=== PATIENT | female | born 1960 | race Caucasian/White ===

== ENCOUNTER 2016-07-23 14:33 | Inpatient (IN) | payer OTHER ==
[~2016-07-23] VITALS: Ht 165.1 cm; Wt 61.7 kg
--- NOTE | 2016-07-23 15:14 | NUR ---
RECEIVED 56 YO FEMALE WITH , ACCORDING TO , PT HAS BEEN INTERMITTENTLY CONFUSED X FEW WEEKS. PT ALSO REPORTS FREQUENT INTERMITTENT DIZZINESS, OFF BALANCE X FEW WEEKS. MORE CONSTANT LAST WEEK OR SO. PT REPORTS GETTING PALPITATIONS INTERMITTENTLY LAST FEW WEEKS, CONSTANT SINCE LAST NIGHT.
--- NOTE | 2016-07-23 15:15 | NUR ---
HEART RATE IN TRIAGE 170. STAT EKG ORDERED.
--- NOTE | 2016-07-23 15:58 | NUR ---
UPON ARRIVAL INTO PT HR 170'S. IMMEDIATELY PLACED ON HYDRAULIC BULL RIVETER OPERATOR. IV ESTABLISHED. 6 MG ADENOSINE GIVEN WITH DR. DIOR AT BEDSIDE. PLACED ON 2LNC. PT'S HR QUICKLY SLOWED TO 110'S THEN AFTER APPROXIMATELY 1 MINUTE SLOWED DOWN TO 90'S. PT A+OX4, STATES SHE FEELS BETTER AND PALPITATIONS ARE GONE. AVSS. AT BEDSIDE FOR SUPPORT
[2016-07-23] MEDS ORDERED: AMITRIPTYLINE H10 M2 PO (16:00)
[2016-07-23 16:08] LABS: ABSOLUTE BASOPHIL COUNT 0 /CUMM (0.0-0.2); ABSOLUTE EOSINOPHIL COUNT 0 /CUMM (0.0-0.7); ABSOLUTE GRANULOCYTE CT 13.5 /CUMM (1.4-6.5); ABSOLUTE LYMPH COUNT 0.6 /CUMM (1.2-3.4); ABSOLUTE MONOCYTE COUNT 0.6 /CUMM (0.10-0.60); BASOPHIL % 0 % (0.0-2.0); EOSINOPHIL % 0.2 % (0-5); GRANULOCYTE % 91.7 % (42.2-75.2); HEMATOCRIT 26.5 % (37-47); MEAN CORPUSCULAR HGB 24.3 PG (27.0-31.0); MEAN CORPUSCULAR HGB CONC 32.9 G/DL (33.0-37.0); MEAN CORPUSCULAR VOLUME 73.8 FL (81.0-99.0); MEAN PLATELET VOLUME 10.3 FL (7.4-10.4); RBC DISTRIBUTION WIDTH 15.8 % (11.5-14.5); RED BLOOD CELL CT 3.59 /CUMM (4.20-5.40); WHITE BLOOD CELL COUNT 14.8 /CUMM (4.8-10.8)
--- NOTE | 2016-07-23 16:15 | ED CARDIAC/CP/PALPITATIONS ---
History of Present Illness General Chief Complaint: Altered Mental Status Stated Complaint: CONFUSION, DIZZINESS, HEADACHE Source: patient, family, old records Exam Limitations: no limitations Vital Signs & Intake/Output Vital Signs & Intake/Output Vital Signs Date Time Temp Pulse Resp B/P Pulse O2 O2 Flow FiO2 Ox Delivery Rate 07/23 1654 98 120/63 07/23 1557 96 16 120/63 100 Nasal 2.0L Cannula 07/23 1553 100 Nasal 2.0L Cannula 07/23 1537 180 07/23 1513 99.6 170 20 110/75 99 Room Air Allergies Coded Allergies: No Known Allergies (07/23/16) Reconcile Medications Amitriptyline HCl 10 MG TABLET 1 TAB PO QPM DIRECTED (Reported) Triage Note: RECEIVED 56 YO FEMALE WITH , ACCORDING TO , PT HAS BEEN INTERMITTENTLY CONFUSED X FEW WEEKS. PT ALSO REPORTS FREQUENT INTERMITTENT DIZZINESS, OFF BALANCE X FEW WEEKS. MORE CONSTANT LAST WEEK OR SO. PT REPORTS GETTING PALPITATIONS INTERMITTENTLY LAST FEW WEEKS, CONSTANT SINCE LAST NIGHT. Triage Nurses Notes Reviewed? yes Onset: Evening Duration: hour(s):, constant, continues in ED, getting worse Timing: recent history Quality/Severity: severe, palpitations Location: central Radiation: no radiation Activities at Onset: rest Prior Chest Pain/Card Workup: no prior cardiac workup Modifying Factors: Improves With: rest. Worsens With: movement. Nitro Today/Relief: no nitro taken today Aspirin Today: no aspirin today Associated Symptoms: dizziness, weakness, confusion LMP (ages 10-50): post menopausal : No Patient currently breastfeeds: No HPI: Over the last 5 years patient complains of episodes of palpitations and rapid heart rate. Several weeks prior to admission the episodes have increased in frequency and severity associated with dizziness headache confusion fatigue improved with rest. 15 hours prior to admission the palpitations became constant. She denies fever chills nausea vomiting diarrhea abdominal pain dysuria rash bleeding chest pain. Past History Travel History Traveled to [place] past 21 day No Medical History Any Pertinent Medical History? see below for history Neurological: CHRONIC HEADACHES EENT: NONE Cardiovascular: NONE Respiratory: NONE Gastrointestinal: NONE Hepatic: NONE Renal: NONE Musculoskeletal: NONE Psychiatric: NONE Endocrine: NONE Blood Disorders: NONE Cancer(s): NONE Surgical History Surgical History: non-contributory Psychosocial History What is your primary language Luxembourgish Tobacco Use: Never used Family History Hx Contributory? Yes Review of Systems Review of Systems Constitutional: Reports: see HPI, weakness. EENTM: Reports: no symptoms. Respiratory: Reports: no symptoms. Cardiovascular: Reports: see HPI, palpitations. GI: Reports: no symptoms. Genitourinary: Reports: no symptoms. Musculoskeletal: Reports: no symptoms. Skin: Reports: no symptoms. Neurological/Psychological: Reports: see HPI, confusion, headache, weakness. Hematologic/Endocrine: Reports: no symptoms. Immunologic/Allergic: Reports: no symptoms. All Other Systems: Reviewed and Negative Physical Exam Physical Exam General Appearance: well developed/nourished, alert, awake, anxious, moderate distress Head: atraumatic, normal appearance Eyes: Bilateral: normal appearance, PERRL, EOMI. Ears, Nose, Throat: normal pharynx, normal ENT inspection, moist mucus membranes Neck: normal inspection, supple, full range of motion, no midline tenderness Respiratory: normal breath sounds, chest non-tender, no respiratory distress, quiet respiration, lungs clear Cardiovascular: regular rate/rhythm, normal peripheral pulses, tachycardia, norml femoral pulses equa Peripheral Pulses: 4+ carotid (R), 4+ carotid (L), 2+ radial (R), 2+ radial (L) Gastrointestinal: normal bowel sounds, soft, non-tender, no organomegaly Back: normal inspection, normal range of motion Extremities: normal inspection, normal capillary refill, normal range of motion, no edema Neurologic/Psych: no motor/sensory deficits, awake, alert, oriented x 3, normal gait, normal mood/affect Reflexes: 2+: bicep (R), bicep (L). Skin: intact, normal color, warm/dry Lymphatic: no anterior cervical shell Core Measures ACS in differential dx? Yes Severe Sepsis Present: No Septic Shock Present: No Progress Differential Diagnosis: AMI, atrial fibrillation, hyperthyroid, PSVT Plan of Care: Orders Procedure Date/time Status Regular Diet 07/23 D Active Patient Data 07/23 1656 Active OXYGEN SETUP (GEN) 07/23 1642 Active Saline Lock 07/23 1642 Active Admit to inpatient 07/23 1642 Active Vital Signs 07/23 1642 Active Activity/Ambulation 07/23 1642 Active Code Status 07/23 1642 Active FREE T4 07/23 1545 Active EKG 07/23 1542 Active TSH REFLEX 07/23 1527 Active TROPONIN LEVEL 07/23 1527 Active MAGNESIUM 07/23 1527 Active COMPREHENSIVE METABOLIC PANEL 07/23 1527 Active CBC WITHOUT DIFFERENTIAL 07/23 1527 Complete EKG 07/23 1516 Active Laboratory Tests 07/23/16 1545: Anion Gap 17 H, Estimated GFR 39 L, BUN/Creatinine Ratio 24.3, Glucose 124 H, Calcium 9.7, Magnesium 1.8, Total Bilirubin 1.0, AST 29, ALT 32, Alkaline Phosphatase 48, Troponin I 0.30 *H, Total Protein 7.9, Albumin 4.4, Globulin 3.5 , Albumin/Globulin Ratio 1.3, Free T4 Pending, TSH &T3 &Free T4 Intrp 7.460 H, CBC w Diff MAN DIFF ORDERED, RBC 3.59 L, MCV 73.8 L, MCH 24.3 L, RDW 15.8 H, MPV 10.3, Gran % 91.7 H, Lymphocytes % 3.8 L, Monocytes % 4.3, Eosinophils % 0.2, Basophils % 0 L, Absolute Granulocytes 13.5 H, Segmented Neutrophils 81 H, Band Neutrophils 9 H, Absolute Lymphocytes 0.6 L, Lymphocytes 5 L, Monocytes 5, Absolute Monocytes 0.6, Absolute Eosinophils 0, Absolute Basophils 0, Platelet Estimate DECREASED, Polychromasia 1+, Hypochromic-Microcytic 2+, Anisocytosis 1+, Microcytic Cells 1+, PUBS MCHC 32.9 L Diagnostic Imaging: Viewed by Me: Radiology Read. Discussed w/RAD: Radiology Read. CXR Impression: Prominence of the cardiac silhouette, without overt pulmonary edema. Pulmonary hypoinflation with left retrocardiac and right basilar opacities. These opacities could reflect atelectasis given low lung volumes. Superimposed infection is not excluded in the appropriate clinical setting. Initial ED EKG: rhythm (SVT), nonspecific ST T wave chg Repeat EKG: changed (NSR) Rhythm Strip: sinus tachycardia Comments: SVT relieved with adenosine 6 mg IV Departure Departure Time of Disposition: 1637 Disposition: STILL A PATIENT Condition: Stable Clinical Impression Primary Impression: SVT (supraventricular tachycardia) Secondary Impressions: Leukocytosis, unspecified Qualifiers: Leukocytosis type: unspecified Qualified Code: D72.829 - Elevated white blood cell count, unspecified Symptomatic anemia Referrals: JENNIFER JIMENEZ,MARIA ELENA Beltran (PCP/Family) Departure Forms: Customer Survey General Discharge Information Admission Note Spoke With: MARYANNE JIMENEZ,SCOOTERITH Documentation of Exam: Documentation of any treatments & extenuating circumstances including Concerns Regarding Discharge (functional status, medication knowledge or non-compliance, living conditions, etc.) that warrant an admission rather than observation: Cardiac monitoring serial lab exam serial EKG cardiology evaluation supplemental oxygen medication adjustment continuing care discharge planning Critical Care Note Critical Care Note Critical Care Time: 30-74 min (40)
[2016-07-23 16:16] LABS: PLATELET COUNT 78 /CUMM (130-400)
--- NOTE | 2016-07-23 16:35 | RADIOLOGY REPORT ---
EXAMINATION: XR PORTABLE CHEST CLINICAL INFORMATION: Palpitations, dizziness. COMPARISON: None. TECHNIQUE: Portable AP view of the chest was obtained. FINDINGS: Single AP view of the chest demonstrates pulmonary hypoinflation. There are patchy infiltrates within the right lung base which are nonspecific but could reflect atelectasis given low lung volumes. Left retrocardiac opacities are also visualized and could reflect atelectasis given low lung volumes. Developing infection cannot be excluded in the appropriate clinical setting. No large pleural effusions or pneumothoraces. Cardiac and mediastinal contours are prominent. No overt pulmonary edema. IMPRESSION: Prominence of the cardiac silhouette, without overt pulmonary edema. Pulmonary hypoinflation with left retrocardiac and right basilar opacities. These opacities could reflect atelectasis given low lung volumes. Superimposed infection is not excluded in the appropriate clinical setting.
--- NOTE | 2016-07-23 16:36 | NUR ---
CRITICAL TEST RESULTS [id number] LM HINKLE 56 F TESTS AND RESULTS: TROPONIN 0.30 Results received and read back by: PADMA TANNER Results received date and time: 07/23/16 1636 The following provider was notified of the results, and read the results back: DR. DIOR Notified date and time: 07/23/16 at 1635
--- NOTE | 2016-07-23 16:54 | NUR ---
PT STATES SHE FEELS MUCH BETTER. HR SINUS 90'S ON MONITOR. 5MG IV LOPRESSOR ADMINISTERED. WILL COTINTUE TO MONITOR BP AND HR
--- NOTE | 2016-07-23 17:20 | History & Physical ---
BRIAN ROBBINS 07/23/16 1720: General Information and HPI MD Statement: I have seen and personally examined LM HINKLE and documented this H&P. The patient is a 56 year old F who presented with a patient stated chief complaint of [confusion, dizziness, imbalance and palpitations]. Source of Information: patient, family Exam Limitations: clinical condition, confusion History of Present Illness: Mrs Hinkle is a 56-year-old lady with a PMH of chronic headaches (?? migraines) managed with amitriptyline 10 mg daily who presents with complaints of two-week duration progressive weakness, imbalance, confusion and new onset palpitations. Information obtained from the patient's : Patient was at her baseline until 2 weeks ago when he noticed her exhibiting generalized weakness, sluggishness in her movements, slow shuffling gait with imbalance. Symptoms have progressed during this time with intermittent episodes of near falls. Addtionally she has exhibited an inability to control herself when attempting to sit down resulting in falling back into her chair on mutliple occasions. Last night at approximately 11 PM she complained of palpitations that lasted most of the night and into this morning prompting them to follow up in the ER. Her reports a transient episode of facial asymmetry this morning @ 1200, what he describes as left lip drooping that resolved within a few minutes. He also reports a noticeable difficulty with her dexterity and getting dressed during this time ROS: She denies any fevers, chills, transient vision loss, choking sensation, numbness in any extremities, chest pain, shortness of breath, loss of bowel/ bladder control. Allergies/Medications Allergies: Coded Allergies: No Known Allergies (07/23/16) Home Med list Amitriptyline HCl 10 MG TABLET 1 TAB PO QPM DIRECTED (Reported) Past History Travel History Traveled to [place] past 21 day No Medical History Neurological: CHRONIC HEADACHES EENT: NONE Cardiovascular: NONE Respiratory: NONE Gastrointestinal: NONE Hepatic: NONE Renal: NONE Musculoskeletal: NONE Psychiatric: NONE Endocrine: NONE Blood Disorders: NONE Cancer(s): NONE Surgical History Surgical History: non-contributory Past Family/Social History Psychosocial History Where do you live? Home Who Do You Live With? spouse Services at Home: None Primary Language: Nigerien Smoking Status: Never Smoked ETOH Use: occasional use Illicit Drug Use: denies illicit drug use Functional Ability ADLs Independent: eating, toileting, bathing. Needs Assist: dressing. Ambulation: independent Review of Systems Review of Systems Constitutional: Reports: see HPI. EENTM: Reports: see HPI. Cardiovascular: Reports: see HPI. Respiratory: Reports: no symptoms. GI: Reports: no symptoms. Genitourinary: Reports: no symptoms. Musculoskeletal: Reports: see HPI. Neurological/Psychological: Reports: see HPI. Exam & Diagnostic Data Last 24 Hrs of Vital Signs/I&O Vital Signs Date Time Temp Pulse Resp B/P Pulse O2 O2 Flow FiO2 Ox Delivery Rate 07/23 2009 98.4 88 20 132/80 99 Room Air 07/23 1851 98.2 84 16 127/60 99 Room Air 07/23 1727 86 16 132/67 100 Nasal 2.0L Cannula 07/23 1654 98 120/63 07/23 1648 94 16 124/69 100 Nasal 2.0L Cannula 07/23 1557 96 16 120/63 100 Nasal 2.0L Cannula 07/23 1553 100 Nasal 2.0L Cannula 07/23 1537 180 07/23 1513 99.6 170 20 110/75 99 Room Air Intake & Output 07/23 1600 07/23 0800 07/23 0000 Intake Total Output Total Balance Patient 136 lb Weight Physical Exam General Appearance Alert, Cooperative, No Acute Distress Skin No Breakdown HEENT EOMI, Mucous Membr. moist/pink Neck Supple Cardiovascular Regular Rate, Normal S1, Normal S2 Lungs Normal Air Movement Abdomen Normal Bowel Sounds, Soft, No Tenderness Neurological Normal Speech, Strength 4/5 LUE, 5/5 all other extremities. CN 3-12 intact. Difficulty with extension of her left fingers. Pronator drift presents in LUE. Unable to assess gait/rhomberg at this time secondary to generalized weakness. Negative babinski on the R but slight upgoing on the left great toe Extremities No Edema, Prominent clubbing in the toes Vascular Pulses Symmetrical Last 24 Hrs of Labs/Obi: Laboratory Tests 07/23/16 2315: Troponin I Pending 07/23/162202: Urine Color YEL, Urine Clarity CLEAR, Urine pH 6.0, Ur Specific [place] >= 1.030 , Urine Protein 30 H, Urine Ketones NEG, Urine Nitrite NEG, Urine Bilirubin NEG , Urine Urobilinogen 0.2, Ur Leukocyte Esterase NEG, Ur Microscopic SEDIMENT EXAMINED, Urine RBC FEW H, Urine WBC 5-10 H, Ur Epithelial Cells MOD H, Hyaline Casts MOD H, Granular Casts FEW H, Urine Mucus MOD H, Urine Hemoglobin NEG, Urine Glucose NEG 07/23/16 1545: Anion Gap 17 H, Estimated GFR 39 L, BUN/Creatinine Ratio 24.3, Glucose 124 H, Calcium 9.7, Magnesium 1.8, Total Bilirubin 1.0, AST 29, ALT 32, Alkaline Phosphatase 48, Troponin I 0.30 *H, Total Protein 7.9, Albumin 4.4, Globulin 3.5 , Albumin/Globulin Ratio 1.3, Free T4 1.73, Total T3 1.50, TSH &T3 &Free T4 Intrp 7.460 H, CBC w Diff MAN DIFF ORDERED, RBC 3.59 L, MCV 73.8 L, MCH 24.3 L, RDW 15.8 H, MPV 10.3, Gran % 91.7 H, Lymphocytes % 3.8 L, Monocytes % 4.3, Eosinophils % 0.2, Basophils % 0 L, Absolute Granulocytes 13.5 H, Segmented Neutrophils 81 H, Band Neutrophils 9 H, Absolute Lymphocytes 0.6 L, Lymphocytes 5 L, Monocytes 5, Absolute Monocytes 0.6, Absolute Eosinophils 0, Absolute Basophils 0, Platelet Estimate DECREASED, Polychromasia 1+, Hypochromic -Microcytic 2+, Anisocytosis 1+, Microcytic Cells 1+, PUBS MCHC 32.9 L Microbiology 07/23 2203 URINE ROUT: Urine Culture - RECD 07/23 1844 BLOOD: Blood Culture - RECD 07/23 1835 BLOOD: Blood Culture - RECD Diagnostic Data CXR Results Prominence of the cardiac silhouette, without overt pulmonary edema. Pulmonary hypoinflation with left retrocardiac and right basilar opacities. These opacities could reflect atelectasis given low lung volumes. Superimposed infection is not excluded in the appropriate clinical setting. Other Results Head CT: No acute intracranial pathology. Progressive moderate generalized volume loss relative to the prior available study of 2005. Chronic appearing lacunar infarcts are present within the left thalamus and right cerebellar hemisphere, which have developed in the interim since 2005. Small areas of encephalomalacia and gliosis in the high frontal lobes bilaterally have also developed in the interim since the prior study. Assessment/Plan Assessment: 56-year-old lady with a PMH of chronic headaches (??migraines) managed with amitriptyline 10 mg daily who presents with complaints of two-week duration progressive weakness, imbalance, confusion and new onset palpitations. VS on admission: BP 110/75, HR 170, RR 20, SPO2 99% on RA, T 99.6 Labs: WBC 14.8, 90% bandemia. H&H 8.7/26.5, platelets 78, chloride 109, bicarbonate 18, BUN/CR 34/1.4 Troponin: 0.30 TSH: 7.[address] as indicated above Problem list: 1. AMS: Infectious etiology versus progressive vascular insufficiency 2. Narrow complex tachycardia 3. Elevated troponins 4. SIRS criteria 5. Anemia 6. Thrombocytopenia 7. Acute kidney injury 8. Elevated TSH Plan: 1. AMS/neuro deficits/CVA: Infectious etiology versus progressive vascular insufficiency * In setting of head CT findings, will obtain neurology consult. DDX: Progressive vascular dementia versus MS * Patient may benefit from MRI of the brain * Neurochecks Q2hrs * Lipid panel, hemoglobin A1c in the a.m. * Orthostatics in the a.m * Echocardiogram and carotid US in the AM * Holding off aspirin in the setting of thrombocytopenia 2. Narrow complex tachycardia/SVT * Unclear etiology of her palpitations at this time. DDX: Hypothyroidism vs infectious source * Patient did receive single dose of adenosine with noticeable prolonged pause, Lopressor 5 mg IV 1 * We'll continue to monitor heart rate and if recurrence of SVT consider starting lopressor 6.25 and titrate up as tolerated 3. Elevated troponins * Troponin: 0.30. Likely secondary to prolonged narrow complex tachycardia. However, in the setting of two-week duration generalized weakness, fatigue, difficulty w/ ambulation, will trend troponins and EKG (2200, 0400) * Echocardiogram in the a.m. * Follow up ProBNP * Cardiology consult in the a.m. * We'll hold off starting on aspirin/heparin in the setting of thrombocytopenia 4. SIRS criteria * Tachycardia, leukocytosis * Follow up blood, urine cultures * Additional DDX: Meningitis/encephalitis. Consider lumbar puncture if AMS develops * ID consult in the a.m. * Follow-up Lyme titer, rapid flu * Consider HIV workup 5. Anemia * Unclear etiology at this time * Follow-up iron studies: Ferritin, transferrin, TIBC * Follow-up B12, folic acid * Stool guaic in the AM 6. Thrombocytopenia * Likely secondary to infectious etiology. However, amitriptyline can be associated with thrombocytopenia. Less likely at this time as patient has been on a low-dose of 10 mg daily 7. Acute kidney injury * Patient received 1 bolus normal saline * We'll start her on maintenance at 75 mL an hour 8. Elevated TSH * Elevation in TSH could be associated to her current clinical presentation. She'll likely benefit from outpatient follow-up with endocrinology 9. Diet: * Heart healthy 10. DVT prophylaxis * ALPs 11. CODE STATUS * Full code As Ranked By This Provider Problem List: 1. Lacunar infarction 2. SVT (supraventricular tachycardia) 3. Demand ischemia of myocardium 4. SIRS (systemic inflammatory response syndrome) 5. Anemia 6. Thrombocytopenia 7. REN (acute kidney injury) Core Measures/Miscellaneous Acute Coronary Syndrome ACS Diagnosis: No Cerebrovascular Accident CVA/TIA Diagnosis: Yes NIH Stroke Scale: Total 1 Date Last Known Well: 07/24/16 Neurological S/S of CVA: Acute Confusion, Muscle Weakness Symptom Start Date: 07/10/16 Bedside Swallow Eval Done: Yes Result of Evaluation: Pass Congestive Heart Failure CHF Diagnosis: No Venous Thromboembolism VTE Risk Factors: Age > 40 VTE Prophylaxis Ordered Inpt: Mechanical (ALPS/TEDS) No Mech VTE prophylaxis d/t: No contraindications No VTE Pharm Prophylaxis d/t: Platelets below ref range VTE Diagnosis: No VTE Type: NONE VTE Confirmed by (Test): NONE Severe Sepsis Severe Sepsis Present: No Septic Shock Septic Shock Present: No Miscellaneous Documentation Attending Case Discussed With: YAYO MADDEN MD Primary Care Physician: MARIA ELENA RODRIGUEZ MD Patient sees these Specialists Dr Dunn Level of Patient Care: Telemetry Consults Needed: Consulting Specialty: Neurology Resident Review Statement Resident Statement: examined this patient, discussed with tech intern, agreed with tech intern, discussed with family, reviewed EMR data (avail), discussed with case mgmt YAYO MADDEN MD 07/24/16 1404: Attending MD Review Statement Attending Statement Attending Statement: examined this patient, discuss w/resident/PA/NUCLEAR CRITICALITY SAFETY ENGINEER, agreed w/resident/PA/NUCLEAR CRITICALITY SAFETY ENGINEER, discussed with family, reviewed EMR data (avail)
--- NOTE | 2016-07-23 17:30 | NUR ---
Emergency Dept [facility] Admit Note: To be admitted to [facility] by DR MADDEN with PALPITATIONS as the diagnosis, to TELE/ ROOM 189-2 location. Nursing Parking Lot Laborer and admitting notified 07/23/16 at 1701
--- NOTE | 2016-07-23 17:44 | NUR ---
REPORT GIVEN TO MARK ZAVALA
--- NOTE | 2016-07-23 17:45 | NUR ---
HOUSE STAFF AT BEDSIDE
--- NOTE | 2016-07-23 18:18 | NUR ---
TRANSPORT HERE FOR PT
--- NOTE | 2016-07-23 18:23 | NUR ---
PT NOW TO GO TO CT BEFORE TRANSPORT TO TELE. PER RESIDENT, PT STILL APPROPRIATE FOR TELE AT THIS TIME
--- NOTE | 2016-07-23 19:33 | CT SCAN REPORT ---
EXAMINATION: CT HEAD WITHOUT CONTRAST CLINICAL INFORMATION: Transient facial droop COMPARISON: MRI of the brain from 12/31/2005 TECHNIQUE: Contiguous axial imaging was performed from the skull base to vertex without intravenous administration of contrast. DLP: 601 mGy-cm. FINDINGS: There is no evidence of acute intracranial hemorrhage or territorial infarction. No abnormal mass effect or midline shift is seen. Ramsey to white matter differentiation is well preserved. No extra-axial fluid collections are identified. There is moderate generalized prominence of the ventricles, sulci, and extra-axial CSF spaces, progressive from 2006. There is a small focus of encephalomalacia and gliosis involving the high right frontal lobe which appears chronic, though which has developed in the interval from 2005. There is a similar area of mild gliosis in the contralateral high left frontal lobe. There are chronic lacunar infarcts in the inferior right cerebellar hemisphere and within the left thalamus, which have also developed in the interim. No acute osseous abnormalities. The paranasal sinuses mastoid air cells and middle ear cavities are clear. There are degenerative changes of both temporomandibular joints. No acute soft tissue abnormalities are evident. IMPRESSION: No acute intracranial pathology. Progressive moderate generalized volume loss relative to the prior available study of 2005. Chronic appearing lacunar infarcts are present within the left thalamus and right cerebellar hemisphere, which have developed in the interim since 2005. Small areas of encephalomalacia and gliosis in the high frontal lobes bilaterally have also developed in the interim since the prior study.
[2016-07-23 20:10] VITALS: BP 132/80
[2016-07-24 04:09] LABS: ABSOLUTE BASOPHIL COUNT 0 /CUMM (0.0-0.2); ABSOLUTE EOSINOPHIL COUNT 0.1 /CUMM (0.0-0.7); ABSOLUTE GRANULOCYTE CT 3.6 /CUMM (1.4-6.5); ABSOLUTE LYMPH COUNT 1.2 /CUMM (1.2-3.4); ABSOLUTE MONOCYTE COUNT 0.4 /CUMM (0.10-0.60); BASOPHIL % 0.3 % (0.0-2.0); EOSINOPHIL % 1.9 % (0-5); GRANULOCYTE % 67.6 % (42.2-75.2); HEMATOCRIT 23.4 % (37-47); MEAN CORPUSCULAR HGB 23.5 PG (27.0-31.0); MEAN CORPUSCULAR HGB CONC 31.9 G/DL (33.0-37.0); MEAN CORPUSCULAR VOLUME 73.7 FL (81.0-99.0); MEAN PLATELET VOLUME 11.1 FL (7.4-10.4); PLATELET COUNT 78 /CUMM (130-400); RBC DISTRIBUTION WIDTH 15.6 % (11.5-14.5); RED BLOOD CELL CT 3.18 /CUMM (4.20-5.40)
[2016-07-24 04:25] LABS: WHITE BLOOD CELL COUNT 5.3 /CUMM (4.8-10.8)
--- NOTE | 2016-07-24 07:46 | PN- Housestaff ---
Subjective Follow-up For: progressive weakness, imbalance, confusion Tele-Events Since Last Visit: SR, hr 95-110 Subjective: Patient seen and examined this morning. She was lying comfortably in bed in no acute distress. She is alert and oriented to time and person. Remains afebrile , otherwise is within normal limits, continues to have weakness in the right upper extremity, otherwise no other complaints. Review of Systems Constitutional: Reports: see HPI. Objective Last 24 Hrs of Vital Signs/I&O Vital Signs Date Time Temp Pulse Resp B/P Pulse O2 O2 Flow FiO2 Ox Delivery Rate 07/24 0814 98.1 100 18 142/70 95 Room Air 07/23 2009 98.4 88 20 132/80 99 Room Air 07/23 1851 98.2 84 16 127/60 99 Room Air 07/23 1727 86 16 132/67 100 Nasal 2.0L Cannula 07/23 1654 98 120/63 07/23 1648 94 16 124/69 100 Nasal 2.0L Cannula 07/23 1557 96 16 120/63 100 Nasal 2.0L Cannula 07/23 1553 100 Nasal 2.0L Cannula 07/23 1537 180 07/23 1513 99.6 170 20 110/75 99 Room Air Intake & Output 07/24 1600 07/24 0800 07/24 0000 Intake Total 400 1000 Output Total Balance 400 1000 Intake, IV 300 1000 Intake, Oral 100 Patient 61.689 kg Weight Physical Exam General Appearance: Alert, Oriented X3, Cooperative, No Acute Distress Cardiovascular: Regular Rate, Normal S1, Normal S2, No Murmurs Lungs: Clear to Auscultation, Normal Air Movement Abdomen: Normal Bowel Sounds, Soft, No Tenderness Neurological: Normal Speech, Strength at 5/5 X4 Ext, Sensation Intact, Cranial Nerves 3-12 NL Extremities: No Clubbing, No Cyanosis, No Edema Current Medications: Current Medications Sig/Cathi Start time Last Medication Dose Route Stop Time Status Admin Acetaminophen 650 MG Q6P PRN 07/23 1815 AC PO Adenosine 0 .STK-MED ONE 07/23 1536 DC IV Adenosine 6 MG ONCE ONE 07/23 1530 DC 07/23 IV 07/23 1531 1537 Aspirin 81 MG DAILY 07/24 1200 AC PO Aspirin 325 MG ONCE ONE 07/23 1645 DC 07/23 PO 07/23 1646 1654 Aspirin 0 .STK-MED ONE 07/23 1644 DC PO Metoprolol Tartrate 5 MG ONCE ONE 07/23 1645 DC 07/23 IV 07/23 1646 1654 Metoprolol Tartrate 0 .STK-MED ONE 07/23 1644 DC IV Oxycodone/ 1 TAB Q6P PRN 07/23 1815 AC Acetaminophen PO Oxycodone/ 2 TAB Q6P PRN 07/23 1815 AC Acetaminophen PO Sodium Chloride 1,000 ML ONCE ONE 07/24 0100 AC 07/24 IV 07/24 1419 0200 Sodium Chloride 1,000 ML BOLUS ONE 07/23 1930 DC 07/23 IV 07/23 202 1537 Last 24 Hrs of Lab/Obi Results Last 24 Hrs of Labs/Mics: Laboratory Tests 07/24/16 0616: Troponin I 0.26 *H, Lyme Disease Antibody Pending 07/24/16 0350: Hemoglobin A1c Pending 07/24/16 0350: Anion Gap 13, Estimated GFR 39 L, BUN/Creatinine Ratio 24.3, Triglycerides 100, Cholesterol 125, LDL Cholesterol, Calc 67, HDL Cholesterol 38 L, Cholesterol/ HDL Ratio 3, CBC w Diff NO MAN DIFF REQ, RBC 3.18 L, MCV 73.7 L, MCH 23.5 L, RDW 15.6 H, MPV 11.1 H, Gran % 67.6, Lymphocytes % 22.5, Monocytes % 7.7, Eosinophils % 1.9, Basophils % 0.3, Absolute Granulocytes 3.6, Absolute Lymphocytes 1.2, Absolute Monocytes 0.4, Absolute Eosinophils 0.1, Absolute Basophils 0, PUBS MCHC 31.9 L, Retic Count 2.80 H 07/23/16 2315: Troponin I 0.33 *H 07/23/16 2203: Urine Color YEL, Urine Clarity CLEAR, Urine pH 6.0, Ur Specific [place] >= 1.030 , Urine Protein 30 H, Urine Ketones NEG, Urine Nitrite NEG, Urine Bilirubin NEG , Urine Urobilinogen 0.2, Ur Leukocyte Esterase NEG, Ur Microscopic SEDIMENT EXAMINED, Urine RBC FEW H, Urine WBC 5-10 H, Ur Epithelial Cells MOD H, Hyaline Casts MOD H, Granular Casts FEW H, Urine Mucus MOD H, Urine Hemoglobin NEG, Urine Glucose NEG 07/23/16 1545: Anion Gap 17 H, Estimated GFR 39 L, BUN/Creatinine Ratio 24.3, Glucose 124 H, Calcium 9.7, Magnesium 1.8, Total Bilirubin 1.0, AST 29, ALT 32, Alkaline Phosphatase 48, Troponin I 0.30 *H, Total Protein 7.9, Albumin 4.4, Globulin 3.5 , Albumin/Globulin Ratio 1.3, Free T4 1.73, Total T3 1.50, TSH &T3 &Free T4 Intrp 7.460 H, CBC w Diff MAN DIFF ORDERED, RBC 3.59 L, MCV 73.8 L, MCH 24.3 L, RDW 15.8 H, MPV 10.3, Gran % 91.7 H, Lymphocytes % 3.8 L, Monocytes % 4.3, Eosinophils % 0.2, Basophils % 0 L, Absolute Granulocytes 13.5 H, Segmented Neutrophils 81 H, Band Neutrophils 9 H, Absolute Lymphocytes 0.6 L, Lymphocytes 5 L, Monocytes 5, Absolute Monocytes 0.6, Absolute Eosinophils 0, Absolute Basophils 0, Platelet Estimate DECREASED, Polychromasia 1+, Hypochromic -Microcytic 2+, Anisocytosis 1+, Microcytic Cells 1+, PUBS MCHC 32.9 L Microbiology 07/23 2202 URINE ROUT: Urine Culture - RES 07/23 1844 BLOOD: Blood Culture - RES 07/23 1835 BLOOD: Blood Culture - RES Assessment/Plan Assessment: 56-year-old lady with a PMH of chronic headaches (??migraines) managed with amitriptyline 10 mg daily who presents with complaints of two-week duration progressive weakness, imbalance, confusion and new onset palpitations. VS on admission: BP 110/75, HR 170, RR 20, SPO2 99% on RA, T 99.6 Labs: WBC 14.8, 90% bandemia. H&H 8.7/26.5, platelets 78, chloride 109, bicarbonate 18, BUN/CR 34/1.4 Troponin: 0.30 TSH: 7.[address] as indicated above Problem list: 1. AMS: Infectious etiology versus progressive vascular insufficiency 2. Narrow complex tachycardia 3. Elevated troponins 4. SIRS criteria 5. Anemia 6. Thrombocytopenia 7. Acute kidney injury 8. Elevated TSH Plan: 1. AMS/neuro deficits/CVA: Infectious etiology versus progressive vascular insufficiency * In setting of head CT findings, will obtain neurology consult. DDX: Progressive vascular dementia versus MS * Patient may benefit from MRI of the brain * Neurochecks Q2hrs * Lipid panel within normal limits, hemoglobin A1c pending * Orthostatics in the a.m * Holding off aspirin in the setting of thrombocytopenia 78. 2. Narrow complex tachycardia * Unclear etiology of her palpitations at this time. DDX: Hypothyroidism vs infectious source * Patient did receive single dose of adenosine with noticeable prolonged pause, Lopressor 5 mg IV 1 * We'll continue to monitor heart rate and if recurrence of SVT consider starting lopressor * Cardiology consulted, but follow-up recommendations. 3. Elevated troponins * Troponin: 0.30>> 0.26. Likely secondary to prolonged narrow complex tachycardia. However, in the setting of two-week duration generalized weakness, fatigue, difficulty w/ ambulation, will trend troponins and EKG (2200, 0400) * Echocardiogram pending * Follow up ProBNP * Cardiology consult in the a.m. 4. SIRS criteria upon admission * Tachycardia, leukocytosis>> resolved * blood Cx pending, urine cultures no growth to date * Pending Lyme titer, rapid flu negative 5. Anemia * Unclear etiology at this time * Follow-up iron studies: Ferritin, transferrin, TIBC * B12, folic acid pending * Stool guaic in the AM 6. Thrombocytopenia * Likely secondary to infectious etiology. However, amitriptyline can be associated with thrombocytopenia. Less likely at this time as patient has been on a low-dose of 10 mg daily 7. Acute kidney injury * Patient received 1 bolus normal saline * On maintenance at 75 mL an hour 8. Elevated TSH * Elevation in TSH could be associated to her current clinical presentation. She'll likely benefit from outpatient follow-up with endocrinology 9. Diet: * Heart healthy 10. DVT prophylaxis * ALPs 11. CODE STATUS * Full code Problem List: 1. REN (acute kidney injury) 2. Thrombocytopenia 3. Anemia 4. Lacunar infarction 5. SVT (supraventricular tachycardia) Pain Ratin Pain Location: [facility] Pain Goal: Remain pain free Pain Plan: Mild pain pathway Tomorrow's Labs & Rationales: bep for creatnine monitoring Consulting Request: Consulting Specialty: Neurology
[2016-07-24 08:14] VITALS: BP 142/70
--- NOTE | 2016-07-24 13:56 | Admission Certification ---
Admission Certification Certification Statement - As attending physician, I certify that at the time of - admission, based on clinical presentation, severity of - symptoms, need for further diagnostic testing and - therapeutic interventions, and risk of adverse outcomes - without in-hospital treatment, in my clinical assessment, - this patient requires an acute hospital stay for a minimum - of two nights or longer. I have also considered psychsocial - factors such as support system, advanced age, financial - issues, cognitive issues, and failed out-patient treatments, - past re-admission history, safety of patient, and lack of - compliance as applicable. Specific rationale supporting this admission is: CVA, anemia and thrombocytopenia
[2016-07-24 14:00] VITALS: BP 142/70
--- NOTE | 2016-07-24 14:04 | PN- Att Addend ---
Attending Addendum Attending Brief Note Patient has no complaints General Appearance: Alert, No Acute Distress Skin: Grossly normal HEENT: [place] Neck: Supple, No JVD Cardiovascular: Regular Rate, Normal S1, Normal S2, No Murmurs Lungs: Clear to Auscultation, Normal Air Movement Abdomen: Normal Bowel Sounds, Soft, No Tenderness Neurological: Left-sided weakness both upper and lower extremity, exaggerated reflexes all 4 extremities, upgoing plantar left-sided, left hemisphere visual field defect Extremities: No Clubbing, No Cyanosis, No Edema Vascular: Normal Pulses Assessment 56-year-old female with history of chronic migraines currently on amitriptyline presenting with weakness duration with complaints of balance, confusion and possible left-sided facial droop. She also had new onset palpitation 2 days back which led to her ER presentation. Patient was found to be in SVT which resolved with adenosis and. Currently she remains in sinus rhythm however she does have positive troponins that are downtrending. On examination she does have left-sided deficit which correlates with her CAT scan finding of left thalamus and right cerebellar lacunar stroke that is chronic appearing. I suspect she might have had had a stroke 3 weeks back presenting with her imbalance and weakness. Mostly involving left hand. Incidental finding of anemia with low iron levels and thrombocytopenia. She also has subclinical hyperthyroidism. Apparently patient was lost to follow-up for last year or so hence there is no previous blood work other than 2 weeks back when she had a CBC that showed similar hematology findings. However at the time that was negative. We will get a in-house workup including stool guaiac, and hematology evaluation. We'll also get a neurology evaluation for possible subacute stroke. Plan Start statins Continue aspirin Get MRI brain Neurology and hematology evaluation Guaiac stools Start levothyroxine 25 g once daily Carotid ultrasound and echocardiogram Continue to monitor patient on telemetry Hold amitriptyline DVT prophylaxis PT and OT evaluation Speech evaluation Current Medications Sig/Cathi Start time Last Medication Dose Route Stop Time Status Admin Acetaminophen 650 MG Q6P PRN 07/23 1815 AC PO Adenosine 0 .STK-MED ONE 07/23 1536 DC IV Adenosine 6 MG ONCE ONE 07/23 1530 DC 07/23 IV 07/23 1531 1537 Aspirin 81 MG DAILY 07/24 1200 AC PO Aspirin 325 MG ONCE ONE 07/23 1645 DC 07/23 PO 07/23 1646 1654 Aspirin 0 .STK-MED ONE 07/23 1644 DC PO Metoprolol Succinate 25 MG DAILY 07/24 1330 AC PO Metoprolol Tartrate 5 MG ONCE ONE 07/23 1645 DC 07/23 IV 07/23 1646 1654 Metoprolol Tartrate 0 .STK-MED ONE 07/23 1644 DC IV Oxycodone/ 1 TAB Q6P PRN 07/23 1815 AC Acetaminophen PO Oxycodone/ 2 TAB Q6P PRN 07/23 1815 AC Acetaminophen PO Sodium Chloride 1,000 ML ONCE ONE 07/24 0100 AC 07/24 IV 07/24 1419 0200 Sodium Chloride 1,000 ML BOLUS ONE 07/23 1930 DC 07/23 IV 07/23 202 1537 Laboratory Tests 07/24 07/24 07/24 0616 0350 0350 Chemistry Sodium (137 - 145 mmol/L) 145 Potassium (3.5 - 5.1 mmol/L) 4.1 Chloride (98 - 107 mmol/L) 110 H Carbon Dioxide (22 - 30 mmol/L) 22 Anion Gap (5 - 16) 13 BUN (7 - 17 mg/dL) 34 H Creatinine (0.5 - 1.0 mg/dL) 1.4 H Estimated GFR (>60 ml/min) 39 L BUN/Creatinine Ratio (7 - 25 %) 24.3 Hemoglobin A1c Pending Iron (37 - 170 ug/dL) 19 L TIBC (265 - 497 ug/dL) 328 Ferritin (11.1 - 264 ng/mL) Pending Lactate Dehydrogenase (313 - 618 U/L) 928 H Troponin I (< 0.11 ng/ml) 0.26 *H Triglycerides (<150 mg/dL) 100 Cholesterol (<200 MG/DL) 125 LDL Cholesterol, Calc (65 - 129 mg/dL) 67 HDL Cholesterol (40 - 60 mg/dL) 38 L Cholesterol/HDL Ratio (0.00 - 4.23 %) 3 Hematology CBC w Diff NO MAN DIFF REQ WBC (4.8 - 10.8 /CUMM) 5.3 RBC (4.20 - 5.40 /CUMM) 3.18 L Hgb (12.0 - 16.0 G/DL) 7.5 L Hct (37 - 47 %) 23.4 L MCV (81.0 - 99.0 FL) 73.7 L MCH (27.0 - 31.0 PG) 23.5 L RDW (11.5 - 14.5 %) 15.6 H Plt Count (130 - 400 /CUMM) 78 L MPV (7.4 - 10.4 FL) 11.1 H Gran % (42.2 - 75.2 %) 67.6 Lymphocytes % (20.5 - 51.1 %) 22.5 Monocytes % (1.7 - 9.3 %) 7.7 Eosinophils % (0 - 5 %) 1.9 Basophils % (0.0 - 2.0 %) 0.3 Absolute Granulocytes (1.4 - 6.5 /CUMM) 3.6 Absolute Lymphocytes (1.2 - 3.4 /CUMM) 1.2 Absolute Monocytes (0.10 - 0.60 /CUMM) 0.4 Absolute Eosinophils (0.0 - 0.7 /CUMM) 0.1 Absolute Basophils (0.0 - 0.2 /CUMM) 0 PUBS MCHC (33.0 - 37.0 G/DL) 31.9 L Retic Count (0.5 - 2.0 %) 2.80 H Haptoglobin Pending Serology Lyme Disease Antibody Pending 07/23 07/23 2315 2203 Chemistry Troponin I (< 0.11 ng/ml) 0.33 *H Urines Urine Color (YEL,AMB,STR) YEL Urine Clarity (CLEAR) CLEAR Urine pH (5.0 - 8.0) 6.0 Ur Specific [place] (1.001 - 1.035) >= 1.030 Urine Protein (NEG,<30 MG/DL) 30 H Urine Ketones (NEG) NEG Urine Nitrite (NEG) NEG Urine Bilirubin (NEG) NEG Urine Urobilinogen (0.1 - 1.0 EU/dl) 0.2 Ur Leukocyte Esterase (NEG) NEG Ur Microscopic SEDIMENT EXAMINED Urine RBC (0 - 5 /HPF) FEW H Urine WBC (0 - 2 /HPF) 5-10 H Ur Epithelial Cells (NONE,FEW) MOD H Hyaline Casts (0/LPF) MOD H Granular Casts (NONE /LPF) FEW H Urine Mucus (FEW,NONE) MOD H Urine Hemoglobin (NEG) NEG Urine Glucose (N MG/DL) NEG 07/23 0545 Chemistry Sodium (137 - 145 mmol/L) 144 Potassium (3.5 - 5.1 mmol/L) 4.2 Chloride (98 - 107 mmol/L) 109 H Carbon Dioxide (22 - 30 mmol/L) 18 L Anion Gap (5 - 16) 17 H BUN (7 - 17 mg/dL) 34 H Creatinine (0.5 - 1.0 mg/dL) 1.4 H Estimated GFR (>60 ml/min) 39 L BUN/Creatinine Ratio (7 - 25 %) 24.3 Glucose (65 - 99 mg/dL) 124 H Calcium (8.4 - 10.2 mg/dL) 9.7 Magnesium (1.6 - 2.3 mg/dL) 1.8 Total Bilirubin (0.2 - 1.3 mg/dL) 1.0 AST (14 - 36 U/L) 29 ALT (9 - 52 U/L) 32 Alkaline Phosphatase (<127 U/L) 48 Troponin I (< 0.11 ng/ml) 0.30 *H Total Protein (6.3 - 8.2 g/dL) 7.9 Albumin (3.5 - 5.0 g/dL) 4.4 Globulin (1.9 - 4.2 gm/dL) 3.5 Albumin/Globulin Ratio (1.1 - 2.2 %) 1.3 Free T4 (0.64 - 1.79 ng/dL) 1.73 Total T3 (0.97 - 1.69 ng/mL) 1.50 TSH &T3 &Free T4 Intrp (0.270 - 4.20 uIU/mL) 7.460 H Hematology CBC w Diff MAN DIFF ORDERED WBC (4.8 - 10.8 /CUMM) 14.8 H RBC (4.20 - 5.40 /CUMM) 3.59 L Hgb (12.0 - 16.0 G/DL) 8.7 L Hct (37 - 47 %) 26.5 L MCV (81.0 - 99.0 FL) 73.8 L MCH (27.0 - 31.0 PG) 24.3 L RDW (11.5 - 14.5 %) 15.8 H Plt Count (130 - 400 /CUMM) 78 L MPV (7.4 - 10.4 FL) 10.3 Gran % (42.2 - 75.2 %) 91.7 H Lymphocytes % (20.5 - 51.1 %) 3.8 L Monocytes % (1.7 - 9.3 %) 4.3 Eosinophils % (0 - 5 %) 0.2 Basophils % (0.0 - 2.0 %) 0 L Absolute Granulocytes (1.4 - 6.5 /CUMM) 13.5 H Segmented Neutrophils (42.2 - 75.2 %) 81 H Band Neutrophils (0.0 - 5.0 %) 9 H Absolute Lymphocytes (1.2 - 3.4 /CUMM) 0.6 L Lymphocytes (20.5 - 51.1 %) 5 L Monocytes (1.7 - 9.3 %) 5 Absolute Monocytes (0.10 - 0.60 /CUMM) 0.6 Absolute Eosinophils (0.0 - 0.7 /CUMM) 0 Absolute Basophils (0.0 - 0.2 /CUMM) 0 Platelet Estimate (ADEQUATE) DECREASED Polychromasia 1+ Hypochromic-Microcytic 2+ Anisocytosis 1+ Microcytic Cells 1+ PUBS MCHC (33.0 - 37.0 G/DL) 32.9 L Vital Signs Date Time Temp Pulse Resp B/P Pulse O2 O2 Flow FiO2 Ox Delivery Rate 07/24 0814 98.1 100 18 142/70 95 Room Air 07/23 2009 98.4 88 20 132/80 99 Room Air 07/23 1851 98.2 84 16 127/60 99 Room Air 07/23 1727 86 16 132/67 100 Nasal 2.0L Cannula 07/23 1654 98 120/63 07/23 1648 94 16 124/69 100 Nasal 2.0L Cannula 07/23 1557 96 16 120/63 100 Nasal 2.0L Cannula 07/23 1553 100 Nasal 2.0L Cannula 07/23 1537 180 07/23 1513 99.6 170 20 110/75 99 Room Air
[2016-07-24 15:30] VITALS: BP 162/88
--- NOTE | 2016-07-24 16:25 | Cons- Cardiology ---
General Information and HPI Consulting Request Date of Consult: 07/24/16 Requested By: YAYO MADDEN MD Reason for Consult: Palpitations Source of Information: patient History of Present Illness: This is a 56-year-old female with a reported history of migraine headaches who presents to with a chief complaint of moderate intensity palpitations which started suddenly while at rest. Symptoms were not associated with significant chest pain but she did the notice some associated dyspnea and dizziness. She denies any prior episodes of this severity but does note some low -level shorter duration palpitations in the past. She denies a history of syncope. She has apparently been more off balance in recent weeks. No exertional chest pain or dyspnea. Denies fever, diarrhea, decreased appetite, bleeding, or syncope. There was some concern by her family that she had a transient facial droop. She denies associated dysarthria. On my interview with her today she was resting comfortably without recurrent palpitations. Her palpitations clearly terminated after being given adenosine in the emergency room. Allergies/Medications Allergies: Coded Allergies: No Known Allergies (07/23/16) Home Med List: Amitriptyline HCl 10 MG TABLET 1 TAB PO QPM DIRECTED (Reported) Current Medications: Current Medications Sig/Cathi Start time Last Medication Dose Route Stop Time Status Admin Acetaminophen 650 MG Q6P PRN 07/23 1815 AC PO Aspirin 81 MG DAILY 07/24 1200 AC 07/24 PO 1456 Aspirin 325 MG ONCE ONE 07/23 1645 DC 07/23 PO 07/23 1646 1654 Aspirin 0 .STK-MED ONE 07/23 1644 DC PO Atorvastatin Calcium 40 MG 1700 07/24 1700 AC PO Levothyroxine Sodium 0.025 MG DAILY AC 07/24 1457 AC PO Metoprolol Succinate 25 MG DAILY 07/24 1330 AC 07/24 PO 1456 Metoprolol Tartrate 5 MG ONCE ONE 07/23 1645 DC 07/23 IV 07/23 1646 1654 Metoprolol Tartrate 0 .STK-MED ONE 07/23 1644 DC IV Oxycodone/ 1 TAB Q6P PRN 07/23 1815 AC Acetaminophen PO Oxycodone/ 2 TAB Q6P PRN 07/23 1815 AC Acetaminophen PO Patient Medication 1 UNIT ONE NR 07/24 1515 DC Teaching ED 07/24 1530 Sodium Chloride 1,000 ML ONCE ONE 07/24 0100 DC 07/24 IV 07/24 1419 0200 Sodium Chloride 1,000 ML BOLUS ONE 07/23 1930 DC 07/23 IV 07/23 2028 1537 Review of Systems Review of Systems: Review of systems as per HPI. The remainder of a 10 point review of systems was reviewed and was otherwise negative. 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 Home Who Do You Live With? spouse Services at Home: None Primary Language: Kazakh Smoking Status: Never Smoked ETOH Use: occasional use Illicit Drug Use: denies illicit drug use Functional Ability ADLs Independent: eating, toileting, bathing. Needs Assist: dressing. Ambulation: independent Exam & Diagnostic Data Vital Signs and I&O Vital Signs Date Time Temp Pulse Resp B/P Pulse O2 O2 Flow FiO2 Ox Delivery Rate 07/24 1456 97 152/90 07/24 0814 98.1 100 18 142/70 95 Room Air 07/23 2010 98.4 88 20 132/80 99 Room Air 07/23 1851 98.2 84 16 127/60 99 Room Air 07/23 1727 86 16 132/67 100 Nasal 2.0L Cannula 07/23 1654 98 120/63 07/23 1648 94 16 124/69 100 Nasal 2.0L Cannula Intake & Output 07/24 1600 07/24 0800 07/24 0000 07/23 1600 07/23 0800 07/23 0000 Intake Total 400 1000 Output Total Balance 400 1000 Intake, IV 300 1000 Intake, Oral 100 Patient 136 lb 136 lb Weight Physical Exam: General: no apparent distress. Alert. Eyes: No obvious scleral icterus. HEENT: No jugular venous distention or abnormal jugular venous pulsations. Cardiovascular: Normal intensity S1/S2. PMI not grossly displaced. Respiratory: Lungs clear to auscultation bilaterally. Abdomen: Soft, nontender with no guarding or rebound tenderness. Musculoskeletal: No clubbing or cyanosis noted Skin: No obvious rashes or ulcerations. Neurologic: Decreased strength on the left Lymph: No gross lymphadenopathy. Labs/Obi Results: Laboratory Tests 07/24 07/24 07/24 1510 0616 0350 Chemistry Hemoglobin A1c Pending Iron (37 - 170 ug/dL) 19 L TIBC (265 - 497 ug/dL) 328 Ferritin (11.1 - 264 ng/mL) 25.0 Lactate Dehydrogenase (313 - 618 U/L) 928 H Troponin I (< 0.11 ng/ml) 0.26 *H Hematology ESR Westergren Pending Haptoglobin Pending Serology Lyme Disease Antibody Pending 07/24 07/23 0350 2315 Chemistry Sodium (137 - 145 mmol/L) 145 Potassium (3.5 - 5.1 mmol/L) 4.1 Chloride (98 - 107 mmol/L) 110 H Carbon Dioxide (22 - 30 mmol/L) 22 Anion Gap (5 - 16) 13 BUN (7 - 17 mg/dL) 34 H Creatinine (0.5 - 1.0 mg/dL) 1.4 H Estimated GFR (>60 ml/min) 39 L BUN/Creatinine Ratio (7 - 25 %) 24.3 Troponin I (< 0.11 ng/ml) 0.33 *H Triglycerides (<150 mg/dL) 100 Cholesterol (<200 MG/DL) 125 LDL Cholesterol, Calc (65 - 129 mg/dL) 67 HDL Cholesterol (40 - 60 mg/dL) 38 L Cholesterol/HDL Ratio (0.00 - 4.23 %) 3 Hematology CBC w Diff NO MAN DIFF REQ WBC (4.8 - 10.8 /CUMM) 5.3 RBC (4.20 - 5.40 /CUMM) 3.18 L Hgb (12.0 - 16.0 G/DL) 7.5 L Hct (37 - 47 %) 23.4 L MCV (81.0 - 99.0 FL) 73.7 L MCH (27.0 - 31.0 PG) 23.5 L RDW (11.5 - 14.5 %) 15.6 H Plt Count (130 - 400 /CUMM) 78 L MPV (7.4 - 10.4 FL) 11.1 H Gran % (42.2 - 75.2 %) 67.6 Lymphocytes % (20.5 - 51.1 %) 22.5 Monocytes % (1.7 - 9.3 %) 7.7 Eosinophils % (0 - 5 %) 1.9 Basophils % (0.0 - 2.0 %) 0.3 Absolute Granulocytes (1.4 - 6.5 /CUMM) 3.6 Absolute Lymphocytes (1.2 - 3.4 /CUMM) 1.2 Absolute Monocytes (0.10 - 0.60 /CUMM) 0.4 Absolute Eosinophils (0.0 - 0.7 /CUMM) 0.1 Absolute Basophils (0.0 - 0.2 /CUMM) 0 PUBS MCHC (33.0 - 37.0 G/DL) 31.9 L Retic Count (0.5 - 2.0 %) 2.80 H 07/23 2203 Urines Urine Color (YEL,AMB,STR) YEL Urine Clarity (CLEAR) CLEAR Urine pH (5.0 - 8.0) 6.0 Ur Specific [place] (1.001 - 1.035) >= 1.030 Urine Protein (NEG,<30 MG/DL) 30 H Urine Ketones (NEG) NEG Urine Nitrite (NEG) NEG Urine Bilirubin (NEG) NEG Urine Urobilinogen (0.1 - 1.0 EU/dl) 0.2 Ur Leukocyte Esterase (NEG) NEG Ur Microscopic SEDIMENT EXAMINED Urine RBC (0 - 5 /HPF) FEW H Urine WBC (0 - 2 /HPF) 5-10 H Ur Epithelial Cells (NONE,FEW) MOD H Hyaline Casts (0/LPF) MOD H Granular Casts (NONE /LPF) FEW H Urine Mucus (FEW,NONE) MOD H Urine Hemoglobin (NEG) NEG Urine Glucose (N MG/DL) NEG 07/23 1545 Chemistry Sodium (137 - 145 mmol/L) 144 Potassium (3.5 - 5.1 mmol/L) 4.2 Chloride (98 - 107 mmol/L) 109 H Carbon Dioxide (22 - 30 mmol/L) 18 L Anion Gap (5 - 16) 17 H BUN (7 - 17 mg/dL) 34 H Creatinine (0.5 - 1.0 mg/dL) 1.4 H Estimated GFR (>60 ml/min) 39 L BUN/Creatinine Ratio (7 - 25 %) 24.3 Glucose (65 - 99 mg/dL) 124 H Calcium (8.4 - 10.2 mg/dL) 9.7 Magnesium (1.6 - 2.3 mg/dL) 1.8 Total Bilirubin (0.2 - 1.3 mg/dL) 1.0 AST (14 - 36 U/L) 29 ALT (9 - 52 U/L) 32 Alkaline Phosphatase (<127 U/L) 48 Troponin I (< 0.11 ng/ml) 0.30 *H Total Protein (6.3 - 8.2 g/dL) 7.9 Albumin (3.5 - 5.0 g/dL) 4.4 Globulin (1.9 - 4.2 gm/dL) 3.5 Albumin/Globulin Ratio (1.1 - 2.2 %) 1.3 Free T4 (0.64 - 1.79 ng/dL) 1.73 Total T3 (0.97 - 1.69 ng/mL) 1.50 TSH &T3 &Free T4 Intrp (0.270 - 4.20 uIU/mL) 7.460 H Hematology CBC w Diff MAN DIFF ORDERED WBC (4.8 - 10.8 /CUMM) 14.8 H RBC (4.20 - 5.40 /CUMM) 3.59 L Hgb (12.0 - 16.0 G/DL) 8.7 L Hct (37 - 47 %) 26.5 L MCV (81.0 - 99.0 FL) 73.8 L MCH (27.0 - 31.0 PG) 24.3 L RDW (11.5 - 14.5 %) 15.8 H Plt Count (130 - 400 /CUMM) 78 L MPV (7.4 - 10.4 FL) 10.3 Gran % (42.2 - 75.2 %) 91.7 H Lymphocytes % (20.5 - 51.1 %) 3.8 L Monocytes % (1.7 - 9.3 %) 4.3 Eosinophils % (0 - 5 %) 0.2 Basophils % (0.0 - 2.0 %) 0 L Absolute Granulocytes (1.4 - 6.5 /CUMM) 13.5 H Segmented Neutrophils (42.2 - 75.2 %) 81 H Band Neutrophils (0.0 - 5.0 %) 9 H Absolute Lymphocytes (1.2 - 3.4 /CUMM) 0.6 L Lymphocytes (20.5 - 51.1 %) 5 L Monocytes (1.7 - 9.3 %) 5 Absolute Monocytes (0.10 - 0.60 /CUMM) 0.6 Absolute Eosinophils (0.0 - 0.7 /CUMM) 0 Absolute Basophils (0.0 - 0.2 /CUMM) 0 Platelet Estimate (ADEQUATE) DECREASED Polychromasia 1+ Hypochromic-Microcytic 2+ Anisocytosis 1+ Microcytic Cells 1+ PUBS MCHC (33.0 - 37.0 G/DL) 32.9 L Diagnostic Data EKG Results Tracings were personally reviewed and show a narrow complex tachycardia at 166 bpm. Subsequent ECG shows sinus tachycardia. CXR Results Prominence of the cardiac silhouette, without overt pulmonary edema. Pulmonary hypoinflation with left retrocardiac and right basilar opacities. These opacities could reflect atelectasis given low lung volumes. Superimposed infection is not excluded in the appropriate clinical setting. Other Results Head CT No acute intracranial pathology. Progressive moderate generalized volume loss relative to the prior available study of 2005. Chronic appearing lacunar infarcts are present within the left thalamus and right cerebellar hemisphere, which have developed in the interim since 2005. Small areas of encephalomalacia and gliosis in the high frontal lobes bilaterally have also developed in the interim since the prior study. Telemetry tracings were personally reviewed and shows sinus rhythm/sinus tachycardia Assessment/Plan Assessment/Plan 1. Narrow complex tachycardia terminated with adenosine, consistent with AVNRT 2. Recent neurologic symptoms with abnormal CT, concern for subacute CVA? 3. History of migraine headache 4. Anemia/thrombocytopenia of unclear etiology 5. Mild renal insufficiency 6. Elevated troponin with flat troponin curve consistent with demand ischemia from the SVT 7. Subclinical hypothyroidism The patient's presenting palpitations appeared to be due to AVNRT which terminated with adenosine administration in the emergency room. The elevated troponins are consistent with demand ischemia. We have started her on daily beta nelly and she may be a candidate for SVT ablation in the future. We'll obtain a transthoracic echocardiogram. Some of her recent neurologic complaints are not likely related to the SVT and given the abnormal CT scan a neurology consult has been requested. She will be monitored on telemetry for any evidence of associated atrial arrhythmias. Agree with the empiric low dose aspirin and statin therapy for now. She will require additional workup of her anemia and thrombocytopenia. She is currently afebrile and I suspect the initial leukocytosis was a stress reaction. Osmar García MD [facility] Consult Acknowledgment - Thank you for your consult request.
--- NOTE | 2016-07-24 17:06 | ULTRASOUND REPORT ---
EXAMINATION: US DUPLEX CAROTID AND VERTEBRAL CLINICAL INFORMATION: Progressive weakness, left upper x-ray deficit. COMPARISON: None. TECHNIQUE: Real-time ultrasound and Doppler techniques (integrating B-mode 2D vascular images, Doppler spectral analysis and color flow Doppler imaging) were utilized to interrogate the extracranial carotid and vertebral arteries bilaterally. The degree of stenosis determined by criteria similar to NASCET. FINDINGS: There is minimal intimal thickening in both carotid arteries without any significant plaque. Normal antegrade flow seen in both carotid arteries. On the right peak systolic/end diastolic velocity distal CCA measures 101/35.4 cm/second. Peak systolic/end diastolic velocity proximal ICA measures 86.4/26.7 cm/second. This is 0-49% range stenosis. Mild increase peak systolic velocity right distal ICA could be secondary to minimal plaque and mild tortuosity. On the left peak systolic/end diastolic velocity distal CCA measures 122/35.4 cm/second. Peak systolic/end diastolic velocity proximal ICA measures 73.9/23.6 cm/second. This is 0-49% range stenosis. There is normal antegrade flow seen in both vertebral arteries. IMPRESSION: No hemodynamically significant stenosis in either carotid arteries. Normal antegrade flow seen in both vertebral arteries.
[2016-07-25 00:33] VITALS: BP 160/80
[2016-07-25 08:24] VITALS: BP 162/94
--- NOTE | 2016-07-25 08:58 | PN- Att Addend ---
Attending Addendum Attending Brief Note Patient has no complaints General Appearance: Alert, No Acute Distress Skin: Grossly normal HEENT: PEERLA Neck: Supple, No JVD Cardiovascular: Regular Rate, Normal S1, Normal S2, No Murmurs Lungs: Clear to Auscultation, Normal Air Movement Abdomen: Normal Bowel Sounds, Soft, No Tenderness Neurological: Left-sided weakness both upper and lower extremity, exaggerated reflexes all 4 extremities, upgoing plantar left-sided, left hemisphere visual field defect Extremities: No Clubbing, No Cyanosis, No Edema Vascular: Normal Pulses Assessment Left-sided weakness with likely severe involving right thalamus and left cerebellar. Patient remains in sinus rhythm. At this time MRI and echocardiogram are pending. Anemia and thrombocytopenia of unclear etiology. Appreciate hematology input. Patient has elevated ESR and LDH with possible suggestion of underlying inflammatory process. We must exclude autoimmune disease especially lupus. Carotid ultrasound is negative. At this time echogram is pending. Plan Continue aspirin and statin Get MRI brain Lupus workup Neurology evaluation Guaiac stools levothyroxine 25 g once daily Carotid ultrasound and echocardiogram Continue to monitor patient on telemetry Hold amitriptyline DVT prophylaxis PT and OT evaluation Speech evaluation Current Medications Sig/Cathi Start time Last Medication Dose Route Stop Time Status Admin Acetaminophen 650 MG Q6P PRN 07/23 1815 AC PO Aspirin 81 MG DAILY 07/24 1200 AC 07/24 PO 1456 Atorvastatin Calcium 40 MG 1700 07/24 1700 AC 07/24 PO 1800 Levothyroxine Sodium 0.025 MG DAILY AC 07/24 1457 AC 07/25 PO 0622 Metoprolol Succinate 25 MG DAILY 07/24 1330 AC 07/24 PO 1456 Oxycodone/ 1 TAB Q6P PRN 07/23 1815 AC Acetaminophen PO Oxycodone/ 2 TAB Q6P PRN 07/23 1815 AC Acetaminophen PO Patient Medication 1 UNIT ONE NR 07/24 1515 DC Teaching ED 07/24 1530 Sodium Chloride 1,000 ML ONCE ONE 07/24 0100 DC 07/24 IV 07/24 1419 0200 Laboratory Tests 07/24 1510 Hematology ESR Westergren (0 - 20 MM) 128 H Vital Signs Date Time Temp Pulse Resp B/P Pulse O2 O2 Flow FiO2 Ox Delivery Rate 07/25 0824 99.7 96 18 162/94 95 Room Air 07/25 0033 97.8 96 20 160/80 96 Room Air 07/24 1530 98.4 92 20 162/88 96 Room Air 07/24 1456 97 152/90 07/24 1400 98 142/70
--- NOTE | 2016-07-25 10:49 | Cons- Hematology ---
See Addendum General Information and HPI Consulting Request Date of Consult: 07/25/16 Requested By: YAYO MADDEN MD Reason for Consult: anemia, thrombocytopenia Source of Information: patient, old records Exam Limitations: no limitations History of Present Illness: Ms. Petty is a 56-year-old female with chronic headaches on amitriptyline and hypertension who presented with palpitation for one day and weakness for one week. She states she was feeling well until the day prior to presentation when she had palpitation and lightheadedness. She has never had any symptoms like these before. She seems a little more confused and has balance issues. She denies any issues with fever, chills, shortness of breath, chest pain, nausea, vomiting, diarrhea, constipation, blood in stool, blood in urine, or weight loss. Since admission, she has underwent CT of the head which demonstrated "progressive moderate generalized volume loss relative to the prior available study of 2005. Chronic appearing lacunar infarcts are present within the left thalamus and right cerebellar hemisphere, which have developed in the interim since 2005. Small areas of encephalomalacia and gliosis in the high frontal lobes bilaterally have also developed in the interim since the prior study." Blood work have demonstrated anemia and thrombocytopenia. This is unclear as to the chronicity of these lab findings. She currently denies any new symptoms. Allergies/Medications Allergies: Coded Allergies: No Known Allergies (07/23/16) Home Med List: Amitriptyline HCl 10 MG TABLET 1 TAB PO QPM DIRECTED (Reported) Current Medications: Current Medications Sig/Cathi Start time Last Medication Dose Route Stop Time Status Admin Acetaminophen 650 MG Q6P PRN 07/23 1815 AC PO Aspirin 81 MG DAILY 07/24 1200 AC 07/24 PO 1456 Atorvastatin Calcium 40 MG 1700 07/24 1700 AC 07/24 PO 1800 Levothyroxine Sodium 0.025 MG DAILY AC 07/24 1457 AC 07/25 PO 0622 Metoprolol Succinate 25 MG DAILY 07/24 1330 AC 07/24 PO 1456 Oxycodone/ 1 TAB Q6P PRN 07/23 1815 AC Acetaminophen PO Oxycodone/ 2 TAB Q6P PRN 07/23 1815 AC Acetaminophen PO Patient Medication 1 UNIT ONE NR 07/24 1515 DC Teaching ED 07/24 1530 Sodium Chloride 1,000 ML ONCE ONE 07/24 0100 DC 07/24 IV 07/24 1419 0200 Review of Systems Review of Systems Constitutional: Denies: chills, fever, malaise, weakness. EENTM: Denies: blurred vision, double vision. Cardiovascular: Reports: palpitations. Denies: chest pain, orthopena, peripheral edema, syncope. Respiratory: Denies: cough, short of breath. GI: Denies: abdominal pain, diarrhea, nausea, bloody stool. Genitourinary: Denies: dysuria, frequency, hematuria. Musculoskeletal: Denies: back pain. Skin: Denies: rash. Neurological/Psychological: Reports: anxiety, ataxia, confusion, headache. Denies: numbness, paresthesia, tremors, weakness. Hematologic/Endocrine: Denies: bruising, bleeding. Immunologic/Allergic: Denies: lymphadenopathy. All Other Systems: Reviewed and Negative Past History Travel History Traveled to [place] past 21 day No Medical History Neurological: CHRONIC HEADACHES EENT: NONE Cardiovascular: NONE Respiratory: NONE Gastrointestinal: NONE Hepatic: NONE Renal: NONE Musculoskeletal: NONE Psychiatric: NONE Endocrine: NONE Blood Disorders: NONE Cancer(s): NONE NUCLEAR CARDIOLOGY TECHNOLOGIST/Reproductive: NONE Surgical History Surgical History: non-contributory Psychosocial History Where Do You Live? Home Who Do You Live With? spouse Services at Home: None Primary Language: Mohawk Smoking Status: Never Smoked ETOH Use: occasional use Illicit Drug Use: denies illicit drug use Functional Ability ADLs Independent: eating, toileting, bathing. Needs Assist: dressing. Ambulation: independent Exam & Diagnostic Data Vital Signs and I&O Vital Signs Date Time Temp Pulse Resp B/P Pulse O2 O2 Flow FiO2 Ox Delivery Rate 07/25 0824 99.7 96 18 162/94 95 Room Air 07/25 0033 97.8 96 20 160/80 96 Room Air 07/24 1530 98.4 92 20 162/88 96 Room Air 07/24 1456 97 152/90 07/24 1400 98 142/70 Intake & Output 07/25 1600 07/25 0800 07/25 0000 Intake Total 150 780 Output Total 400 300 Balance -250 480 Intake, IV 300 Intake, Oral 150 480 Number 0 Bowel Movements Output, Urine 400 300 Physical Exam General Appearance: alert, awake, comfortable Head: atraumatic, normal appearance Eyes: Bilateral: PERRL. Ears, Nose, Throat: normal pharynx Neck: normal inspection Respiratory: normal breath sounds, chest non-tender, no respiratory distress Cardiovascular: tachycardia Gastrointestinal: normal bowel sounds, soft, non-tender, no organomegaly Extremities: normal inspection, no edema Cranial Nerves: normal hearing, abnormal speech (slow, slightly slurred) Skin: intact, normal color Lymphatic: no anterior cervical shell Last 48 Hours of Lab Results: Laboratory Tests 07/25 07/24 07/24 07/24 0900 1510 0616 0350 Chemistry Hemoglobin A1c Pending Iron (37 - 170 ug/dL) 19 L TIBC (265 - 497 ug/dL) 328 Ferritin (11.1 - 264 ng/mL) 25.0 Lactate Dehydrogenase (313 - 618 U/L) 928 H Troponin I (< 0.11 ng/ml) 0.26 *H Hematology ESR Westergren (0 - 20 MM) 128 H Haptoglobin Pending Immunology ANCA Pending Serology Lyme Disease Antibody Pending 07/24 07/23 0350 2315 Chemistry Sodium (137 - 145 mmol/L) 145 Potassium (3.5 - 5.1 mmol/L) 4.1 Chloride (98 - 107 mmol/L) 110 H Carbon Dioxide (22 - 30 mmol/L) 22 Anion Gap (5 - 16) 13 BUN (7 - 17 mg/dL) 34 H Creatinine (0.5 - 1.0 mg/dL) 1.4 H Estimated GFR (>60 ml/min) 39 L BUN/Creatinine Ratio (7 - 25 %) 24.3 Troponin I (< 0.11 ng/ml) 0.33 *H Triglycerides (<150 mg/dL) 100 Cholesterol (<200 MG/DL) 125 LDL Cholesterol, Calc (65 - 129 mg/dL) 67 HDL Cholesterol (40 - 60 mg/dL) 38 L Cholesterol/HDL Ratio (0.00 - 4.23 %) 3 Hematology CBC w Diff NO MAN DIFF REQ WBC (4.8 - 10.8 /CUMM) 5.3 RBC (4.20 - 5.40 /CUMM) 3.18 L Hgb (12.0 - 16.0 G/DL) 7.5 L Hct (37 - 47 %) 23.4 L MCV (81.0 - 99.0 FL) 73.7 L MCH (27.0 - 31.0 PG) 23.5 L RDW (11.5 - 14.5 %) 15.6 H Plt Count (130 - 400 /CUMM) 78 L MPV (7.4 - 10.4 FL) 11.1 H Gran % (42.2 - 75.2 %) 67.6 Lymphocytes % (20.5 - 51.1 %) 22.5 Monocytes % (1.7 - 9.3 %) 7.7 Eosinophils % (0 - 5 %) 1.9 Basophils % (0.0 - 2.0 %) 0.3 Absolute Granulocytes (1.4 - 6.5 /CUMM) 3.6 Absolute Lymphocytes (1.2 - 3.4 /CUMM) 1.2 Absolute Monocytes (0.10 - 0.60 /CUMM) 0.4 Absolute Eosinophils (0.0 - 0.7 /CUMM) 0.1 Absolute Basophils (0.0 - 0.2 /CUMM) 0 PUBS MCHC (33.0 - 37.0 G/DL) 31.9 L Retic Count (0.5 - 2.0 %) 2.80 H 07/23 2203 Urines Urine Color (YEL,AMB,STR) YEL Urine Clarity (CLEAR) CLEAR Urine pH (5.0 - 8.0) 6.0 Ur Specific [place] (1.001 - 1.035) >= 1.030 Urine Protein (NEG,<30 MG/DL) 30 H Urine Ketones (NEG) NEG Urine Nitrite (NEG) NEG Urine Bilirubin (NEG) NEG Urine Urobilinogen (0.1 - 1.0 EU/dl) 0.2 Ur Leukocyte Esterase (NEG) NEG Ur Microscopic SEDIMENT EXAMINED Urine RBC (0 - 5 /HPF) FEW H Urine WBC (0 - 2 /HPF) 5-10 H Ur Epithelial Cells (NONE,FEW) MOD H Hyaline Casts (0/LPF) MOD H Granular Casts (NONE /LPF) FEW H Urine Mucus (FEW,NONE) MOD H Urine Hemoglobin (NEG) NEG Urine Glucose (N MG/DL) NEG 07/23 1545 Chemistry Sodium (137 - 145 mmol/L) 144 Potassium (3.5 - 5.1 mmol/L) 4.2 Chloride (98 - 107 mmol/L) 109 H Carbon Dioxide (22 - 30 mmol/L) 18 L Anion Gap (5 - 16) 17 H BUN (7 - 17 mg/dL) 34 H Creatinine (0.5 - 1.0 mg/dL) 1.4 H Estimated GFR (>60 ml/min) 39 L BUN/Creatinine Ratio (7 - 25 %) 24.3 Glucose (65 - 99 mg/dL) 124 H Calcium (8.4 - 10.2 mg/dL) 9.7 Magnesium (1.6 - 2.3 mg/dL) 1.8 Total Bilirubin (0.2 - 1.3 mg/dL) 1.0 AST (14 - 36 U/L) 29 ALT (9 - 52 U/L) 32 Alkaline Phosphatase (<127 U/L) 48 Troponin I (< 0.11 ng/ml) 0.30 *H Total Protein (6.3 - 8.2 g/dL) 7.9 Albumin (3.5 - 5.0 g/dL) 4.4 Globulin (1.9 - 4.2 gm/dL) 3.5 Albumin/Globulin Ratio (1.1 - 2.2 %) 1.3 Free T4 (0.64 - 1.79 ng/dL) 1.73 Total T3 (0.97 - 1.69 ng/mL) 1.50 TSH &T3 &Free T4 Intrp (0.270 - 4.20 uIU/mL) 7.460 H Hematology CBC w Diff MAN DIFF ORDERED WBC (4.8 - 10.8 /CUMM) 14.8 H RBC (4.20 - 5.40 /CUMM) 3.59 L Hgb (12.0 - 16.0 G/DL) 8.7 L Hct (37 - 47 %) 26.5 L MCV (81.0 - 99.0 FL) 73.8 L MCH (27.0 - 31.0 PG) 24.3 L RDW (11.5 - 14.5 %) 15.8 H Plt Count (130 - 400 /CUMM) 78 L MPV (7.4 - 10.4 FL) 10.3 Gran % (42.2 - 75.2 %) 91.7 H Lymphocytes % (20.5 - 51.1 %) 3.8 L Monocytes % (1.7 - 9.3 %) 4.3 Eosinophils % (0 - 5 %) 0.2 Basophils % (0.0 - 2.0 %) 0 L Absolute Granulocytes (1.4 - 6.5 /CUMM) 13.5 H Segmented Neutrophils (42.2 - 75.2 %) 81 H Band Neutrophils (0.0 - 5.0 %) 9 H Absolute Lymphocytes (1.2 - 3.4 /CUMM) 0.6 L Lymphocytes (20.5 - 51.1 %) 5 L Monocytes (1.7 - 9.3 %) 5 Absolute Monocytes (0.10 - 0.60 /CUMM) 0.6 Absolute Eosinophils (0.0 - 0.7 /CUMM) 0 Absolute Basophils (0.0 - 0.2 /CUMM) 0 Platelet Estimate (ADEQUATE) DECREASED Polychromasia 1+ Hypochromic-Microcytic 2+ Anisocytosis 1+ Microcytic Cells 1+ PUBS MCHC (33.0 - 37.0 G/DL) 32.9 L Imaging/Other Studies: CT head 07/23/2016: No acute intracranial pathology. Progressive moderate generalized volume loss relative to the prior available study of 2005. Chronic appearing lacunar infarcts are present within the left thalamus and right cerebellar hemisphere, which have developed in the interim since 2005. Small areas of encephalomalacia and gliosis in the high frontal lobes bilaterally have also developed in the interim since the prior study. Assessment/Plan Assessment: Ms. Petty is a 56-year-old female with chronic headaches and hypertension presents to the hospital with palpitation, confusion, weakness, and anemia with thrombocytopenia. Blood work on admission demonstrated hgb of 8.7 and platelet of 78,000. There is no blood work prior to this except on 06/29 which was 8.9 and platelet of 71, 000. From this, it seems stable for the last 3-4 weeks. I don't have previous blood work to determine trend. Her anemia is microcytic with MCV of 73-74. Reticulocyte is lower than expected for her degree of anemia. Platelet has a relatively normal MPV. There is no obvious evidence of platelet destruction. She does not seem to have any underlying liver disease. Review of the smear demonstrated anisocytosis and few eliptocytes. From these findings, she likely has a myelosuppressive process. Etiologies would include infections, medications, nutritional deficiency, hemoglobinopathies, inflammatory disease, and MPN. Iron studies demonstrate low serum iron, normal TIBC, and ferritin is low normal. This suggest an anemia of inflammation with potential iron deficiency. Folate is normal on 06/29/16. She has no signs of infection at the moment. MCV would be lower than it is for hemoglobinopathy diseases but is a possibility. Medication includes amitriptyline which have been reported to cause agranulocytosis. It may be worthwhile to stop this for now. ESR is elevated which may be a sign of inflammatory disease. Vasculitis work up may be reasonable. Rare causes includes PNH and MPN. This would need flow cytometry and bone marrow biopsy. This is likely not needed at the moment. Given the lower iron level and no previous colonoscopy, she should have it evaluated. She can start with occult blood evaluation for the stool. She can be started on oral iron afterward. Recommendations: 1. Obtain occult blood testing on stool 2. Ferrous sulfate 325 mg PO TID, if possible start after stool collection 3. GI evaluation for colonoscopy: potential can be done as outpatient 4. Evaluate for vasculitis and inflammatory disease 5. Hold amitriptyline 6. Follow up MRI brain Problem List: 1. Thrombocytopenia 2. Anemia Other Findings/Comments: Please call [phone] with any questions or concerns Consult Acknowledgment - Thank you for your consult request.
--- NOTE | 2016-07-25 11:43 | PN- Housestaff ---
CANDIE JIMENEZ,[facility] 07/25/16 1143: Subjective Follow-up For: CVA Tele-Events Since Last Visit: Sinus rhythm/sinus tachycardia Heart rate 90-100 No event Subjective: Patient was seen and examined this morning, she was lying comfortably in her bed having breakfast with no complain. Patient didn't report any chest pain, palpitation. She still have the weakness and imbalance on ambulation, she denied weakness or difficulty having her breakfast, denied any choking sensation. She denied any fever, chills, abdominal pain, had a bowel movement yesterday denied any blood with stool, no urinary issues, no hematuria. Review of Systems Constitutional: Denies: see HPI. Objective Last 24 Hrs of Vital Signs/I&O Vital Signs Date Time Temp Pulse Resp B/P Pulse O2 O2 Flow FiO2 Ox Delivery Rate 07/25 1157 96 162/94 07/25 0824 99.7 96 18 162/94 95 Room Air 07/25 0033 97.8 96 20 160/80 96 Room Air 07/24 1530 98.4 92 20 162/88 96 Room Air 07/24 1456 97 152/90 Intake & Output 07/25 1600 07/25 0800 07/25 0000 Intake Total 480 150 780 Output Total 400 300 Balance 480 -250 480 Intake, IV 300 Intake, Oral 480 150 480 Number 0 Bowel Movements Output, Urine 400 300 Physical Exam General Appearance: Alert, Oriented X3, Cooperative, No Acute Distress Skin: No Rashes, No Breakdown, No Significant Lesion HEENT: Atraumatic, PERRLA, EOMI, Mucous Membr. moist/pink Neck: Supple Cardiovascular: Regular Rate, Normal S1, Normal S2, No Murmurs Lungs: Clear to Auscultation, Normal Air Movement Abdomen: Normal Bowel Sounds, Soft, No Tenderness Neurological: Normal Speech, Strength at 5/5 X4 Ext, Normal Tone, Sensation Intact, Cranial Nerves 3-12 NL, Reflexes 2+, Ataxia finger to nose no dysmeteria bilaterially Dysdiadochokinesia on left astereognosia over the left side speech normal Extremities: No Clubbing, No Cyanosis, No Edema, Normal Pulses Assessment/Plan Assessment: 56-year-old lady with a PMH of chronic headaches (??migraines) managed with amitriptyline 10 mg daily who presents with complaints of two-week duration progressive weakness, imbalance, confusion and new onset palpitations. VS on admission: BP 110/75, HR 170, RR 20, SPO2 99% on RA, T 99.6 Labs: WBC 14.8, 90% bandemia. H&H 8.7/26.5, platelets 78, chloride 109, bicarbonate 18, BUN/CR 34/1.4 Troponin: 0.30 TSH: 7.[address] as indicated above Problem list: 1. AMS: Infectious etiology versus progressive vascular insufficiency 2. Narrow complex tachycardia 3. Elevated troponins 4. SIRS criteria 5. Anemia 6. Thrombocytopenia 7. Acute kidney injury 8. Elevated TSH Plan: 1. CVA * CT head without contrast 07/23 No acute intracranial pathology. Progressive moderate generalized volume loss relative to the prior available study of 2005. Chronic appearing lacunar infarcts are present within the left thalamus and right cerebellar hemisphere, which have developed in the interim since 2005. Small areas of encephalomalacia and gliosis in the high frontal lobes bilaterally have also developed in the interim since the prior study. * MRI brain without YESENIA - Multiple acute to subacute infarcts within the right occipital lobe, the right periventricular white matter posteriorly, the left middle frontal gyrus, and possibly the left parietal postcentral gyrus. - Chronic infarcts within the right occipital lobe, the left thalamus, the cerebellar hemispheres, and the parietal post central gyri bilaterally. Moderate chronic microangiopathy and global cerebral volume loss that is greatest within the parietal lobes bilaterally. * Carotid Doppler ultrasound 07/24 No hemodynamically significant stenosis in either carotid arteries. Normal antegrade flow seen in both vertebral arteries. * Neurology consultation was placed Dr. Shelby * Rule out embolic source * Recommendation for MRA * Keep systolic blood pressure less than 140 * Continue Neurochecks Q2hrs * Continue atorvastatin 40 mg daily * Continue aspirin 81 mg daily * Lipid panel within normal limits * Orthostatic measurement on 07/24 is negative * Lyme antibody positive, titer still pending * ESR 128 high * ISMAEL, ANCA pending * Infectious cause such as HIV, hepatitis is on differential, lab was ordered per hematology recommendations * blood Cx pending, urine cultures no growth to date 2. Narrow complex tachycardia * Unclear etiology of her palpitations at this time. DDX: Hypothyroidism vs infectious source * Patient did receive single dose of adenosine with noticeable prolonged pause, Lopressor 5 mg IV 1 * Trop * Cardiology consultation was obtained, eitology could be AVNRT * Increase metoprolol succinate to 50 mg daily * Cardiology consulted, but follow-up recommendations 3. Elevated troponins * Troponin is trending down. Likely secondary to prolonged narrow complex tachycardia. However, in the setting of two-week duration generalized weakness, fatigue, difficulty w/ ambulation, will trend troponins and EKG (2200, 0400) * Echocardiogram pending 4. Pancytopenia * Unclear etiology at this time * Hematology consultation was obtained * Could be nutritional, infection, inflammatory * Peripheral smear was ordered, showed anisocytosis and poikilocytosis but no schistocytes * Lactate dehydrogenase is elevated but no elevated bilirubin * Lupus workup was ordered * Serum iron level is 19, TIBC 328, ferretin 25 * Start ferritin sulfate 325 3 times a day, obtain stool guaiac before starting the medication * Patient has microcytic anemia hematocrit is 74 * Continue hold amitriptaline 5. Acute kidney injury * Patient received 1 bolus normal saline * BUN/creatinine 34/1.4 * 6. Elevated TSH * Synthroid 25 mg daily * TSH 7.46, free T4 1.73 7. Diet: * Heart healthy 8. DVT prophylaxis * ALPs 9. CODE STATUS * Full code Consultation cardiology, neurology, hematology, PT, OT Problem List: 1. SVT (supraventricular tachycardia) 2. Symptomatic anemia 3. Anemia 4. Thrombocytopenia 5. REN (acute kidney injury) 6. CVA (cerebral vascular accident) Pain Ratin Pain Location: N/A Pain Goal: Pain 4 or less Pain Plan: Mild pain pathway Tomorrow's Labs & Rationales: CBC, CMP, HIV, Hepatitis panel Consulting Request: Consulting Specialty: Neurology JESSICA JOY MD 07/27/16 2696: Attending MD Review Statement Attending Statement Attending Assessment/Plan: Non Hospitalist Patient
--- NOTE | 2016-07-25 11:45 | MRI REPORT ---
EXAMINATION: MR BRAIN WITHOUT CONTRAST CLINICAL INFORMATION: Weakness and ataxia. COMPARISON: Head CT 12/22/2015. TECHNIQUE: MRI of the brain without contrast was obtained using routine sequences. FINDINGS: There are multiple small acute to subacute embolic infarcts located within the right occipital lobe, the right periventricular white matter posteriorly, the left middle frontal gyrus, and possibly the left parietal postcentral gyrus. There is a chronic-appearing infarct within the right occipital lobe with associated encephalomalacia, gliosis, and facilitated diffusion. Chronic lacunar infarct within the left thalamus. Chronic lacunar infarcts within the cerebellar hemispheres bilaterally. There is moderate chronic microangiopathy. Global cerebral volume loss with frontoparietal lobe predominance. Chronic infarcts within the parietal postcentral gyri bilaterally. There is no hydrocephalus, extra-axial surface collection, or herniation. The major flow voids at the skull base are preserved. There is no intracranial hemorrhage on the gradient recalled echo acquisition. The midline structures are normal. The cerebellar tonsils are normally positioned. The craniocervical junction is normal. Osseous marrow signal intensity is homogenous. The visualized soft tissues are unremarkable. IMPRESSION: - Multiple acute to subacute infarcts within the right occipital lobe, the right periventricular white matter posteriorly, the left middle frontal gyrus, and possibly the left parietal postcentral gyrus. - Chronic infarcts within the right occipital lobe, the left thalamus, the cerebellar hemispheres, and the parietal post central gyri bilaterally. Moderate chronic microangiopathy and global cerebral volume loss that is greatest within the parietal lobes bilaterally.
[2016-07-25 13:09] LABS: ABSOLUTE BASOPHIL COUNT 0 /CUMM (0.0-0.2); ABSOLUTE EOSINOPHIL COUNT 0 /CUMM (0.0-0.7); ABSOLUTE GRANULOCYTE CT 5.1 /CUMM (1.4-6.5); ABSOLUTE LYMPH COUNT 0.7 /CUMM (1.2-3.4); ABSOLUTE MONOCYTE COUNT 0.3 /CUMM (0.10-0.60); BASOPHIL % 0.3 % (0.0-2.0); EOSINOPHIL % 0.8 % (0-5); GRANULOCYTE % 82.6 % (42.2-75.2); MEAN CORPUSCULAR HGB 24.1 PG (27.0-31.0); MEAN CORPUSCULAR HGB CONC 32.5 G/DL (33.0-37.0); MEAN PLATELET VOLUME 11.9 FL (7.4-10.4); PLATELET COUNT 113 /CUMM (130-400); RBC DISTRIBUTION WIDTH 15.5 % (11.5-14.5); RED BLOOD CELL CT 3.51 /CUMM (4.20-5.40); WHITE BLOOD CELL COUNT 6.2 /CUMM (4.8-10.8)
--- NOTE | 2016-07-25 13:33 | PN- Cardiology ---
Subjective Subjective: The patient is awake, alert, feels improved from a cardiac standpoint The events of the last 24 hours as well as telemetry were reviewed. Review of Systems: The review of systems is negative for chest pains, palpitations nor lightheadedness. The remainder of the 14 point review of systems is noncontributory with the exception of above. Objective Vital Signs and I&Os Vital Signs Date Time Temp Pulse Resp B/P Pulse O2 O2 Flow FiO2 Ox Delivery Rate 07/25 1157 96 162/94 07/25 0824 99.7 96 18 162/94 95 Room Air 07/25 0033 97.8 96 20 160/80 96 Room Air 07/24 1530 98.4 92 20 162/88 96 Room Air 07/24 1456 97 152/90 07/24 1400 98 142/70 Intake & Output 07/25 1600 07/25 0800 07/25 0000 07/24 1600 07/24 0800 07/24 0000 Intake Total 150 780 602 449 9006 Output Total 400 300 725 Balance -250 480 477 615 8569 Intake, IV 300 963 004 9919 Intake, Oral 150 480 100 Number 0 Bowel Movements Output, Urine 400 300 725 Patient 136 lb Weight Physical Exam: General: Nontoxic, no apparent distress. HEENT: Sclera and conjunctiva within normal limits, without xanthelasmas. Neck: Carotids 2+ without bruits. Respiratory: Clear to auscultation, air movement is good, without accessory respiratory muscle use. Heart: Regular rate and rhythm, without murmurs, without JVD. Abdomen: Soft, nontender, no masses, normoactive bowel sounds. Extremities: Without clubbing, cyanosis, without edema. Neuro: Mildly decreased strength on left Skin: Within normal limits without lesions. Psych: Mood and affect: Normal Current Medications: Current Medications Sig/Cathi Start time Last Medication Dose Route Stop Time Status Admin Acetaminophen 650 MG Q6P PRN 07/23 1815 AC PO Aspirin 81 MG DAILY 07/24 1200 AC 07/25 PO 1157 Atorvastatin Calcium 40 MG 1700 07/24 1700 AC 07/24 PO 1800 Levothyroxine Sodium 0.025 MG DAILY AC 07/24 1457 AC 07/25 PO 0622 Metoprolol Succinate 25 MG DAILY 07/24 1330 AC 07/25 PO 1157 Oxycodone/ 1 TAB Q6P PRN 07/23 1815 AC Acetaminophen PO Oxycodone/ 2 TAB Q6P PRN 07/23 181 AC Acetaminophen PO Patient Medication 1 UNIT ONE NR 07/24 1515 DC Teaching ED 07/24 1530 Sodium Chloride 1,000 ML ONCE ONE 07/24 0100 DC 07/24 IV 07/24 1419 0200 Results Last 48 Hrs of Labs/Mics: Laboratory Tests 07/25/16 1215: CBC w Diff MAN DIFF ORDERED, WBC Pending, RBC Pending, Hgb Pending, Hct Pending, MCV Pending, MCH Pending, RDW Pending, Plt Count Pending, MPV Pending, Gran % Pending, Lymphocytes % Pending, Monocytes % Pending, Eosinophils % Pending, Basophils % Pending, Absolute Granulocytes Pending, Segmented Neutrophils Pending, Absolute Lymphocytes Pending, Absolute Monocytes Pending, Absolute Eosinophils Pending, Absolute Basophils Pending, PUBS MCHC Pending, ISMAEL Titer Pending, Anti-Nuclear Antibody Pending 07/25/16 0900: ANCA Pending 07/24/16 1510: ESR Westergren 128 H 07/24/16 0616: Lyme Ab (Western Blot) Pending, Lyme IgG 18 kDa Band Pending, Lyme IgG 23 kDa Band Pending, Lyme IgG 28 kDa Band Pending, Lyme IgG 30 kDa Band Pending, Lyme IgG 39 kDa Band Pending, Lyme IgG 41 kDa Band Pending, Lyme IgG 45 kDa Band Pending, Lyme IgG 58 kDa Band Pending, Lyme IgG 66 kDa Band Pending, Lyme IgG 93 kDa Band Pending, Lyme IgM (Western Blot) Pending, Lyme IgM 23 kDa Band Pending, Lyme IgM 39 kDa Band Pending, Lyme IgM 41 kDa Band Pending 07/24/16 0616: Iron 19 L, TIBC 328, Ferritin 25.0, Lactate Dehydrogenase 928 H, Troponin I 0.26 *H, Haptoglobin Pending, Lyme Disease Antibody 1.92 *H 07/24/16 0350: Hemoglobin A1c Pending 07/24/16 0350: Anion Gap 13, Estimated GFR 39 L, BUN/Creatinine Ratio 24.3, Triglycerides 100, Cholesterol 125, LDL Cholesterol, Calc 67, HDL Cholesterol 38 L, Cholesterol/ HDL Ratio 3, CBC w Diff MAN DIFF ORDERED, RBC 3.18 L, MCV 73.7 L, MCH 23.5 L, RDW 15.6 H, MPV 11.1 H, Gran % 67.6, Lymphocytes % 22.5, Monocytes % 7.7, Eosinophils % 1.9, Basophils % 0.3, Absolute Granulocytes 3.6, Segmented Neutrophils Pending, Absolute Lymphocytes 1.2, Absolute Monocytes 0.4, Absolute Eosinophils 0.1, Absolute Basophils 0, PUBS MCHC 31.9 L, Retic Count 2.80 H 07/23/16 2315: Troponin I 0.33 *H 07/23/162202: Urine Color YEL, Urine Clarity CLEAR, Urine pH 6.0, Ur Specific [place] >= 1.030 , Urine Protein 30 H, Urine Ketones NEG, Urine Nitrite NEG, Urine Bilirubin NEG , Urine Urobilinogen 0.2, Ur Leukocyte Esterase NEG, Ur Microscopic SEDIMENT EXAMINED, Urine RBC FEW H, Urine WBC 5-10 H, Ur Epithelial Cells MOD H, Hyaline Casts MOD H, Granular Casts FEW H, Urine Mucus MOD H, Urine Hemoglobin NEG, Urine Glucose NEG 07/23/16 1545: Anion Gap 17 H, Estimated GFR 39 L, BUN/Creatinine Ratio 24.3, Glucose 124 H, Calcium 9.7, Magnesium 1.8, Total Bilirubin 1.0, AST 29, ALT 32, Alkaline Phosphatase 48, Troponin I 0.30 *H, Total Protein 7.9, Albumin 4.4, Globulin 3.5 , Albumin/Globulin Ratio 1.3, Free T4 1.73, Total T3 1.50, TSH &T3 &Free T4 Intrp 7.460 H, CBC w Diff MAN DIFF ORDERED, RBC 3.59 L, MCV 73.8 L, MCH 24.3 L, RDW 15.8 H, MPV 10.3, Gran % 91.7 H, Lymphocytes % 3.8 L, Monocytes % 4.3, Eosinophils % 0.2, Basophils % 0 L, Absolute Granulocytes 13.5 H, Segmented Neutrophils 81 H, Band Neutrophils 9 H, Absolute Lymphocytes 0.6 L, Lymphocytes 5 L, Monocytes 5, Absolute Monocytes 0.6, Absolute Eosinophils 0, Absolute Basophils 0, Platelet Estimate DECREASED, Polychromasia 1+, Hypochromic -Microcytic 2+, Anisocytosis 1+, Microcytic Cells 1+, PUBS MCHC 32.9 L Microbiology 07/23 2202 URINE ROUT: Urine Culture - COMP Assessment/Plan Assessment/Plan 1. Narrow complex tachycardia terminated with adenosine, consistent with AVNRT 2. Recent neurologic symptoms with abnormal CT, concern for subacute CVA? 3. History of migraine headache 4. Anemia/thrombocytopenia of unclear etiology 5. Mild renal insufficiency 6. Elevated troponin with flat troponin curve consistent with demand ischemia from the SVT 7. 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 Follow-up with EP will likely be performed as an outpatient. We will attempt to increase her regimen of metoprolol to 50 mg by mouth daily for further arrhythmia suppression, and especially given her hypertension. CVA: Awaiting further input by neurology. Given the patient's finding of supraventricular tachycardia, consideration for degradation and atrial fibrillation must as well be given. If an ablation for AVNRT is not performed, consideration for an implantation of a Linq device (may be done as an outpatient ) will be given Continue telemetry? Yes
[2016-07-25 15:28] VITALS: BP 138/78
--- NOTE | 2016-07-25 15:29 | Cons- Neurology ---
General Information and HPI Consulting Request Date of Consult: 07/25/16 Requested By: YAYO MADDEN MD History of Present Illness: 56-year-old female admitted to Hospital when she had persistent palpitations. She has a history of chronic headache disorder but otherwise states that she has been in good medical health Was noted about 2 weeks ago that she had some problems walking, and there may have been some problem with left upper extremity disuse There was no fall or head trauma or loss of consciousness There was questionable left-sided facial weakness. Symptoms have been persistent but not progressive Allergies/Medications Allergies: Coded Allergies: No Known Allergies (07/23/16) Home Med List: Amitriptyline HCl 10 MG TABLET 1 TAB PO QPM DIRECTED (Reported) Current Medications: Current Medications Sig/Cathi Start time Last Medication Dose Route Stop Time Status Admin Acetaminophen 650 MG Q6P PRN 07/23 1815 AC PO Aspirin 81 MG DAILY 07/24 1200 AC 07/25 PO 1157 Atorvastatin Calcium 40 MG 1700 07/24 1700 AC 07/24 PO 1800 Levothyroxine Sodium 0.025 MG DAILY AC 07/24 1457 AC 07/25 PO 0622 Metoprolol Succinate 25 MG DAILY 07/24 1330 AC 07/25 PO 1157 Oxycodone/ 1 TAB Q6P PRN 07/23 1815 AC Acetaminophen PO Oxycodone/ 2 TAB Q6P PRN 07/23 1815 AC Acetaminophen PO Patient Medication 1 UNIT ONE NR 07/24 1515 [facility] ED 07/24 1530 Review of Systems Review of Systems: No diplopia or vertigo, no difficulty with speech or swallowing, no chest pains or breathing difficulties, no abdominal pain or vomiting, no incontinence, no falls, no sensory disturbance, no history of seizure, swelling, or recent fevers Other systems reviewed are negative Past History Travel History Traveled to [place] past 21 day No Medical History Neurological: CHRONIC HEADACHES EENT: NONE Cardiovascular: NONE Respiratory: NONE Gastrointestinal: NONE Hepatic: NONE Renal: NONE Musculoskeletal: NONE Psychiatric: NONE Endocrine: NONE Blood Disorders: NONE Cancer(s): NONE 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 Home Who Do You Live With? spouse Services at Home: None Primary Language: [place] Smoking Status: Never Smoked ETOH Use: occasional use Illicit Drug Use: denies illicit drug use Functional Ability ADLs Independent: eating, toileting, bathing. Needs Assist: dressing. Ambulation: independent Exam & Diagnostic Data Vital Signs and I&O Vital Signs Date Time Temp Pulse Resp B/P Pulse O2 O2 Flow FiO2 Ox Delivery Rate 07/25 1157 96 162/94 07/25 0824 99.7 96 18 162/94 95 Room Air 07/25 0033 97.8 96 20 160/80 96 Room Air 07/24 1530 98.4 92 20 162/88 96 Room Air Intake & Output 07/25 1600 07/25 0800 07/25 0000 Intake Total 480 150 780 Output Total 400 300 Balance 480 -250 480 Intake, IV 300 Intake, Oral 480 150 480 Number 0 Bowel Movements Output, Urine 400 300 Physical Exam: Alert, follows most commands, fund of knowledge mildly impaired, recall intact, attention span reasonable, cooperative, no dysarthria Heart sounds normal, no carotid bruits, distal pulses intact Extraocular movements full, pupils equal and reactive, fundi benign, visual field on the left mildly impaired, minimal left facial asymmetry, moves of the palate tongue and shoulders intact, hearing intact Mild increase in tone left upper extremity; gross motor strength is intact, fine motor movements impaired Position sense impairment left upper and left lower extremity, mild left-sided neglect Deep tendon reflexes mildly hyperactive on left, upgoing toe on left Gait mildly unsteady with tendency to walk with very small steps Last 48 Hours of Lab Results: Laboratory Tests 07/25 07/25 07/24 1215 0900 1510 Hematology CBC w Diff MAN DIFF ORDERED WBC (4.8 - 10.8 /CUMM) 6.2 RBC (4.20 - 5.40 /CUMM) 3.51 L Hgb (12.0 - 16.0 G/DL) 8.4 L Hct (37 - 47 %) 26.0 L MCV (81.0 - 99.0 FL) 74.0 L MCH (27.0 - 31.0 PG) 24.1 L RDW (11.5 - 14.5 %) 15.5 H Plt Count (130 - 400 /CUMM) 113 L MPV (7.4 - 10.4 FL) 11.9 H Gran % (42.2 - 75.2 %) 82.6 H Lymphocytes % (20.5 - 51.1 %) 10.8 L Monocytes % (1.7 - 9.3 %) 5.5 Eosinophils % (0 - 5 %) 0.8 Basophils % (0.0 - 2.0 %) 0.3 Absolute Granulocytes (1.4 - 6.5 /CUMM) 5.1 Segmented Neutrophils (42.2 - 75.2 %) 85 H Band Neutrophils (0.0 - 5.0 %) 1 Absolute Lymphocytes (1.2 - 3.4 /CUMM) 0.7 L Lymphocytes (20.5 - 51.1 %) 9 L Monocytes (1.7 - 9.3 %) 3 Absolute Monocytes (0.10 - 0.60 /CUMM) 0.3 Absolute Eosinophils (0.0 - 0.7 /CUMM) 0 Basophils (0.0 - 2.0 %) 2 Absolute Basophils (0.0 - 0.2 /CUMM) 0 Platelet Estimate (ADEQUATE) DECREASED Polychromasia 1+ Hypochromic-Microcytic 2+ Poikilocytosis 2+ Anisocytosis 2+ Microcytic Cells 1+ Ovalocytes 1+ PUBS MCHC (33.0 - 37.0 G/DL) 32.5 L ESR Westergren (0 - 20 MM) 128 H Immunology ISMAEL Titer Pending Anti-Nuclear Antibody Pending ANCA Pending 07/24 07/24 07/24 0616 0616 0350 Chemistry Hemoglobin A1c Pending Iron (37 - 170 ug/dL) 19 L TIBC (265 - 497 ug/dL) 328 Ferritin (11.1 - 264 ng/mL) 25.0 Lactate Dehydrogenase (313 - 618 U/L) 928 H Troponin I (< 0.11 ng/ml) 0.26 *H Hematology Haptoglobin Pending Serology Lyme Disease Antibody (RATIO) 1.92 *H Lyme Ab (Western Blot) Pending Lyme IgG 18 kDa Band Pending Lyme IgG 23 kDa Band Pending Lyme IgG 28 kDa Band Pending Lyme IgG 30 kDa Band Pending Lyme IgG 39 kDa Band Pending Lyme IgG 41 kDa Band Pending Lyme IgG 45 kDa Band Pending Lyme IgG 58 kDa Band Pending Lyme IgG 66 kDa Band Pending Lyme IgG 93 kDa Band Pending Lyme IgM (Western Blot) Pending Lyme IgM 23 kDa Band Pending Lyme IgM 39 kDa Band Pending Lyme IgM 41 kDa Band Pending 07/24 07/23 0350 2315 Chemistry Sodium (137 - 145 mmol/L) 145 Potassium (3.5 - 5.1 mmol/L) 4.1 Chloride (98 - 107 mmol/L) 110 H Carbon Dioxide (22 - 30 mmol/L) 22 Anion Gap (5 - 16) 13 BUN (7 - 17 mg/dL) 34 H Creatinine (0.5 - 1.0 mg/dL) 1.4 H Estimated GFR (>60 ml/min) 39 L BUN/Creatinine Ratio (7 - 25 %) 24.3 Troponin I (< 0.11 ng/ml) 0.33 *H Triglycerides (<150 mg/dL) 100 Cholesterol (<200 MG/DL) 125 LDL Cholesterol, Calc (65 - 129 mg/dL) 67 HDL Cholesterol (40 - 60 mg/dL) 38 L Cholesterol/HDL Ratio (0.00 - 4.23 %) 3 Hematology CBC w Diff MAN DIFF ORDERED WBC (4.8 - 10.8 /CUMM) 5.3 RBC (4.20 - 5.40 /CUMM) 3.18 L Hgb (12.0 - 16.0 G/DL) 7.5 L Hct (37 - 47 %) 23.4 L MCV (81.0 - 99.0 FL) 73.7 L MCH (27.0 - 31.0 PG) 23.5 L RDW (11.5 - 14.5 %) 15.6 H Plt Count (130 - 400 /CUMM) 78 L MPV (7.4 - 10.4 FL) 11.1 H Gran % (42.2 - 75.2 %) 67.6 Lymphocytes % (20.5 - 51.1 %) 22.5 Monocytes % (1.7 - 9.3 %) 7.7 Eosinophils % (0 - 5 %) 1.9 Basophils % (0.0 - 2.0 %) 0.3 Absolute Granulocytes (1.4 - 6.5 /CUMM) 3.6 Segmented Neutrophils (42.2 - 75.2 %) Pending Absolute Lymphocytes (1.2 - 3.4 /CUMM) 1.2 Absolute Monocytes (0.10 - 0.60 /CUMM) 0.4 Absolute Eosinophils (0.0 - 0.7 /CUMM) 0.1 Absolute Basophils (0.0 - 0.2 /CUMM) 0 PUBS MCHC (33.0 - 37.0 G/DL) 31.9 L Retic Count (0.5 - 2.0 %) 2.80 H 07/23 2203 Urines Urine Color (YEL,AMB,STR) YEL Urine Clarity (CLEAR) CLEAR Urine pH (5.0 - 8.0) 6.0 Ur Specific [place] (1.001 - 1.035) >= 1.030 Urine Protein (NEG,<30 MG/DL) 30 H Urine Ketones (NEG) NEG Urine Nitrite (NEG) NEG Urine Bilirubin (NEG) NEG Urine Urobilinogen (0.1 - 1.0 EU/dl) 0.2 Ur Leukocyte Esterase (NEG) NEG Ur Microscopic SEDIMENT EXAMINED Urine RBC (0 - 5 /HPF) FEW H Urine WBC (0 - 2 /HPF) 5-10 H Ur Epithelial Cells (NONE,FEW) MOD H Hyaline Casts (0/LPF) MOD H Granular Casts (NONE /LPF) FEW H Urine Mucus (FEW,NONE) MOD H Urine Hemoglobin (NEG) NEG Urine Glucose (N MG/DL) NEG 07/23 1545 Chemistry Sodium (137 - 145 mmol/L) 144 Potassium (3.5 - 5.1 mmol/L) 4.2 Chloride (98 - 107 mmol/L) 109 H Carbon Dioxide (22 - 30 mmol/L) 18 L Anion Gap (5 - 16) 17 H BUN (7 - 17 mg/dL) 34 H Creatinine (0.5 - 1.0 mg/dL) 1.4 H Estimated GFR (>60 ml/min) 39 L BUN/Creatinine Ratio (7 - 25 %) 24.3 Glucose (65 - 99 mg/dL) 124 H Calcium (8.4 - 10.2 mg/dL) 9.7 Magnesium (1.6 - 2.3 mg/dL) 1.8 Total Bilirubin (0.2 - 1.3 mg/dL) 1.0 AST (14 - 36 U/L) 29 ALT (9 - 52 U/L) 32 Alkaline Phosphatase (<127 U/L) 48 Troponin I (< 0.11 ng/ml) 0.30 *H Total Protein (6.3 - 8.2 g/dL) 7.9 Albumin (3.5 - 5.0 g/dL) 4.4 Globulin (1.9 - 4.2 gm/dL) 3.5 Albumin/Globulin Ratio (1.1 - 2.2 %) 1.3 Free T4 (0.64 - 1.79 ng/dL) 1.73 Total T3 (0.97 - 1.69 ng/mL) 1.50 TSH &T3 &Free T4 Intrp (0.270 - 4.20 uIU/mL) 7.460 H Hematology CBC w Diff MAN DIFF ORDERED WBC (4.8 - 10.8 /CUMM) 14.8 H RBC (4.20 - 5.40 /CUMM) 3.59 L Hgb (12.0 - 16.0 G/DL) 8.7 L Hct (37 - 47 %) 26.5 L MCV (81.0 - 99.0 FL) 73.8 L MCH (27.0 - 31.0 PG) 24.3 L RDW (11.5 - 14.5 %) 15.8 H Plt Count (130 - 400 /CUMM) 78 L MPV (7.4 - 10.4 FL) 10.3 Gran % (42.2 - 75.2 %) 91.7 H Lymphocytes % (20.5 - 51.1 %) 3.8 L Monocytes % (1.7 - 9.3 %) 4.3 Eosinophils % (0 - 5 %) 0.2 Basophils % (0.0 - 2.0 %) 0 L Absolute Granulocytes (1.4 - 6.5 /CUMM) 13.5 H Segmented Neutrophils (42.2 - 75.2 %) 81 H Band Neutrophils (0.0 - 5.0 %) 9 H Absolute Lymphocytes (1.2 - 3.4 /CUMM) 0.6 L Lymphocytes (20.5 - 51.1 %) 5 L Monocytes (1.7 - 9.3 %) 5 Absolute Monocytes (0.10 - 0.60 /CUMM) 0.6 Absolute Eosinophils (0.0 - 0.7 /CUMM) 0 Absolute Basophils (0.0 - 0.2 /CUMM) 0 Platelet Estimate (ADEQUATE) DECREASED Polychromasia 1+ Hypochromic-Microcytic 2+ Anisocytosis 1+ Microcytic Cells 1+ PUBS MCHC (33.0 - 37.0 G/DL) 32.9 L Imaging/Other Studies: CT HEAD IMPRESSION: No acute intracranial pathology. Progressive moderate generalized volume loss relative to the prior available study of 2005. Chronic appearing lacunar infarcts are present within the left thalamus and right cerebellar hemisphere, which have developed in the interim since 2005. Small areas of encephalomalacia and gliosis in the high frontal lobes bilaterally have also developed in the interim since the prior study. U/S IMPRESSION: No hemodynamically significant stenosis in either carotid arteries. MRI: IMPRESSION: - Multiple acute to subacute infarcts within the right occipital lobe, the right periventricular white matter posteriorly, the left middle frontal gyrus, and possibly the left parietal postcentral gyrus. - Chronic infarcts within the right occipital lobe, the left thalamus, the cerebellar hemispheres, and the parietal post central gyri bilaterally. Moderate chronic microangiopathy and global cerebral volume loss that is greatest within the parietal lobes bilaterally. Assessment/Plan Assessment: left sided dysfunction due to CVA, chronic and acute Recommendations: search for embolic source: head of cytogenetics nuclear monitoring technician for possible a. Fib ECHO CTA or MRA intracranial vessels PT/OT ASA/statin unless cardioembolic source found target systolic BP under 140 Consult Acknowledgment - Thank you for your consult request.
--- NOTE | 2016-07-25 17:59 | MRI REPORT ---
EXAMINATION: MR ANGIOGRAPHY HEAD CLINICAL INFORMATION: Weakness left side, ataxia. CVA. COMPARISON: MRI scan of the head earlier 07/25/2016. TECHNIQUE: 3D time of flight MR angiography of the intracranial vasculature was obtained. Source images were reviewed along with MIPs. Angled MIPs and volumetric reconstructions were independently generated at the technologist's workstation. FINDINGS: In the anterior circulation, the distal internal carotid arteries within the neck appear normal. The intracranial internal carotid arteries and their bifurcations appear normal. There is poor arborization of the middle cerebral artery branches in the right sylvian fissure compared to the left. The left middle and bilateral anterior cerebral arteries bilaterally demonstrate normal caliber with no evidence of focal stenosis, aneurysm or vascular malformation. The anterior communicating artery is normal. In the posterior circulation, the right vertebral artery is dominant. The vertebral arteries intradurally have normal caliber. The basilar artery appears normal. The left posterior cerebral artery arises primarily off the anterior circulation which is a normal variant. The P3 segment of the right posterior cerebral artery has thinner caliber compared to the left. IMPRESSION: 1. There is poor arborization of the right middle cerebral artery branches in the sylvian fissure compared to the left, and there is narrower caliber of the P3 segment of the right posterior cerebral artery compared to the left. 2. There is no evidence of aneurysm or vascular malformation.
[2016-07-25 22:41] VITALS: BP 152/80
[2016-07-25 23:45] VITALS: BP 146/90
[2016-07-26 08:10] LABS: ABSOLUTE BASOPHIL COUNT 0 /CUMM (0.0-0.2); ABSOLUTE EOSINOPHIL COUNT 0.1 /CUMM (0.0-0.7); ABSOLUTE LYMPH COUNT 0.9 /CUMM (1.2-3.4); ABSOLUTE MONOCYTE COUNT 0.4 /CUMM (0.10-0.60); BASOPHIL % 0.2 % (0.0-2.0); EOSINOPHIL % 1.8 % (0-5); GRANULOCYTE % 80.6 % (42.2-75.2); HEMATOCRIT 25.4 % (37-47); MEAN CORPUSCULAR HGB 24.3 PG (27.0-31.0); MEAN CORPUSCULAR HGB CONC 32.7 G/DL (33.0-37.0); MEAN CORPUSCULAR VOLUME 74.2 FL (81.0-99.0); MEAN PLATELET VOLUME 11.4 FL (7.4-10.4); PLATELET COUNT 112 /CUMM (130-400); RBC DISTRIBUTION WIDTH 15.8 % (11.5-14.5); RED BLOOD CELL CT 3.43 /CUMM (4.20-5.40); WHITE BLOOD CELL COUNT 7.4 /CUMM (4.8-10.8)
--- NOTE | 2016-07-26 08:13 | PN- Housestaff ---
Subjective Follow-up For: CVA Tele-Events Since Last Visit: Sinus rhythm with rates 79-99 beats/min, No events Subjective: Patient was seen and examined this morning. she offered no compaints, is at bedside. Patient had the physical therapy session, she started to use the walker with some difficulty, shuffling gait but no ataxia today. Patient cooperative but sometimes she had difficulty processing what she has been told. The reported weakness only for the last month and patient never had any previous history of weakness before. She had no past medical history of hospitalization before. No overnight events, vital signs are stable. Review of Systems Constitutional: Denies: see HPI, chills, fever. EENTM: Denies: blurred vision, hearing changes, nasal congestion. Cardiovascular: Denies: chest pain, orthopena, palpitations. Respiratory: Denies: cough, short of breath. Gastrointestinal: Denies: abdominal pain, constipation, diarrhea, nausea, vomiting. Genitourinary: Denies: dysuria, frequency, hematuria. Musculoskeletal: Denies: back pain, joint pain. Skin: Denies: rash. Neurological/Psychological: Denies: anxiety, headache, numbness, paresthesia, tingling, tremors. Hematologic/Endocrine: Denies: bleeding, polyuria. Objective Last 24 Hrs of Vital Signs/I&O Vital Signs Date Time Temp Pulse Resp B/P Pulse O2 O2 Flow FiO2 Ox Delivery Rate 07/26 1603 99.1 93 18 132/78 98 Room Air 07/26 0909 93 142/90 07/26 0828 99.7 93 18 142/90 98 Room Air 07/25 2345 85 146/90 07/25 2241 99.0 80 18 152/80 99 Room Air 07/25 2115 87 152/80 Intake & Output 07/26 1600 07/26 0800 07/26 0000 Intake Total 480 400 480 Output Total 600 400 Balance 480 -200 80 Intake, Oral 480 400 480 Number 1 Bowel Movements Output, Urine 600 400 Physical Exam General Appearance: Alert, Oriented X3, Cooperative, No Acute Distress Skin: No Rashes, No Breakdown, No Significant Lesion HEENT: Atraumatic, PERRLA, EOMI, Mucous Membr. moist/pink Neck: Supple Cardiovascular: Regular Rate, Normal S1, Normal S2, No Murmurs Lungs: Clear to Auscultation, Normal Air Movement Abdomen: Normal Bowel Sounds, Soft, No Tenderness Neurological: Normal Speech, Strength at 5/5 X4 Ext, Normal Tone, Sensation Intact, Cranial Nerves 3-12 NL, Reflexes 2+, left hand dismeteria right hand asterognosis normal visual field Extremities: No Clubbing, No Cyanosis, No Edema, Normal Pulses Assessment/Plan Assessment: 56-year-old lady with a PMH of chronic headaches (??migraines) managed with amitriptyline 10 mg daily who presents with complaints of two-week duration progressive weakness, imbalance, confusion and new onset palpitations. VS on admission: BP 110/75, HR 170, RR 20, SPO2 99% on RA, T 99.6 Labs: WBC 14.8, 90% bandemia. H&H 8.7/26.5, platelets 78, chloride 109, bicarbonate 18, BUN/CR 34/1.4 Troponin: 0.30 TSH: 7.[address] as indicated above Problem list: 1. AMS: Infectious etiology versus progressive vascular insufficiency 2. Narrow complex tachycardia 3. Elevated troponins 4. SIRS criteria 5. Anemia 6. Thrombocytopenia 7. Acute kidney injury 8. Elevated TSH Plan: 1. CVA * CT head without contrast 07/23 No acute intracranial pathology. Progressive moderate generalized volume loss relative to the prior available study of 2005. Chronic appearing lacunar infarcts are present within the left thalamus and right cerebellar hemisphere, which have developed in the interim since 2005. Small areas of encephalomalacia and gliosis in the high frontal lobes bilaterally have also developed in the interim since the prior study. * MRI brain without YESENIA - Multiple acute to subacute infarcts within the right occipital lobe, the right periventricular white matter posteriorly, the left middle frontal gyrus, and possibly the left parietal postcentral gyrus. - Chronic infarcts within the right occipital lobe, the left thalamus, the cerebellar hemispheres, and the parietal post central gyri bilaterally. Moderate chronic microangiopathy and global cerebral volume loss that is greatest within the parietal lobes bilaterally. * Carotid Doppler ultrasound 07/24 No hemodynamically significant stenosis in either carotid arteries. Normal antegrade flow seen in both vertebral arteries. * Echocardiogram with bubble study to exclude PFO Hyperdynamic left ventricular systolic function. Probably severe posteriorly directed Mitral regurgitation .Increased echogenicity noted on the Anterior Mitral leaflet. Torn chord,vegetation may be considered. Would suggest a JORJE to better delineate Mitral Valve pathology and evaluate for cardioembolic source as bubble study was suboptimal. Moderate Pulmonary hypertension. * Patient will be nothing by mouth for JORJE tomorrow morning * Neurology consultation was placed Dr. Shelby * Recommendation for MRA * Keep systolic blood pressure less than 140 * Continue Neurochecks Q2hrs * Continue atorvastatin 40 mg daily * Continue aspirin 81 mg daily * Lipid panel within normal limits * Orthostatic measurement on 07/24 is negative * Lyme antibody positive, titer still pending * ESR 128 high * ISMAEL, ANCA pending * Infectious cause such as HIV, hepatitis are negative * blood Cx pending, urine cultures no growth to date 2. Narrow complex tachycardia * Unclear etiology of her palpitations at this time. 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 Elevated troponins * Troponin is trending down. Likely secondary to prolonged narrow complex tachycardia. However, in the setting of two-week duration generalized weakness, fatigue, difficulty w/ ambulation, will trend troponins and EKG (2200, 0400) 4. Pancytopenia * Unclear etiology at this time * Hematology consultation was obtained * Could be nutritional, infection, inflammatory * Peripheral smear was ordered, showed anisocytosis and poikilocytosis but no schistocytes * Lactate dehydrogenase is elevated but no elevated bilirubin * Lupus workup was ordered * Serum iron level is 19, TIBC 328, ferretin 25 * Start ferritin sulfate 325 3 times a day * Guaiac stools negative * Patient has microcytic anemia hematocrit is 74 * Continue hold amitriptaline 5. Acute kidney injury * Patient received 1 bolus normal saline * BUN/creatinine 28/1.1 6. Elevated TSH * Synthroid 25 mg daily * TSH 7.46, free T4 1.73 7. Diet: * Heart healthy 8. DVT prophylaxis * ALPs 9. CODE STATUS * Full code Consultation cardiology, neurology, hematology, PT, OT Problem List: 1. CVA (cerebral vascular accident) 2. REN (acute kidney injury) 3. Thrombocytopenia 4. Anemia Pain Ratin Pain Location: n/a Pain Goal: Pain 4 or less Pain Plan: mild pain pathway Tomorrow's Labs & Rationales: cbc, cmp Consulting Request: Consulting Specialty: Neurology
[2016-07-26 08:28] VITALS: BP 142/90
--- NOTE | 2016-07-26 09:28 | PN- Att Addend ---
Attending Addendum Attending Brief Note Patient has no complaints General Appearance: Alert, No Acute Distress Skin: Grossly normal HEENT: PEERLA Neck: Supple, No JVD Cardiovascular: Regular Rate, Normal S1, Normal S2, No Murmurs Lungs: Clear to Auscultation, Normal Air Movement Abdomen: Normal Bowel Sounds, Soft, No Tenderness Neurological: Left-sided weakness both upper and lower extremity, exaggerated reflexes all 4 extremities, upgoing plantar left-sided, left hemisphere visual field defect Extremities: No Clubbing, No Cyanosis, No Edema Vascular: Normal Pulses Assessment Left-sided CVA involving right thalamus and left cerebellar. MRA suggests narrowing of posterior cerebral artery raising concerns for possible underlying vasculitis and lupus. Currently workup for vasculitis and lupus is pending. Carotid ultrasound is negative. At this time echogram is pending. Plan Continue aspirin and statin Lupus workup Iron supplement levothyroxine 25 g once daily Follow echocardiogram Continue to monitor patient on telemetry Hold amitriptyline DVT prophylaxis PT and OT evaluation Speech evaluation Current Medications Sig/Cathi Start time Last Medication Dose Route Stop Time Status Admin Acetaminophen 650 MG Q6P PRN 07/23 181 AC PO Aspirin 81 MG DAILY 07/24 1200 AC 07/26 PO 0909 Atorvastatin Calcium 40 MG 1700 07/24 1700 AC 07/25 PO 1747 Ferrous Sulfate 325 MG TID 07/25 2200 AC 07/26 PO 0909 Levothyroxine Sodium 0.025 MG DAILY AC 07/24 1457 AC 07/26 PO 0532 Metoprolol Succinate 50 MG DAILY 07/26 1000 AC 07/26 PO 0909 Metoprolol Succinate 25 MG DAILY 07/24 1330 DC 07/25 PO 1157 Metoprolol Tartrate 25 MG ONCE ONE 07/25 2100 DC 07/25 PO 07/25 2101 2115 Oxycodone/ 1 TAB Q6P PRN 07/23 181 AC Acetaminophen PO Oxycodone/ 2 TAB Q6P PRN 07/23 1815 AC Acetaminophen PO Laboratory Tests 07/26 07/25 0614 1215 Chemistry Sodium (137 - 145 mmol/L) 143 Potassium (3.5 - 5.1 mmol/L) 4.0 Chloride (98 - 107 mmol/L) 107 Carbon Dioxide (22 - 30 mmol/L) 22 Anion Gap (5 - 16) 13 BUN (7 - 17 mg/dL) 28 H Creatinine (0.5 - 1.0 mg/dL) 1.1 H Estimated GFR (>60 ml/min) 51 L BUN/Creatinine Ratio (7 - 25 %) 25.5 H Hematology CBC w Diff MAN DIFF ORDERED MAN DIFF ORDERED WBC (4.8 - 10.8 /CUMM) 7.4 6.2 RBC (4.20 - 5.40 /CUMM) 3.43 L 3.51 L Hgb (12.0 - 16.0 G/DL) 8.3 L 8.4 L Hct (37 - 47 %) 25.4 L 26.0 L MCV (81.0 - 99.0 FL) 74.2 L 74.0 L MCH (27.0 - 31.0 PG) 24.3 L 24.1 L RDW (11.5 - 14.5 %) 15.8 H 15.5 H Plt Count (130 - 400 /CUMM) 112 L 113 L MPV (7.4 - 10.4 FL) 11.4 H 11.9 H Gran % (42.2 - 75.2 %) 80.6 H 82.6 H Lymphocytes % (20.5 - 51.1 %) 12.7 L 10.8 L Monocytes % (1.7 - 9.3 %) 4.7 5.5 Eosinophils % (0 - 5 %) 1.8 0.8 Basophils % (0.0 - 2.0 %) 0.2 0.3 Absolute Granulocytes (1.4 - 6.5 /CUMM) 6.0 5.1 Segmented Neutrophils (42.2 - 75.2 %) 72 85 H Band Neutrophils (0.0 - 5.0 %) 7 H 1 Absolute Lymphocytes (1.2 - 3.4 /CUMM) 0.9 L 0.7 L Lymphocytes (20.5 - 51.1 %) 14 L 9 L Monocytes (1.7 - 9.3 %) 5 3 Absolute Monocytes (0.10 - 0.60 /CUMM) 0.4 0.3 Eosinophils (0 - 5.0 %) 2 Absolute Eosinophils (0.0 - 0.7 /CUMM) 0.1 0 Basophils (0.0 - 2.0 %) 2 Absolute Basophils (0.0 - 0.2 /CUMM) 0 0 Platelet Estimate (ADEQUATE) DECREASED DECREASED Polychromasia 1+ 1+ Hypochromic-Microcytic 2+ 2+ Poikilocytosis 2+ 2+ Anisocytosis 2+ 2+ Microcytic Cells 1+ Ovalocytes 2+ 1+ PUBS MCHC (33.0 - 37.0 G/DL) 32.7 L 32.5 L Immunology ISMAEL Titer Pending Anti-Nuclear Antibody Pending Serology Hepatitis A IgM Ab (NONREACTIVE) NONREACTIVE Hep Bs Antigen (NONREACTIVE) NONREACTIVE Hep B Core IgM Ab Conf (NONREACTIVE) NONREACTIVE Hepatitis C Antibody (NONREACTIVE) NONREACTIVE HIV 1&2 Ab Western Blot (NONREACTIVE) NONREACTIVE Vital Signs Date Time Temp Pulse Resp B/P Pulse O2 O2 Flow FiO2 Ox Delivery Rate 07/26 0909 93 142/90 07/26 0828 99.7 93 18 142/90 98 Room Air 07/25 2345 85 146/90 07/25 2241 99.0 80 18 152/80 99 Room Air 07/25 2115 87 152/80 07/25 1528 97.5 94 18 138/78 98 Room Air 07/25 1157 96 162/94
--- NOTE | 2016-07-26 10:37 | PN- Hematology ---
Subjective Subjective: She feels about the same as yesterday. She denies any palpitation, chest pain, shortness of breath, or other symptoms. Review of Systems Constitutional: Denies: chills, fever. EENTM: Denies: blurred vision, double vision. Cardiovascular: Denies: chest pain. Respiratory: Denies: short of breath. Gastrointestinal: Denies: abdominal pain. Genitourinary: Denies: hematuria. Musculoskeletal: Denies: back pain. Skin: Denies: rash. Neurological/Psychological: Denies: anxiety, confusion. Hematologic/Endocrine: Denies: bleeding. All Other Systems: Reviewed and Negative Objective Vital Signs and I&Os Vital Signs Date Time Temp Pulse Resp B/P Pulse O2 O2 Flow FiO2 Ox Delivery Rate 07/26 0909 93 142/90 07/26 0828 99.7 93 18 142/90 98 Room Air 07/25 2345 85 146/90 07/25 2241 99.0 80 18 152/80 99 Room Air 07/25 2115 87 152/80 07/25 1528 97.5 94 18 138/78 98 Room Air 07/25 1157 96 162/94 Intake & Output 07/26 1600 07/26 0800 07/26 0000 07/25 1600 07/25 0800 07/25 0000 Intake Total 400 480 480 150 780 Output Total 600 400 400 300 Balance -200 80 480 -250 480 Intake, IV 300 Intake, Oral 400 480 480 150 480 Number 1 0 Bowel Movements Output, Urine 600 400 400 300 Physical Exam General Appearance: alert, awake, comfortable Head: atraumatic Ears, Nose, Throat: normal pharynx Respiratory: normal breath sounds, chest non-tender Cardiovascular: regular rate/rhythm Abdomen: normal bowel sounds, soft, non-tender Extremities: normal inspection Neurologic/Psychiatric: alert, oriented x 3 Current Medications: Current Medications Sig/Cathi Start time Last Medication Dose Route Stop Time Status Admin Acetaminophen 650 MG Q6P PRN 07/23 1815 AC PO Aspirin 81 MG DAILY 07/24 1200 AC 07/26 PO 0909 Atorvastatin Calcium 40 MG 1700 07/24 1700 AC 07/25 PO 1747 Ferrous Sulfate 325 MG TID 07/25 2200 AC 07/26 PO 0909 Levothyroxine Sodium 0.025 MG DAILY AC 07/24 1457 AC 07/26 PO 0532 Metoprolol Succinate 50 MG DAILY 07/26 1000 AC 07/26 PO 0909 Metoprolol Succinate 25 MG DAILY 07/24 1330 DC 07/25 PO 1157 Metoprolol Tartrate 25 MG ONCE ONE 07/25 2100 DC 07/25 PO 07/25 2100 211 Oxycodone/ 1 TAB Q6P PRN 07/23 181 AC Acetaminophen PO Oxycodone/ 2 TAB Q6P PRN 07/23 181 AC Acetaminophen PO Results Last 24 Hours of Lab Results: Laboratory Tests 07/26 07/25 0614 1215 Chemistry Sodium (137 - 145 mmol/L) 143 Potassium (3.5 - 5.1 mmol/L) 4.0 Chloride (98 - 107 mmol/L) 107 Carbon Dioxide (22 - 30 mmol/L) 22 Anion Gap (5 - 16) 13 BUN (7 - 17 mg/dL) 28 H Creatinine (0.5 - 1.0 mg/dL) 1.1 H Estimated GFR (>60 ml/min) 51 L BUN/Creatinine Ratio (7 - 25 %) 25.5 H Hematology CBC w Diff MAN DIFF ORDERED MAN DIFF ORDERED WBC (4.8 - 10.8 /CUMM) 7.4 6.2 RBC (4.20 - 5.40 /CUMM) 3.43 L 3.51 L Hgb (12.0 - 16.0 G/DL) 8.3 L 8.4 L Hct (37 - 47 %) 25.4 L 26.0 L MCV (81.0 - 99.0 FL) 74.2 L 74.0 L MCH (27.0 - 31.0 PG) 24.3 L 24.1 L RDW (11.5 - 14.5 %) 15.8 H 15.5 H Plt Count (130 - 400 /CUMM) 112 L 113 L MPV (7.4 - 10.4 FL) 11.4 H 11.9 H Gran % (42.2 - 75.2 %) 80.6 H 82.6 H Lymphocytes % (20.5 - 51.1 %) 12.7 L 10.8 L Monocytes % (1.7 - 9.3 %) 4.7 5.5 Eosinophils % (0 - 5 %) 1.8 0.8 Basophils % (0.0 - 2.0 %) 0.2 0.3 Absolute Granulocytes (1.4 - 6.5 /CUMM) 6.0 5.1 Segmented Neutrophils (42.2 - 75.2 %) 72 85 H Band Neutrophils (0.0 - 5.0 %) 7 H 1 Absolute Lymphocytes (1.2 - 3.4 /CUMM) 0.9 L 0.7 L Lymphocytes (20.5 - 51.1 %) 14 L 9 L Monocytes (1.7 - 9.3 %) 5 3 Absolute Monocytes (0.10 - 0.60 /CUMM) 0.4 0.3 Eosinophils (0 - 5.0 %) 2 Absolute Eosinophils (0.0 - 0.7 /CUMM) 0.1 0 Basophils (0.0 - 2.0 %) 2 Absolute Basophils (0.0 - 0.2 /CUMM) 0 0 Platelet Estimate (ADEQUATE) DECREASED DECREASED Polychromasia 1+ 1+ Hypochromic-Microcytic 2+ 2+ Poikilocytosis 2+ 2+ Anisocytosis 2+ 2+ Microcytic Cells 1+ Ovalocytes 2+ 1+ PUBS MCHC (33.0 - 37.0 G/DL) 32.7 L 32.5 L Immunology ISMAEL Titer Pending Anti-Nuclear Antibody Pending Serology Hepatitis A IgM Ab (NONREACTIVE) NONREACTIVE Hep Bs Antigen (NONREACTIVE) NONREACTIVE Hep B Core IgM Ab Conf (NONREACTIVE) NONREACTIVE Hepatitis C Antibody (NONREACTIVE) NONREACTIVE HIV 1&2 Ab Western Blot (NONREACTIVE) NONREACTIVE Recent Imaging Studies: MRI/MRA Head/neck 07/25/2016: 1. There is poor arborization of the right middle cerebral artery branches in the sylvian fissure compared to the left, and there is narrower caliber of the P3 segment of the right posterior cerebral artery compared to the left. 2. There is no evidence of aneurysm or vascular malformation. MRI Brain 07/25/2016: 1. Multiple acute to subacute infarcts within the right occipital lobe, the right periventricular white matter posteriorly, the left middle frontal gyrus, and possibly the left parietal postcentral gyrus. 2. Chronic infarcts within the right occipital lobe, the left thalamus, the cerebellar hemispheres, and the parietal post central gyri bilaterally. Moderate chronic microangiopathy and global cerebral volume loss that is greatest within the parietal lobes bilaterally. Assessment/Plan Assessment/Recommendations: Ms. Petty is a 56-year-old female with chronic headaches and hypertension presents to the hospital with palpitation, confusion, weakness, and anemia with thrombocytopenia. Blood work on admission demonstrated hgb of 8.7 and platelet of 78,000. This is 8.4 and 112,000 today. Her anemia is microcytic with MCV of 73-74. Reticulocyte is lower than expected for her degree of anemia. Review of the smear demonstrated anisocytosis and few eliptocytes. Serum iron is low. TIBC and ferritin is normal. Folate is normal. MCV is low. MCH is low. RDW is elevated. This is likely related to iron deficiency and chronic disease. Amitriptyline is stopped. She is not on any other medications. ESR is elevated which may be a sign of inflammatory disease. Vasculitis work up may be reasonable. Other rare causes include PNH and MPN. Given the lower iron level, age, and no previous colonoscopy, she should have it evaluated. Occult blood evaluation for the stool is pending. She can be started on oral iron afterward. Recommendations: 1. Obtain occult blood testing on stool 2. Ferrous sulfate 325 mg PO TID, if possible start after stool collection 3. GI evaluation for colonoscopy: potential can be done as outpatient 4. Evaluate for vasculitis and inflammatory disease pending 5. Follow up echocardiogram Please call [phone] with any questions or concerns Problem List: 1. Thrombocytopenia 2. Anemia 3. REN (acute kidney injury) 4. CVA (cerebral vascular accident)
--- NOTE | 2016-07-26 11:01 | PN- Cardiology ---
Subjective Subjective: Patient feels well. She denies chest pain or shortness of breath. Review of Systems: Eyes no blurred or double vision Ears no deafness or ringing Nose and throat no recurrent sinusitis Lungs per history of present illness Heart per history of present illness Abdomen no nausea vomiting Musculoskeletal occasional muscle and joint pains Psych no anxiety or depression Neuro without recurrent headache or seizures Endocrine no heat or cold intolerance Objective Vital Signs and I&Os Vital Signs Date Time Temp Pulse Resp B/P Pulse O2 O2 Flow FiO2 Ox Delivery Rate 07/26 0909 93 142/90 07/26 0828 99.7 93 18 142/90 98 Room Air 07/25 2345 85 146/90 07/25 2241 99.0 80 18 152/80 99 Room Air 07/25 2115 87 152/80 07/25 1528 97.5 94 18 138/78 98 Room Air 07/25 1157 96 162/94 Intake & Output 07/26 1600 07/26 0800 07/26 0000 07/25 1600 07/25 0800 07/25 0000 Intake Total 400 480 480 150 780 Output Total 600 400 400 300 Balance -200 80 480 -250 480 Intake, IV 300 Intake, Oral 400 480 480 150 480 Number 1 0 Bowel Movements Output, Urine 600 400 400 300 Physical Exam: Patient is a well-developed well-nourished female appearing in no acute distress HEENT is unremarkable Neck is supple there is no JVD Lungs are clear Heart regular rhythm S1 and S2 are normal no murmurs gallops or rubs Abdomen bowel sounds positive Extremities without edema Current Medications: Current Medications Sig/Cathi Start time Last Medication Dose Route Stop Time Status Admin Acetaminophen 650 MG Q6P PRN 07/23 1815 AC PO Aspirin 81 MG DAILY 07/24 1200 AC 07/26 PO 0909 Atorvastatin Calcium 40 MG 1700 07/24 1700 AC 07/25 PO 1747 Ferrous Sulfate 325 MG TID 07/25 2200 AC 07/26 PO 0909 Levothyroxine Sodium 0.025 MG DAILY AC 07/24 1457 AC 07/26 PO 0532 Metoprolol Succinate 50 MG DAILY 07/26 1000 AC 07/26 PO 0909 Metoprolol Succinate 25 MG DAILY 07/24 1330 DC 07/25 PO 1157 Metoprolol Tartrate 25 MG ONCE ONE 07/25 2100 DC 07/25 PO 07/25 2101 2115 Oxycodone/ 1 TAB Q6P PRN 07/23 1815 AC Acetaminophen PO Oxycodone/ 2 TAB Q6P PRN 07/23 1815 AC Acetaminophen PO Results Last 48 Hrs of Labs/Mics: Laboratory Tests 07/26/16 0614: Anion Gap 13, Estimated GFR 51 L, BUN/Creatinine Ratio 25.5 H, CBC w Diff MAN DIFF ORDERED, RBC 3.43 L, MCV 74.2 L, MCH 24.3 L, RDW 15.8 H, MPV 11.4 H, Gran % 80.6 H, Lymphocytes % 12.7 L, Monocytes % 4.7, Eosinophils % 1.8, Basophils % 0.2, Absolute Granulocytes 6.0, Segmented Neutrophils 72, Band Neutrophils 7 H, Absolute Lymphocytes 0.9 L, Lymphocytes 14 L, Monocytes 5, Absolute Monocytes 0.4, Eosinophils 2, Absolute Eosinophils 0.1, Absolute Basophils 0, Platelet Estimate DECREASED, Polychromasia 1+, Hypochromic- Microcytic 2+, Poikilocytosis 2+, Anisocytosis 2+, Ovalocytes 2+, PUBS MCHC 32.7 L, Hepatitis A IgM Ab NONREACTIVE, Hep Bs Antigen NONREACTIVE, Hep B Core IgM Ab Conf NONREACTIVE, Hepatitis C Antibody NONREACTIVE, HIV 1&2 Ab Western Blot NONREACTIVE 07/25/16 1215: CBC w Diff MAN DIFF ORDERED, RBC 3.51 L, MCV 74.0 L, MCH 24.1 L, RDW 15.5 H, MPV 11.9 H, Gran % 82.6 H, Lymphocytes % 10.8 L, Monocytes % 5.5, Eosinophils % 0.8, Basophils % 0.3, Absolute Granulocytes 5.1, Segmented Neutrophils 85 H, Band Neutrophils 1, Absolute Lymphocytes 0.7 L, Lymphocytes 9 L, Monocytes 3, Absolute Monocytes 0.3, Absolute Eosinophils 0, Basophils 2, Absolute Basophils 0, Platelet Estimate DECREASED, Polychromasia 1+, Hypochromic-Microcytic 2+, Poikilocytosis 2+, Anisocytosis 2+, Microcytic Cells 1+, Ovalocytes 1+, PUBS MCHC 32.5 L, ISMAEL Titer Pending, Anti-Nuclear Antibody Pending 07/25/16 0900: ANCA Pending 07/24/16 1510: ESR Westergren 128 H Telemetry personally reviewed sinus rhythm Assessment/Plan Assessment/Plan 1. Narrow complex tachycardia terminated with adenosine, consistent with AVNRT 2. Recent neurologic symptoms with abnormal CT, concern for subacute CVA? 3. History of migraine headache 4. Anemia/thrombocytopenia of unclear etiology 5. Mild renal insufficiency 6. Elevated troponin with flat troponin curve consistent with demand ischemia from the SVT 7. Subclinical hypothyroidism Recommendations 1. Continue current medications 2. Plan will eventually be to follow-up with EP as an outpatient. Patient may benefit from a Linq implantation 3. Echocardiogram with bubble study is pending Continue telemetry? Yes
[2016-07-26 16:03] VITALS: BP 132/78
--- NOTE | 2016-07-26 17:22 | ECHOCARDIOGRAM REPORT ---
LM HINKLE Age: 56 : 1960 Gender: F Exam Date: 07/26/2016 09:47 Exam Location: [facility] Ht (in): 65 Wt (lb): 136 BSA: 1.69 BP: 142 / 90 Ordering Physician: ALEYDA SCHREIBER MD Referring Physician: ALEYDA SCHREIBER MD Technologist: Clay Thomas [facility] Room Number: 189-2 Indications: STROKE Rhythm: Sinus Technical Quality: Fair FINDINGS Left Ventricle Normal global left ventricular size, wall thickness, systolic function with no obvious regional wall motion abnormalities. Normal left ventricular ejection fraction estimated at 65-70%. Hyperdynamic left ventricular systolic function. Right Ventricle Normal right ventricular size and function. Right Atrium Normal right atrial size. Left Atrium Left atrial size at the upper limits of normal. Mitral Valve Mitral valve thickened. Increased echogenicity noted on the Anterior Mitral Leaflet. Ruptured chord may be suggested. Probably severe posteriorly directed Mitral regurgitation,suggesting Anterior Leaflet pathology. Aortic Valve Aortic valve is normal in structure and function. Tricuspid Valve Tricuspid valve is normal in structure and function. Mild-to- moderate tricuspid regurgitation. Right ventricular systolic pressure estimated to be elevated at 44 mmHg. Pulmonic Valve Pulmonic valve not well visualized, grossly normal. Pericardium Small pericardial effusion. Great Vessels Normal size aortic root. CONCLUSIONS Hyperdynamic left ventricular systolic function. Probably severe posteriorly directed Mitral regurgitation .Increased echogenicity noted on the Anterior Mitral leaflet. Torn chord,vegetation may be considered. Would suggest a JORJE to better delineate Mitral Valve pathology and evaluate for cardioembolic source as bubble study was suboptimal. Moderate Pulmonary hypertension. Rubio Gonzales M.D. (Electronically Signed) Final Date: 26 July 2016 17:22 MEASUREMENTS (Male / Female) Normal Values 2D ECHO LV Diastolic Diameter PLAX 4.2 cm 4.2 - 5.9 / 3.9 - 5.3 cm LV Systolic Diameter PLAX 2.6 cm 2.1 - 4.0 cm LV Fractional Shortening PLAX 38.1 % 25 - 46 % LV Ejection Fraction 2D Teich 68.7 % IVS Diastolic Thickness 1.0 cm LVPW Diastolic Thickness 1.0 cm LV Relative Wall Thickness 0.5 LVOT Diameter 1.9 cm Aortic Root Diameter 2.7 cm LA Systolic Diameter LX 3.7 cm 3.0 - 4.0 / 2.7 - 3.8 cm Ascending Aorta Diameter 2.6 cm DOPPLER AV Peak Velocity 169.0 cm/s AV Peak Gradient 11.4 mmHg AV Mean Velocity 117.0 cm/s AV Mean Gradient 7.0 mmHg AV Velocity Time Integral 34.1 cm LVOT Peak Velocity 98.7 cm/s LVOT Peak Gradient 3.9 mmHg LVOT Mean Velocity 60.9 cm/s LVOT Mean Gradient 2.0 mmHg LVOT Velocity Time Integral 18.9 cm LVOT Stroke Volume 53.6 cm AV Area Cont Eq vti 1.6 cm AV Area Cont Eq pk 1.7 cm MV Peak Velocity 209.0 cm/s MV Peak Gradient 17.5 mmHg MV Mean Velocity 143.0 cm/s MV Mean Gradient 9.0 mmHg Mitral E Point Velocity 191.0 cm/s Mitral A Point Velocity 194.0 cm/s Mitral E to A Ratio 1.0 MV PHT Velocity 206.0 cm/s MV Deceleration [place] 521.0 cm/s MV Pressure Half Time 118.6 ms MV Area PHT 1.9 cm MV Deceleration Time 349.0 ms MR Peak Velocity 568.5 cm/s MR Peak Gradient 129.3 mmHg TR Peak Velocity 315.0 cm/s TR Peak Gradient 39.7 mmHg Right Atrial Pressure 5.0 mmHg Pulmonary Artery Systolic Pressu 44.7 mmHg Right Ventricular Systolic Press 44.7 mmHg PV Peak Velocity 86.9 cm/s PV Peak Gradient 3.0 mmHg PV Mean Velocity 62.6 cm/s PV Mean Gradient 2.0 mmHg PV Velocity Time Integral 19.5 cm LV E' Lateral Velocity 6.5 cm/s Mitral E to LV E' Lateral Ratio 29.2 LV E' Septal Velocity 5.4 cm/s Mitral E to LV E' Septal Ratio 35.6
[2016-07-27] VITALS: BP 142/80
--- NOTE | 2016-07-27 07:30 | Discharge Summary ---
See Addendum Visit Information Visit Dates Admission Date: 07/23/16 Discharge Date: 07/31/2016 Hospital Course Course Attending Physician: YAYO ONEAL MD Primary Care Physician: MARIA ELENA RODRIGUEZ MD Consulting Request: Consulting Specialty: Neurology Consulting Physician: [facility] Course: is a 56-year-old female with a reported history of migraine headaches who presents to [facility] with a chief complaint of moderate intensity palpitations two-week duration progressive weakness, imbalance, confusion. Palpitation started suddenly while at rest. Symptoms were not associated with significant chest pain but she did the notice some associated dyspnea and dizziness. She denies any prior episodes of this severity but does note some low -level shorter duration palpitations in the past. Information obtained from the patient's : Patient was at her baseline until 2 weeks ago when he noticed her exhibiting generalized weakness, sluggishness in her movements, slow shuffling gait with imbalance. Symptoms have progressed during this time with intermittent episodes of near falls. Addtionally she has exhibited an inability to control herself when attempting to sit down resulting in falling back into her chair on mutliple occasions.She denies a history of syncope. She has apparently been more off balance in recent weeks. No exertional chest pain or dyspnea. Denies fever, diarrhea, decreased appetite, bleeding, or syncope. There was some concern by her family that she had a transient facial droop. She denies associated dysarthria. VS on admission: BP 110/75, HR 170, RR 20, SPO2 99% on RA, T 99.6 Labs: WBC 14.8, 90% bandemia. H&H 8.7/26.5, platelets 78, chloride 109, bicarbonate 18, BUN/CR 34/1.4 Troponin: 0.30 TSH: 7.[address] as indicated above MRI: - Multiple acute to subacute infarcts within the right occipital lobe, the right periventricular white matter posteriorly, the left middle frontal gyrus, and possibly the left parietal postcentral gyrus. - Chronic infarcts within the right occipital lobe, the left thalamus, the cerebellar hemispheres, and the parietal post central gyri bilaterally. Moderate chronic microangiopathy and global cerebral volume loss that is greatest within the parietal lobes bilaterally. Carotid doppler: No hemodynamically significant stenosis in either carotid arteries. Normal antegrade flow seen in both vertebral arteries. EKG: show a narrow complex tachycardia at 166 bpm. Subsequent ECG shows sinus tachycardia. PT/OT evaluatuion was obtained, they worked with the patient throughout hospitalization. We started ASA/ Statin. Cardiology and neurology consult was obtained. We trended troponin until t's peaked at 0.26. 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 Patient started on low dose B-nelly which then increase to Toprol XL 50mg daily. The elevated troponins are consistent with demand ischemia. We have started her on daily beta nelly and she may be a candidate for SVT ablation in the future. We obtained a transthoracic echocardiogram which shoews: Hyperdynamic left ventricular systolic function. Probably severe posteriorly directed Mitral regurgitation. Moderate Pulmonary hypertension. Increased echogenicity noted on the Anterior Mitral leaflet. Torn chord,vegetation may be considered.JORJE was obtained to better delineate Mitral Valve pathology and evaluate for cardioembolic source which shows: Per adhesive bonding machine operator: Given the patient's finding of supraventricular tachycardia, consideration for degradation and atrial fibrillation must as well be given. If an ablation for AVNRT is not performed, consideration for an implantation of a Linq device (may be done as an outpatient) will be given Patient was evaluated by neurologist who recommended MRA: which showed: 1. There is poor arborization of the right middle cerebral artery branches in the sylvian fissure compared to the left, and there is narrower caliber of the P3 segment of the right posterior cerebral artery compared to the left. 2. There is no evidence of aneurysm or vascular malformation. Hematology consult was obtained for evaluation of JAYESH and thrombocytopenia, patient was seen by who recommended2. Ferrous sulfate 325 mg PO TID, GI evaluation for colonoscopy: which can be done as outpatient, Evaluate for vasculitis and inflammatory disease, and to hold amitriptyline. Complications: Non Allergies: Coded Allergies: No Known Allergies (09/05/16) Disposition Summary Disposition Principal Diagnosis: 1. Narrow complex tachycardia terminated with adenosine, consistent with AVNRT 2. Recent neurologic symptoms with abnormal CT, MRI, MRA, concern for subacute CVA? 3. History of migraine headache 4. Anemia/thrombocytopenia of unclear etiology 5. Mild renal insufficiency 6. Elevated troponin with flat troponin curve consistent with demand ischemia from the SVT 7. Subclinical hypothyroidism Additional Diagnosis: As above Discharge Disposition: STR Discharge Instructions General Discharge Information Code Status: Full Code Patient's Diet: Heart healthy diet Patient's Activity: As tolerated Follow-Up Instructions/Appts: -Follow up with PCP in 1 week after discharge -Follow up with your adhesive bonding machine operator in 1 week after discharge -Follow up with your neurologist in 1 week after discharge -Take your medications as prescribed. Medications at Discharge Discharge Medications: Stop taking the following medications: Amitriptyline HCl (Amitriptyline HCl) 10 MG TABLET ORAL Every night Qty = 90 Start taking the following new medications: Atorvastatin Calcium (Atorvastatin Calcium) 40 MG TABLET 40 Milligram ORAL 5 PM Qty = 1 No Refills Metoprolol Succ XL (Toprol Xl) 50 MG TAB 50 Milligram ORAL DAILY Qty = 1 No Refills Copies To: YAYO ONEAL MD Attending MD Review Statement Other Findings: Patient of Dr Emily Oneal No Refills Levothyroxine Sodium (Synthroid) 25 MCG TABLET 0.025 Milligram ORAL DAILY BEFORE BREAKFAST Qty = 1 No Refills Copies To: YAYO ONEAL MD
[2016-07-27 08:00] VITALS: BP 134/78
[2016-07-27 08:10] LABS: ABSOLUTE BASOPHIL COUNT 0 /CUMM (0.0-0.2); ABSOLUTE EOSINOPHIL COUNT 0.1 /CUMM (0.0-0.7); ABSOLUTE GRANULOCYTE CT 4.3 /CUMM (1.4-6.5); ABSOLUTE MONOCYTE COUNT 0.4 /CUMM (0.10-0.60); BASOPHIL % 0.6 % (0.0-2.0); EOSINOPHIL % 2.2 % (0-5); HEMATOCRIT 23.6 % (37-47); MEAN CORPUSCULAR HGB 24.1 PG (27.0-31.0); MEAN CORPUSCULAR HGB CONC 32.6 G/DL (33.0-37.0); MEAN CORPUSCULAR VOLUME 73.9 FL (81.0-99.0); MEAN PLATELET VOLUME 11.2 FL (7.4-10.4); PLATELET COUNT 123 /CUMM (130-400); WHITE BLOOD CELL COUNT 5.9 /CUMM (4.8-10.8)
--- NOTE | 2016-07-27 08:47 | PN- Hematology ---
Subjective Subjective: She feels well without any complaints. She has no new neurological changes. Review of Systems: Constitutional: Denies: chills, fever. EENTM: Denies: blurred vision, double vision. Cardiovascular: Denies: chest pain. Respiratory: Denies: short of breath. Gastrointestinal: Denies: abdominal pain. Genitourinary: Denies: hematuria. Skin: Denies: rash. Neurological/Psychological: Denies: anxiety, confusion. All Other Systems: Reviewed and Negative Objective Vital Signs and I&Os Vital Signs Date Time Temp Pulse Resp B/P Pulse O2 O2 Flow FiO2 Ox Delivery Rate 07/27 0000 98.7 90 18 142/80 98 Room Air 07/26 1603 99.1 93 18 132/78 98 Room Air 07/26 0909 93 142/90 07/26 0828 99.7 93 18 142/90 98 Room Air Intake & Output 07/27 1600 07/27 0800 07/27 0000 07/26 1600 07/26 0800 07/26 0000 Intake Total 600 480 400 480 Output Total 350 600 400 Balance 250 480 -200 80 Intake, Oral 600 480 400 480 Number 1 Bowel Movements Output, Urine 350 600 400 Physical Exam: General Appearance: alert, awake, comfortable Ears, Nose, Throat: normal pharynx Respiratory: normal breath sounds, chest non-tender Cardiovascular: regular rate/rhythm Abdomen: normal bowel sounds, soft, non-tender Extremities: normal inspection Neurologic/Psychiatric: alert, oriented x 3 Current Medications: Current Medications Sig/Cathi Start time Last Medication Dose Route Stop Time Status Admin Acetaminophen 650 MG Q6P PRN 07/23 1815 AC PO Aspirin 81 MG DAILY 07/24 1200 AC 07/26 PO 0909 Atorvastatin Calcium 40 MG 1700 07/24 1700 AC 07/26 PO 1613 Ferrous Sulfate 325 MG TID 07/25 2200 AC 07/26 PO 2151 Levothyroxine Sodium 0.025 MG DAILY AC 07/24 1457 AC 07/27 PO 0655 Metoprolol Succinate 50 MG DAILY 07/26 1000 AC 07/26 PO 0909 Oxycodone/ 1 TAB Q6P PRN 07/23 1815 AC Acetaminophen PO Oxycodone/ 2 TAB Q6P PRN 07/23 1815 AC Acetaminophen PO Patient Medication 1 ED .STK-MED ONE 07/26 1355 ND Teaching ED 07/26 1356 Results Last 24 Hours of Lab Results: Laboratory Tests 07/27 0705 Chemistry Sodium Pending Potassium Pending Chloride Pending Carbon Dioxide Pending Anion Gap Pending BUN Pending Creatinine Pending BUN/Creatinine Ratio Pending Hematology CBC w Diff Pending WBC Pending RBC Pending Hgb Pending Hct Pending MCV Pending MCH Pending RDW Pending Plt Count Pending MPV Pending PUBS MCHC Pending Recent Imaging Studies: Echocardiogram 07/26/2016: Hyperdynamic left ventricular systolic function. Probably severe posteriorly directed Mitral regurgitation .Increased echogenicity noted on the Anterior Mitral leaflet. Torn chord,vegetation may be considered. Would suggest a JORJE to better delineate Mitral Valve pathology and evaluate for cardioembolic source as bubble study was suboptimal. Moderate Pulmonary hypertension. Assessment/Plan Assessment/Recommendations: Ms. Petty is a 56-year-old female with chronic headaches who presented with new palpitation, confusion, anemia, and thrombocytopenia. Chronicity of anemia and thrombocytopenia is unclear at the moment. On admission, her hemoglobin was 8.7 with platelet of 78,000. Work up in the hospital and previously in early June demonstrated low serum iron, normal TIBC, low-normal ferritin, normal folate, negative occult blood in stool, elevated ESR, and slightly decreased renal function. Her reticulocytes were low relative to her anemia. This suggests a myelosuppressive process. Anemia of chronic disease and anemia of iron deficiency are possible etiologies. She is on oral iron now. Inflammatory disease is also possible. She has some subacute CVA on MRI of the brain which can be concerning for vasculitis. Other etiologies would include PNH and MPN. Viral infection is also another potential cause of her anemia/thrombocytopenia. Hepatitis and HIV are negative. Lyme antibody was positive. Echocardiogram demonstrated a potential ruptured chord in the mitral valve. JORJE is being planned to evaluate this further. Bubble study was suboptimal. JORJE will help further evaluate for PFO. 1. Follow up JORJE 2. Continue ferrous sulfate 325 mg PO TID daily 3. Check reticulocyte counts tomorrow (should see some improvement with iron repletion) 4. Follow up on Lyme western blot and rheumatologic workup 5. Outpatient GI evaluation 6. Follow up on neurology recommendations Please call [phone] with any questions or concerns Problem List: 1. Thrombocytopenia 2. Anemia 3. REN (acute kidney injury) 4. CVA (cerebral vascular accident)
[2016-07-27 09:03] LABS: GRANULOCYTE % 73.4 % (42.2-75.2)
--- NOTE | 2016-07-27 09:30 | PN- Att Addend ---
Attending Addendum Attending Brief Note Patient has no complaints General Appearance: Alert, No Acute Distress Skin: Grossly normal HEENT: PEERLA Neck: Supple, No JVD Cardiovascular: Regular Rate, Normal S1, Normal S2, No Murmurs Lungs: Clear to Auscultation, Normal Air Movement Abdomen: Normal Bowel Sounds, Soft, No Tenderness Neurological: Left-sided weakness both upper and lower extremity, exaggerated reflexes all 4 extremities, upgoing plantar left-sided, left hemisphere visual field defect Extremities: No Clubbing, No Cyanosis, No Edema Vascular: Normal Pulses Assessment Left-sided CVA involving right thalamus and left cerebellar. MRA suggests narrowing of posterior cerebral artery raising concerns for possible underlying vasculitis and lupus. Currently workup for vasculitis and lupus is pending. Transthoracic echo with bubble study nonconclusive however there is suggestion of mitral valve dysfunction with possible vegetations. She is scheduled for transesophageal echo today. Plan Transesophageal echo Continue aspirin and statin Lupus workup Iron supplement levothyroxine 25 g once daily Continue to monitor patient on telemetry Hold amitriptyline DVT prophylaxis PT and OT evaluation Speech evaluation Current Medications Sig/Cathi Start time Last Medication Dose Route Stop Time Status Admin Acetaminophen 650 MG Q6P PRN 07/23 1815 AC PO Aspirin 81 MG DAILY 07/24 1200 AC 07/26 PO 0909 Atorvastatin Calcium 40 MG 1700 07/24 1700 AC 07/26 PO 1613 Ferrous Sulfate 325 MG TID 07/25 2200 AC 07/26 PO 2151 Levothyroxine Sodium 0.025 MG DAILY AC 07/24 1457 AC 07/27 PO 0655 Metoprolol Succinate 50 MG DAILY 07/26 1000 AC 07/26 PO 0909 Oxycodone/ 1 TAB Q6P PRN 07/23 1815 AC Acetaminophen PO Oxycodone/ 2 TAB Q6P PRN 07/23 1815 AC Acetaminophen PO Patient Medication 1 ED .STK-MED ONE 07/26 1355 PR Teaching ED 07/26 1356 Laboratory Tests 07/27 0705 Chemistry Sodium (137 - 145 mmol/L) 143 Potassium (3.5 - 5.1 mmol/L) 4.0 Chloride (98 - 107 mmol/L) 110 H Carbon Dioxide (22 - 30 mmol/L) 24 Anion Gap (5 - 16) 10 BUN (7 - 17 mg/dL) 28 H Creatinine (0.5 - 1.0 mg/dL) 1.2 H Estimated GFR (>60 ml/min) 46 L BUN/Creatinine Ratio (7 - 25 %) 23.3 Hematology CBC w Diff NO MAN DIFF REQ WBC (4.8 - 10.8 /CUMM) 5.9 RBC (4.20 - 5.40 /CUMM) 3.20 L Hgb (12.0 - 16.0 G/DL) 7.7 L Hct (37 - 47 %) 23.6 L MCV (81.0 - 99.0 FL) 73.9 L MCH (27.0 - 31.0 PG) 24.1 L RDW (11.5 - 14.5 %) 16.0 H Plt Count (130 - 400 /CUMM) 123 L MPV (7.4 - 10.4 FL) 11.2 H Gran % (42.2 - 75.2 %) 73.4 Lymphocytes % (20.5 - 51.1 %) 16.8 L Monocytes % (1.7 - 9.3 %) 7.0 Eosinophils % (0 - 5 %) 2.2 Basophils % (0.0 - 2.0 %) 0.6 Absolute Granulocytes (1.4 - 6.5 /CUMM) 4.3 Absolute Lymphocytes (1.2 - 3.4 /CUMM) 1.0 L Absolute Monocytes (0.10 - 0.60 /CUMM) 0.4 Absolute Eosinophils (0.0 - 0.7 /CUMM) 0.1 Absolute Basophils (0.0 - 0.2 /CUMM) 0 PUBS MCHC (33.0 - 37.0 G/DL) 32.6 L Vital Signs Date Time Temp Pulse Resp B/P Pulse O2 O2 Flow FiO2 Ox Delivery Rate 07/27 0800 98.2 88 20 134/78 96 Room Air 07/27 0000 98.7 90 18 142/80 98 Room Air 07/26 1603 99.1 93 18 132/78 98 Room Air
--- NOTE | 2016-07-27 10:27 | PN- Housestaff ---
Subjective Follow-up For: CVA Tele-Events Since Last Visit: Sinus rhythm, heart rate 70-80 Subjective: Patient was seen and examined this morning, patient denied any chest pain, palpitation, weakness, headache, blurry vision. No overnight events reported by the patient or the nurses. No acute distress, vital signs are stable. Patient is nothing by mouth for JORJE this morning. The patient and her want to discuss treatment and discharge plan today. Review of Systems Constitutional: Denies: no symptoms. Objective Last 24 Hrs of Vital Signs/I&O Vital Signs Date Time Temp Pulse Resp B/P Pulse O2 O2 Flow FiO2 Ox Delivery Rate 07/27 1142 85 130/88 07/27 0800 98.2 88 20 134/78 96 Room Air 07/27 0000 98.7 90 18 142/80 98 Room Air 07/26 1603 99.1 93 18 132/78 98 Room Air Intake & Output 07/27 1600 07/27 0800 07/27 0000 Intake Total 600 Output Total 350 Balance 250 Intake, Oral 600 Output, Urine 350 Physical Exam General Appearance: Alert, Oriented X3, Cooperative, No Acute Distress Skin: No Rashes, No Breakdown, No Significant Lesion HEENT: Atraumatic, PERRLA, EOMI, Mucous Membr. moist/pink Neck: Supple Cardiovascular: Regular Rate, Normal S1, Normal S2, 3/6 systolic murmur at tricusped area Lungs: Clear to Auscultation, Normal Air Movement Abdomen: Normal Bowel Sounds, Soft, No Tenderness Neurological: Normal Speech, Strength at 5/5 X4 Ext, Normal Tone, Sensation Intact, Cranial Nerves 3-12 NL, Reflexes 2+, right hand dysmetria left hand asterognosis Extremities: No Clubbing, No Cyanosis, No Edema, Normal Pulses Assessment/Plan Assessment: 56-year-old lady with a PMH of chronic headaches (??migraines) managed with amitriptyline 10 mg daily who presents with complaints of two-week duration progressive weakness, imbalance, confusion and new onset palpitations. VS on admission: BP 110/75, HR 170, RR 20, SPO2 99% on RA, T 99.6 Labs: WBC 14.8, 90% bandemia. H&H 8.7/26.5, platelets 78, chloride 109, bicarbonate 18, BUN/CR 34/1.4 Troponin: 0.30 TSH: 7.[address] as indicated above Problem list: 1. AMS: Infectious etiology versus progressive vascular insufficiency 2. Narrow complex tachycardia 3. Elevated troponins 4. SIRS criteria 5. Anemia 6. Thrombocytopenia 7. Acute kidney injury 8. Elevated TSH Plan: 1. CVA * CT head without contrast 07/23 No acute intracranial pathology. Progressive moderate generalized volume loss relative to the prior available study of 2005. Chronic appearing lacunar infarcts are present within the left thalamus and right cerebellar hemisphere, which have developed in the interim since 2005. Small areas of encephalomalacia and gliosis in the high frontal lobes bilaterally have also developed in the interim since the prior study. * MRI brain without YESENIA 07/25 - Multiple acute to subacute infarcts within the right occipital lobe, the right periventricular white matter posteriorly, the left middle frontal gyrus, and possibly the left parietal postcentral gyrus. - Chronic infarcts within the right occipital lobe, the left thalamus, the cerebellar hemispheres, and the parietal post central gyri bilaterally. Moderate chronic microangiopathy and global cerebral volume loss that is greatest within the parietal lobes bilaterally. * Carotid Doppler ultrasound 07/24 No hemodynamically significant stenosis in either carotid arteries. Normal antegrade flow seen in both vertebral arteries. * Echocardiogram with bubble study to exclude PFO 07/26 Hyperdynamic left ventricular systolic function. Probably severe posteriorly directed Mitral regurgitation .Increased echogenicity noted on the Anterior Mitral leaflet. Torn chord,vegetation may be considered. Would suggest a JORJE to better delineate Mitral Valve pathology and evaluate for cardioembolic source as bubble study was suboptimal. Moderate Pulmonary hypertension. * Patient will be nothing by mouth for JORJE this morning * Neurology consultation was placed Dr. Shelby * Keep systolic blood pressure less than 140 * Continue Neurochecks Q2hrs * Continue atorvastatin 40 mg daily * Continue aspirin 81 mg daily * Lipid panel within normal limits * Orthostatic measurement on 07/24 is negative * ANCA is positive suggesting vasculitis pathology * Lyme antibody positive, titer still pending * ESR 128 high * ISMAEL pending * Infectious cause such as HIV, hepatitis are negative * blood Cx pending, urine cultures no growth to date 2. Narrow complex tachycardia * Unclear etiology of her palpitations at this time. DDX: Hypothyroidism vs infectious source * Patient did receive single dose of adenosine with noticeable prolonged pause, Lopressor 5 mg IV 1 * Trop * Cardiology consultation was obtained, eitology could be AVNRT * Continue metoprolol succinate to 50 mg daily * JORJE results still pending * Patient is off telemetry * Patient will be instructed to follow up with cardiology as an outpatient father cardiac workup 3. Elevated troponins * Troponin is trending down. Likely secondary to prolonged narrow complex tachycardia. However, in the setting of two-week duration generalized weakness, fatigue, difficulty w/ ambulation, will trend troponins and EKG (2200, 0400) 4. Pancytopenia * Unclear etiology at this time * Hematology consultation was obtained * Could be nutritional, infection, inflammatory * Peripheral smear was ordered, showed anisocytosis and poikilocytosis but no schistocytes * Lactate dehydrogenase is elevated but no elevated bilirubin * Lupus workup was ordered * Serum iron level is 19, TIBC 328, ferretin 25 * Start ferritin sulfate 325 3 times a day * Guaiac stools negative * Patient has microcytic anemia hematocrit is 74 * Recheck reticulocyte count tomorrow morning to evaluate the effect of iron supplementation * Continue hold amitriptaline 5. Acute kidney injury * Patient received 1 bolus normal saline * BUN/creatinine 28/1.1 6. Elevated TSH * Synthroid 25 mg daily * TSH 7.46, free T4 1.73 7. Diet: * Heart healthy 8. DVT prophylaxis * ALPs 9. CODE STATUS * Full code Consultation cardiology, neurology, hematology, PT, OT Problem List: 1. CVA (cerebral vascular accident) 2. REN (acute kidney injury) 3. Thrombocytopenia 4. Anemia Pain Ratin Pain Location: n/a Pain Goal: Pain 4 or less Pain Plan: mild pain pathway Tomorrow's Labs & Rationales: CBC, CMP, Reticulocyte count Consulting Request: Consulting Specialty: Neurology
--- NOTE | 2016-07-27 11:12 | NUR ---
PHYSICAL THERAPY: ATTEMPTED TO SEE PATIENT THIS A.M.; PATIENT OFF THE FLOOR AT JORJE. WILL F/U APPROPRAITE THIS P.M.
--- NOTE | 2016-07-27 12:05 | PN- Cardiology ---
Subjective Subjective: The patient is awake, alert The events of the last 24 hours as well as telemetry were reviewed. Review of Systems: The review of systems is negative for chest pains, palpitations nor lightheadedness. The remainder of the 14 point review of systems is noncontributory with the exception of above. Objective Vital Signs and I&Os Vital Signs Date Time Temp Pulse Resp B/P Pulse O2 O2 Flow FiO2 Ox Delivery Rate 07/27 1142 85 130/88 07/27 08 98.2 88 20 134/78 96 Room Air 07/27 0000 98.7 90 18 142/80 98 Room Air 07/26 1603 99.1 93 18 132/78 98 Room Air Intake & Output 07/27 1600 07/27 0800 07/27 0000 07/26 1600 07/26 0800 07/26 0000 Intake Total 600 480 400 480 Output Total 350 600 400 Balance 250 480 -200 80 Intake, Oral 600 480 400 480 Number 1 Bowel Movements Output, Urine 350 600 400 Physical Exam: General: Nontoxic, no apparent distress. HEENT: Sclera and conjunctiva within normal limits, without xanthelasmas. Neck: Carotids 2+ without bruits. Respiratory: Clear to auscultation, air movement is good, without accessory respiratory muscle use. Heart: Regular rate and rhythm, 2/6 systolic ejection murmur left sternal border , without JVD. Abdomen: Soft, nontender, no masses, normoactive bowel sounds. Extremities: Without clubbing, cyanosis, without edema. Neuro: Nonfocal exam, strength, 5 out of 5 Skin: Within normal limits without lesions. Psych: Mood and affect: Normal Current Medications: Current Medications Sig/Cathi Start time Last Medication Dose Route Stop Time Status Admin Acetaminophen 650 MG Q6P PRN 07/23 1815 AC PO Aspirin 81 MG DAILY 07/24 1200 AC 07/27 PO 1141 Atorvastatin Calcium 40 MG 1700 07/24 1700 AC 07/26 PO 1613 Ferrous Sulfate 325 MG TID 07/25 2200 AC 07/27 PO 1141 Levothyroxine Sodium 0.025 MG DAILY AC 07/24 1457 AC 07/27 PO 0655 Metoprolol Succinate 50 MG DAILY 07/26 1000 AC 07/27 PO 1142 Oxycodone/ 1 TAB Q6P PRN 07/23 1815 AC Acetaminophen PO Oxycodone/ 2 TAB Q6P PRN 07/23 1815 AC Acetaminophen PO Patient Medication 1 ED .[facility] 07/26 1355 [facility] ED 07/26 1356 Results Last 48 Hrs of Labs/Mics: Laboratory Tests 07/27/16 0705: Anion Gap 10, Estimated GFR 46 L, BUN/Creatinine Ratio 23.3, CBC w Diff NO MAN DIFF REQ, RBC 3.20 L, MCV 73.9 L, MCH 24.1 L, RDW 16.0 H, MPV 11.2 H, Gran % 73.4, Lymphocytes % 16.8 L, Monocytes % 7.0, Eosinophils % 2.2, Basophils % 0.6, Absolute Granulocytes 4.3, Absolute Lymphocytes 1.0 L, Absolute Monocytes 0.4, Absolute Eosinophils 0.1, Absolute Basophils 0, PUBS MCHC 32.6 L 07/26/16 0614: Anion Gap 13, Estimated GFR 51 L, BUN/Creatinine Ratio 25.5 H, CBC w Diff MAN DIFF ORDERED, RBC 3.43 L, MCV 74.2 L, MCH 24.3 L, RDW 15.8 H, MPV 11.4 H, Gran % 80.6 H, Lymphocytes % 12.7 L, Monocytes % 4.7, Eosinophils % 1.8, Basophils % 0.2, Absolute Granulocytes 6.0, Segmented Neutrophils 72, Band Neutrophils 7 H, Absolute Lymphocytes 0.9 L, Lymphocytes 14 L, Monocytes 5, Absolute Monocytes 0.4, Eosinophils 2, Absolute Eosinophils 0.1, Absolute Basophils 0, Platelet Estimate DECREASED, Polychromasia 1+, Hypochromic- Microcytic 2+, Poikilocytosis 2+, Anisocytosis 2+, Ovalocytes 2+, PUBS MCHC 32.7 L, Hepatitis A IgM Ab NONREACTIVE, Hep Bs Antigen NONREACTIVE, Hep B Core IgM Ab Conf NONREACTIVE, Hepatitis C Antibody NONREACTIVE, HIV 1&2 Ab Western Blot NONREACTIVE 07/25/16 1215: CBC w Diff MAN DIFF ORDERED, RBC 3.51 L, MCV 74.0 L, MCH 24.1 L, RDW 15.5 H, MPV 11.9 H, Gran % 82.6 H, Lymphocytes % 10.8 L, Monocytes % 5.5, Eosinophils % 0.8, Basophils % 0.3, Absolute Granulocytes 5.1, Segmented Neutrophils 85 H, Band Neutrophils 1, Absolute Lymphocytes 0.7 L, Lymphocytes 9 L, Monocytes 3, Absolute Monocytes 0.3, Absolute Eosinophils 0, Basophils 2, Absolute Basophils 0, Platelet Estimate DECREASED, Polychromasia 1+, Hypochromic-Microcytic 2+, Poikilocytosis 2+, Anisocytosis 2+, Microcytic Cells 1+, Ovalocytes 1+, PUBS MCHC 32.5 L, ISMAEL Titer , Anti-Nuclear Antibody POS BY IFA ASSAY Assessment/Plan Assessment/Plan 1. Narrow complex tachycardia terminated with adenosine, consistent with AVNRT 2. Recent neurologic symptoms with abnormal CT, concern for subacute CVA? 3. History of migraine headache 4. Anemia/thrombocytopenia of unclear etiology 5. Mild renal insufficiency 6. Elevated troponin with flat troponin curve consistent with demand ischemia from the SVT 7. 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 Follow-up with EP will likely be performed as an outpatient. We will attempt to increase her regimen of metoprolol to 50 mg by mouth daily for further arrhythmia suppression, and especially given her hypertension. CVA: Awaiting further input by neurology. Given the patient's finding of supraventricular tachycardia, consideration for degradation and atrial fibrillation must as well be given. If an ablation for AVNRT is not performed, consideration for an implantation of a Linq device (may be done as an outpatient ) will be given Mitral regurgitation: The patient underwent a transesophageal echocardiogram today which demonstrated normal LV systolic function. There was focal thickening of the mitral valve leaflet tips with a small mobile echodensity attached to the anterior leaflet, consistent with a likely small chordal rupture. There is moderate mitral regurgitation. Disposition: Following the JORJE, the patient may be observed in recovery. Further outpatient cardiac workup including a possible AVNRT ablation will be performed as an outpatient. Continue telemetry? No
--- NOTE | 2016-07-27 13:39 | NUR ---
OCCUPATIONAL THERAPY NOTE: CHART REVIEWED, ATTEMPTED TO SEE PT PRIOR TO JORJE, PT OFF THE UNIT FOR JORJE. OT WILL FOLLOW-UP WITH PATIENT TOMORROW IF APPROPRIATE. THANK YOU, ANNEMARIE
[2016-07-27 16:00] VITALS: BP 138/84
[2016-07-28 00:40] VITALS: BP 140/80
[2016-07-28 08:09] LABS: ABSOLUTE BASOPHIL COUNT 0 /CUMM (0.0-0.2); ABSOLUTE EOSINOPHIL COUNT 0.2 /CUMM (0.0-0.7); ABSOLUTE GRANULOCYTE CT 4.7 /CUMM (1.4-6.5); ABSOLUTE LYMPH COUNT 1.3 /CUMM (1.2-3.4); ABSOLUTE MONOCYTE COUNT 0.5 /CUMM (0.10-0.60); BASOPHIL % 0.4 % (0.0-2.0); EOSINOPHIL % 2.9 % (0-5); GRANULOCYTE % 70.8 % (42.2-75.2); HEMATOCRIT 25.8 % (37-47); MEAN CORPUSCULAR HGB 24.3 PG (27.0-31.0); MEAN CORPUSCULAR HGB CONC 32.5 G/DL (33.0-37.0); MEAN CORPUSCULAR VOLUME 74.5 FL (81.0-99.0); PLATELET COUNT 143 /CUMM (130-400); RBC DISTRIBUTION WIDTH 15.8 % (11.5-14.5); RED BLOOD CELL CT 3.46 /CUMM (4.20-5.40); WHITE BLOOD CELL COUNT 6.7 /CUMM (4.8-10.8)
--- NOTE | 2016-07-28 08:13 | PN- Hematology ---
Subjective Subjective: She denies any new symptoms. She has no new pain. Review of Systems: Constitutional: Denies: chills, fever. EENTM: Denies: blurred vision, double vision. Cardiovascular: Denies: chest pain. Respiratory: Denies: short of breath. Gastrointestinal: Denies: abdominal pain. Genitourinary: Denies: hematuria. Skin: Denies: rash. Neurological/Psychological: Denies: anxiety, confusion. All Other Systems: Reviewed and Negative Objective Vital Signs and I&Os Vital Signs Date Time Temp Pulse Resp B/P Pulse O2 O2 Flow FiO2 Ox Delivery Rate 07/28 0040 98.9 84 20 140/80 96 Room Air 07/27 1600 98.2 91 20 138/84 99 Room Air 07/27 1142 85 130/88 Intake & Output 07/28 0807/28 0000 07/27 1600 07/27 0807/27 0000 Intake Total 120 240 600 Output Total 450 400 350 Balance -330 -160 250 Intake, Oral 120 240 600 Output, Urine 450 400 350 Physical Exam: General Appearance: alert, awake, comfortable Respiratory: normal breath sounds, chest non-tender Cardiovascular: regular rate/rhythm Abdomen: normal bowel sounds, soft, non-tender Extremities: normal inspection Neurologic/Psychiatric: alert, oriented x 3. Strength intake. Speech is slowed. Skin: No rash. No bruising. Current Medications: Current Medications Sig/Cathi Start time Last Medication Dose Route Stop Time Status Admin Acetaminophen 650 MG Q6P PRN 07/23 1815 AC PO Aspirin 81 MG DAILY 07/24 1200 AC 07/27 PO 1141 Atorvastatin Calcium 40 MG 1700 07/24 1700 AC 07/27 PO 1648 Ferrous Sulfate 325 MG TID 07/25 2200 AC 07/27 PO 2112 Levothyroxine Sodium 0.025 MG DAILY AC 07/24 1457 AC 07/28 PO 0612 Metoprolol Succinate 50 MG DAILY 07/26 1000 AC 07/27 PO 1142 Oxycodone/ 1 TAB Q6P PRN 07/23 1815 AC Acetaminophen PO Oxycodone/ 2 TAB Q6P PRN 07/23 1815 AC Acetaminophen PO Results Last 24 Hours of Lab Results: Laboratory Tests 07/28 0518 Chemistry Sodium (137 - 145 mmol/L) 144 Potassium (3.5 - 5.1 mmol/L) 3.9 Chloride (98 - 107 mmol/L) 110 H Carbon Dioxide (22 - 30 mmol/L) 23 Anion Gap (5 - 16) 12 BUN (7 - 17 mg/dL) 28 H Creatinine (0.5 - 1.0 mg/dL) 1.2 H Estimated GFR (>60 ml/min) 46 L BUN/Creatinine Ratio (7 - 25 %) 23.3 Hematology CBC w Diff Pending WBC Pending RBC Pending Hgb Pending Hct Pending MCV Pending MCH Pending RDW Pending Plt Count Pending MPV Pending PUBS MCHC Pending Retic Count Pending Recent Imaging Studies: JORJE 07/27/2016: Per report, small rupture chordae in anterior leaflet of MV. Assessment/Plan Assessment/Recommendations: Ms. Petty is a 56-year-old female with chronic headaches who presented with new palpitation, confusion, anemia, and thrombocytopenia. On admission, her hemoglobin was 8.7 with platelet of 78,000. Work up have suggested a myelosuppressive process. Anemia of chronic disease and anemia of iron deficiency are possible etiologies. She is on oral iron now. Inflammatory disease is also possible. She has some subacute CVA on MRI of the brain which can be concerning for vasculitis. Hepatitis and HIV are negative. Lyme antibody was positive. Western blot is negative. ISMAEL is positive (1:160). JORJE with rupture chordae in anterior leaflet. She likely has an underlying rheumatologic process. She may need therapy with immunosuppressive agent such as steroid initially. She is now on aspirin for her CVA. 1. Follow up JORJE report 2. Continue ferrous sulfate 325 mg PO TID daily 3. Reticulocyte counts pending today 4. Consider rheumatology consult and workup (? outpatient) 5. Outpatient GI evaluation 6. Follow up on neurology recommendations Please call [phone] with any questions or concerns Problem List: 1. CVA (cerebral vascular accident) 2. REN (acute kidney injury) 3. Thrombocytopenia 4. Anemia
[2016-07-28 08:22] VITALS: BP 132/78
--- NOTE | 2016-07-28 09:29 | PN- Att Addend ---
Attending Addendum Attending Brief Note Patient has no complaints General Appearance: Alert, No Acute Distress Skin: Grossly normal HEENT: PEERLA Neck: Supple, No JVD Cardiovascular: Regular Rate, Normal S1, Normal S2, No Murmurs Lungs: Clear to Auscultation, Normal Air Movement Abdomen: Normal Bowel Sounds, Soft, No Tenderness Neurological: Left-sided weakness both upper and lower extremity, exaggerated reflexes all 4 extremities, upgoing plantar left-sided, left hemisphere visual field defect Extremities: No Clubbing, No Cyanosis, No Edema Vascular: Normal Pulses Assessment Left-sided CVA involving right thalamus and left cerebellar. MRA suggests narrowing of posterior cerebral artery raising concerns for possible underlying vasculitis and lupus. Currently workup for vasculitis and lupus is pending. Transthoracic echo with bubble study was nonconclusive, a transesophageal echocardiogram was unremarkable although report this time is currently unavailable. High suspicion for underlying vasculitis. We'll get a rheumatology evaluation prior to discharge Plan Get rheumatology evaluation prior to discharge Continue aspirin and statin Lupus workup Iron supplement levothyroxine 25 g once daily Continue to monitor patient on telemetry Discontinue amitriptyline DVT prophylaxis PT and OT evaluation Speech evaluation Current Medications Sig/Cathi Start time Last Medication Dose Route Stop Time Status Admin Acetaminophen 650 MG Q6P PRN 07/23 1815 AC PO Aspirin 81 MG DAILY 07/24 1200 AC 07/27 PO 1141 Atorvastatin Calcium 40 MG 1700 07/24 1700 AC 07/27 PO 1648 Ferrous Sulfate 325 MG TID 07/25 2200 AC 07/27 PO 2112 Levothyroxine Sodium 0.025 MG DAILY AC 07/24 1457 AC 07/28 PO 0612 Metoprolol Succinate 50 MG DAILY 07/26 1000 AC 07/27 PO 1142 Oxycodone/ 1 TAB Q6P PRN 07/23 1815 AC Acetaminophen PO Oxycodone/ 2 TAB Q6P PRN 07/23 1815 AC Acetaminophen PO Laboratory Tests 07/28 0618 Chemistry Sodium (137 - 145 mmol/L) 144 Potassium (3.5 - 5.1 mmol/L) 3.9 Chloride (98 - 107 mmol/L) 110 H Carbon Dioxide (22 - 30 mmol/L) 23 Anion Gap (5 - 16) 12 BUN (7 - 17 mg/dL) 28 H Creatinine (0.5 - 1.0 mg/dL) 1.2 H Estimated GFR (>60 ml/min) 46 L BUN/Creatinine Ratio (7 - 25 %) 23.3 Hematology CBC w Diff MAN DIFF ORDERED WBC (4.8 - 10.8 /CUMM) 6.7 RBC (4.20 - 5.40 /CUMM) 3.46 L Hgb (12.0 - 16.0 G/DL) 8.4 L Hct (37 - 47 %) 25.8 L MCV (81.0 - 99.0 FL) 74.5 L MCH (27.0 - 31.0 PG) 24.3 L RDW (11.5 - 14.5 %) 15.8 H Plt Count (130 - 400 /CUMM) 143 MPV (7.4 - 10.4 FL) 11.0 H Gran % (42.2 - 75.2 %) 70.8 Lymphocytes % (20.5 - 51.1 %) 18.7 L Monocytes % (1.7 - 9.3 %) 7.2 Eosinophils % (0 - 5 %) 2.9 Basophils % (0.0 - 2.0 %) 0.4 Absolute Granulocytes (1.4 - 6.5 /CUMM) 4.7 Absolute Lymphocytes (1.2 - 3.4 /CUMM) 1.3 Absolute Monocytes (0.10 - 0.60 /CUMM) 0.5 Absolute Eosinophils (0.0 - 0.7 /CUMM) 0.2 Absolute Basophils (0.0 - 0.2 /CUMM) 0 Platelet Estimate (ADEQUATE) DECREASED Polychromasia 1+ Hypochromic-Microcytic 2+ Poikilocytosis 2+ Anisocytosis 1+ Ovalocytes 2+ PUBS MCHC (33.0 - 37.0 G/DL) 32.5 L Retic Count (0.5 - 2.0 %) 2.72 H Vital Signs Date Time Temp Pulse Resp B/P Pulse O2 O2 Flow FiO2 Ox Delivery Rate 07/28 0822 98.6 85 18 132/78 98 Room Air 07/28 0040 98.9 84 20 140/80 96 Room Air 07/27 1600 98.2 91 20 138/84 99 Room Air 07/27 1142 85 130/88
--- NOTE | 2016-07-28 13:28 | Cons- Neurology ---
General Information and HPI Consulting Request Date of Consult: 07/28/16 Requested By: YAYO MADDEN MD Reason for Consult: PHYSICAL MEDICINE & REHABILITATION CONSULT RE: DETERMINATION OF REHAB LEVEL OF CARE (AFTER CVA's) Source of Information: patient, family, EMR Exam Limitations: no limitations History of Present Illness: 56-year-old RH female presented on 07-23 with subacute onset gait imbalance and confusion. She had also been experiencing palpitations. Brain MRI showed multiple acute to subacute infarcts within the right occipital lobe, the right periventricular white matter posteriorly, the left middle frontal gyrus, and possibly the left parietal postcentral gyrus. and chronic infarcts within the right occipital lobe, the left thalamus, the cerebellar hemispheres, and the parietal post central gyri bilaterally. Moderate chronic microangiopathy and global cerebral volume loss that is greatest within the parietal lobes bilaterally. Transthoracic and trans-esophageal echocardiogram results as shown below. She was also found to have supraventricular tachycardia. Paroxysmal atrial fibrillation may be a possibility. Per the clearing distribution clerk Dr. 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 She is on aspirin and statin therapy. She is a lifelong nonsmoker. There is no known family history of stroke. She has chronic daily headaches for which she takes amitriptyline for prophylaxis and prn Advil for breakthrough pain Allergies/Medications Allergies: Coded Allergies: No Known Allergies (07/23/16) Home Med List: Amitriptyline HCl 10 MG TABLET 1 TAB PO QPM DIRECTED (Reported) Current Medications: Current Medications Sig/Cathi Start time Last Medication Dose Route Stop Time Status Admin Acetaminophen 650 MG Q6P PRN 07/23 1815 AC PO Aspirin 81 MG DAILY 07/24 1200 AC 07/28 PO 0931 Atorvastatin Calcium 40 MG 1700 07/24 1700 AC 07/27 PO 1648 Ferrous Sulfate 325 MG TID 07/25 2200 AC 07/28 PO 0931 Levothyroxine Sodium 0.025 MG DAILY AC 07/24 1457 AC 07/28 PO 0612 Metoprolol Succinate 50 MG DAILY 07/26 1000 AC 07/28 PO 0931 Oxycodone/ 1 TAB Q6P PRN 07/23 1815 AC Acetaminophen PO Oxycodone/ 2 TAB Q6P PRN 07/23 1815 AC Acetaminophen PO Patient Medication 1 ED .STK-MED ONE 07/28 1322 [place] Teaching ED 07/28 1323 Review of Systems Review of Systems: REVIEW OF SYSTEMS: (-) = negative / normal blank = not discussed Neurologic: see HPI Eyes: (-) ENT: (-) Constitutional: (-) CV: See HPI Respiratory: (-) /Renal: (-) Musculoskeletal: (-) Skin: (-) Psychiatric: (-) Heme: (-) GI: (-) Allergy/Immune: (-) Endocrine: (-) Other: (-) Past History Travel History Traveled to [place] past 21 day No Medical History Neurological: CHRONIC HEADACHES EENT: NONE Cardiovascular: NONE Respiratory: NONE Gastrointestinal: NONE Hepatic: NONE Renal: NONE Musculoskeletal: NONE Psychiatric: NONE Endocrine: NONE Blood Disorders: NONE Cancer(s): NONE 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 Home Who Do You Live With? spouse Services at Home: None Primary Language: [place] Smoking Status: Never Smoked ETOH Use: occasional use Illicit Drug Use: denies illicit drug use Other Social History: Spouse is retired from [employer]. They have no children. The patient has several siblings who live in the [facility] Functional Ability ADLs Independent: dressing (prior to stroke), eating, toileting, bathing. Ambulation: independent (prior to stroke) IADLs Independent: shopping (prior to stroke), housework, finances, food prep, telephone, transportation, medication admin. 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 Exam & Diagnostic Data Vital Signs and I&O Vital Signs Date Time Temp Pulse Resp B/P Pulse O2 O2 Flow FiO2 Ox Delivery Rate 07/28 0931 85 132/78 07/28 0822 98.6 85 18 132/78 98 Room Air 07/28 0040 98.9 84 20 140/80 96 Room Air 07/27 1600 98.2 91 20 138/84 99 Room Air Intake & Output 07/28 1600 07/28 0800 07/28 0000 Intake Total 120 240 Output Total 450 400 Balance -330 -160 Intake, Oral 120 240 Output, Urine 450 400 Physical Exam: PHYSICAL EXAMINATION: nl = normal NT or blank = not tested GENERAL Appearance: Sitting up in bedside chair, awake, alert, cooperative, in no apparent distress Head: nl Eyes: nl ENT: nl Neck: nl Carotids: nl Lungs: nl Heart: nl Extremities: nl Spine: nl NEUROLOGIC MENTAL STATUS Level of consciousness: nl Orientation: nl Attention / Concentration: Mildly impaired. Mildly delayed response times Memory: nt Fund of Knowledge: nl Speech / Language: Mildly hypophonic. No dysarthria. NEUROLOGIC CRANIAL NERVES I: Olfaction: NT II: Optic nerves: nl Visual stirnger: Partial homonymous left hemifield defect, worse inferiorly than superiorly III: Pupils: nl Levator palpebrae: nl III, IV, : Ocular alignment: nl Extraocular motility: nl Pursuits/ saccades: nl V: Facial sensation: nl Masseter/Pterygoids: nl VII: Facial Motor: Mild left lower facial weakness VIII: Hearing (finger rub): nl IX, X: Uvula and palate: nl XI: SCM, Upper trap.: nl XII: Tongue: nl MOTOR / NEUROMUSCULAR Bulk: nl Tone: nl Strength: nl R, 4 to 4+ L Rapid alternating movements: nl R, mild to moderately impaired on left (UE/LE) Fine motor movements: Mild to moderately impaired on left Abnormal / involuntary movements: none CEREBELLAR / COORDINATION: Some past pointing on finger to nose testing on the left SENSATION: Reduced joint position left foot. No extinction to double simultaneous stimulation. GAIT: nt Last 48 Hours of Lab Results: Laboratory Tests 07/28 07/27 0618 0705 Chemistry Sodium (137 - 145 mmol/L) 144 143 Potassium (3.5 - 5.1 mmol/L) 3.9 4.0 Chloride (98 - 107 mmol/L) 110 H 110 H Carbon Dioxide (22 - 30 mmol/L) 23 24 Anion Gap (5 - 16) 12 10 BUN (7 - 17 mg/dL) 28 H 28 H Creatinine (0.5 - 1.0 mg/dL) 1.2 H 1.2 H Estimated GFR (>60 ml/min) 46 L 46 L BUN/Creatinine Ratio (7 - 25 %) 23.3 23.3 Hematology CBC w Diff MAN DIFF ORDERED NO MAN DIFF REQ WBC (4.8 - 10.8 /CUMM) 6.7 5.9 RBC (4.20 - 5.40 /CUMM) 3.46 L 3.20 L Hgb (12.0 - 16.0 G/DL) 8.4 L 7.7 L Hct (37 - 47 %) 25.8 L 23.6 L MCV (81.0 - 99.0 FL) 74.5 L 73.9 L MCH (27.0 - 31.0 PG) 24.3 L 24.1 L RDW (11.5 - 14.5 %) 15.8 H 16.0 H Plt Count (130 - 400 /CUMM) 143 123 L MPV (7.4 - 10.4 FL) 11.0 H 11.2 H Gran % (42.2 - 75.2 %) 70.8 73.4 Lymphocytes % (20.5 - 51.1 %) 18.7 L 16.8 L Monocytes % (1.7 - 9.3 %) 7.2 7.0 Eosinophils % (0 - 5 %) 2.9 2.2 Basophils % (0.0 - 2.0 %) 0.4 0.6 Absolute Granulocytes (1.4 - 6.5 /CUMM) 4.7 4.3 Absolute Lymphocytes (1.2 - 3.4 /CUMM) 1.3 1.0 L Absolute Monocytes (0.10 - 0.60 /CUMM) 0.5 0.4 Absolute Eosinophils (0.0 - 0.7 /CUMM) 0.2 0.1 Absolute Basophils (0.0 - 0.2 /CUMM) 0 0 Platelet Estimate (ADEQUATE) DECREASED Polychromasia 1+ Hypochromic-Microcytic 2+ Poikilocytosis 2+ Anisocytosis 1+ Ovalocytes 2+ PUBS MCHC (33.0 - 37.0 G/DL) 32.5 L 32.6 L Retic Count (0.5 - 2.0 %) 2.72 H Imaging/Other Studies: IMAGING: MRI BRAIN: IMPRESSION: - Multiple acute to subacute infarcts within the right occipital lobe, the right periventricular white matter posteriorly, the left middle frontal gyrus, and possibly the left parietal postcentral gyrus. - Chronic infarcts within the right occipital lobe, the left thalamus, the cerebellar hemispheres, and the parietal post central gyri bilaterally. Moderate chronic microangiopathy and global cerebral volume loss that is greatest within the parietal lobes bilaterally. DICTATED BY: LAURA HIGGINS MD DATE/TIME DICTATED:07/25/161129 CAROTID US: IMPRESSION: No hemodynamically significant stenosis in either carotid arteries. Normal antegrade flow seen in both vertebral arteries. DICTATED BY: KIMBERLY JIMENEZ,MINO DATE/TIME DICTATED:07/24/161656 TTE: CONCLUSIONS Hyperdynamic left ventricular systolic function. Probably severe posteriorly directed Mitral regurgitation .Increased echogenicity noted on the Anterior Mitral leaflet. Torn chord,vegetation may be considered. Would suggest a JORJE to better delineate Mitral Valve pathology and evaluate for cardioembolic source as bubble study was suboptimal. Moderate Pulmonary hypertension. Rubio Gonzales M.D. (Electronically Signed) Final Date: 26 July 2016 MRA COW IMPRESSION: 1. There is poor arborization of the right middle cerebral artery branches in the sylvian fissure compared to the left, and there is narrower caliber of the P3 segment of the right posterior cerebral artery compared to the left. 2. There is no evidence of aneurysm or vascular malformation. PT NOTES: Subjective: Pt RECEIVED IN BED. Pt AND HER REPORT THEY HAVE BEEN THINKING ABOUT OPTION OF ACUTE REHAB FOR D/C AND AGREE SHE WOULD BENEFIT. Pain Rating: Note DENIED PAIN Bed Mobility- Note Rolling+ Supervision Assist of: 1 HOB ELEVATED, USE OF HAND RAIL Supine < > Sit+ Supervision Assist of: 1 Scooting+ Supervision Assist of: 1 Transfers- Sit < > Stand+ Contact Guard Assist Assist of: 1 Device+ NONE Bed < > Chair+ Contact Guard Assist Assist of: 1 Device+ Rolling Walker Toilet/Commode+ Assist of: Device+ Device(s)+ Gait- Steady: N Assist of: 1 Rolling Walker Distance (ft): 150 Level of assist+ Contact Guard Assist Description: Pt ABLE TO TAKE SEVERAL STEPS W/OUT AD W/ INCREASED GUARDING AND SLOW MONROE, WIDE SEGUNDO. PROVIDED RW W/ IMPROVED [place]RO[place], CUES TO INCREASE AWARENESS OF L SIDE 2/2 L INATTENTION AND BUMPING INTO OBJECTS ON L SIDE. UNSTEADY WITH TURNING LEFT, REQUIRING CGA AND CUES. DIFFICULTY SEQUENCING TO TURN TO SIT AT EOB S/P GAIT, REQUIRING CUES. Pg 1/3 Stairs- # Done: # of Railings: Device(s)+ Level of Assist+ Description+ Balance- Sitting+ Standing- Static+ Dynamic+ Good Fair Fair Note W/ RW IN STANCE Neuro Re-education: NORMAL SEGUNDO EYES OPEN AND EYES CLOSED W/OUT UE SUPPORT, INCREASED LATERAL SWAY W/ EYES CLOSED REQUIRING CGA Exercise: Endurance- WNL: N Note (+)FATIGUE 2/2 "BUSY MORNING" Pt WISHED TO RETURN TO BED. VSS-RA Pre TX Vitals- Pulse: SPO2: Post TX Vitals- Pulse: SPO2: B/P: Amt O2: B/P: Amt O2: Acute Care Level of Mobile Scale+ Outcome Measures: Assessment: Pt TOLERATED SESSION WELL. SHE CONTINUES TO PRESENT WITH GAIT DEVIATIONS AND L INATTENTION. Pt WOULD BENEFIT FROM CONTINUED PT AND AR UPON D /C TO BEST ADDRESS IMPAIRMENTS AND MAXIMIZE FUNCTIONAL INDEPENDENCE. Plan: CONT TOLERATED OT Consult Recommended Set up after TX: SITTING AT EOB W/ AND MDs PRESENT, NEEDS IN REACH Discharge Plan+ Acute Rehab Equipment Needs+ Problem+ Goal (Expected Outcome)+ Progress+ Target Date Activity Assist of 1 : Activity at approp level : CONT PLAN : Note Pg 3/3 *OCCUPATIONAL THERAPY TREATMENT Subjective PT RECEIVED IN SUPINE IN BED, PT MOTIVATED TO PARTICIPATE WITH OT. PT AND STATES SHE IS USING HER LUE MORE DURING ACTIVITIES. Objective SUPERVISON FOR SUPINE TO SIT WITH EOB ELEVATED, PT ABLE TO SCOOT TO EOB WITH HOB FLAT. PT WITH IMPAIRED PROCESSING AND SEQUENCING SKILLS, REQURED CUE FOR INITIATION OF MOTOR MOVEMENT/PLANNING DURING SIT TO STAND. WITH CG ASSIST FACILITED LUE PLACEMENT ON BEDRAIL, VERBAL CUES FOR PT TO PUSH UP FROM BED WITH RUE. PT AMBULATED STEPS FROM BED TO CHAIR, MIN ASSIST X1 WITH RW. PT WITH NARROW BASE OF SUPPORT AND SHORT STEPS, NO LOB SEATED THEREX:TABLE TOP AAROM WITH PILLOWCASE UNDER PT'S B/L FOREARMS B/L SHOULDER INTERNAL ROTATION/EXTERNAL ROTATION X10. PT EDUCATED ON TECH TABLE TOP AAROM B/L ELBOW EXT/FLEX X10; TABLE TOP SEATED WEIGHT BEARING ON FOREARMS ON TOP OF A TOWEL/PILLOW SIDE TO SIDE X10 WITH 5 SECOND HOLD ON SIDE WEIGHT SHIFT TO. PT TOLERATED WELL. PT AND RN PROVIDED WITH WRITTEN COPY OF HEP FOR APPROPRIATE CARRYOVER. PT SITTING IN CHAIR, ALARM EDGE GRINDER MCQUEEN AND ALL CARE IN REACH. PT'S WITH PT. PT AND EDUCATED TO ONLY PERFORM HEP WHEN IS PRESENT. PT EDUCATED TO VIEW LEFT SIDE/LUE T/O. PT AND EDUCATED ON SCANNING TECHNIQUES Acute Care Level of Mobile Scale+ Min Assist (40-59%) Assessment PT IS S/P CVA WITH LUE WEAKNESS, INCOORDINATION, LEFT VISUAL FIELD NEGLECT IMPAIRED PROCESSING AND MOTOR PLANNING SKILLS, DYSARTHRIA, IMPAIRED BALANCE AND ENDURANCE. PT'S DEFICITS DECREASES HER INDEPENDENCE WITH ADL AND MOBILITY FROM HER BASELINE. PT CONTINUES TO BENEFIT FROM ACUTE SKILLED OT IN ORDER TO MAXIMIZE FUNCTION. ACUTE REHAB RECOMMENDED WHEN CLEARED FOR DC. 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
--- NOTE | 2016-07-28 14:27 | ECHOCARDIOGRAM REPORT ---
LM HINKLE Age: 56 : Gender: F Exam Date: 07/27/2016 09:57 Exam Location: 1 [facility] Ht (in): 65 Wt (lb): 136 BSA: 1.69 BP: 142 / 80 Ordering Physician: ALEYDA SCHREIBER MD Referring Physician: ALEYDA SCHREIBER MD Technologist: Clay Thomas [facility] Room Number: 189-2 Indications: SOURCE OF EMBOLUS Rhythm: Technical Quality: Good Medications Ease of Transducer Insertion No Difficulty Complications None Technical Difficulty None FINDINGS Left Ventricle Normal LV chamber size, wall thickness and systolic function. The estimated LVEF is 60%, without focal wall motion abnormalities. Right Ventricle Normal RV structure and function Right Atrium Normal RA Left Atrium Mildly dilated LA size LA Appendage No thrombus seen in the left atrial appendage or on the left atrial calderon IA Septum No ASD/PFO by agitated saline injection Mitral Valve Mildly thickened mitral leaflet tips. There is a small mobile echodensity seen, c/w a torn chord. There is bowing of the anterior leaflet without prolapse. There is moderate MR. Aortic Valve Mildly thickened and calcified Aortic valve leaflets with normal opening. There is mild AI Tricuspid Valve Grossly normal tricuspid valve leaflets, structure and function. There is mild TR. Pulmonic Valve Normal pulmonic valve leaflets, and function. Pericardium Normal pericardium Great Vessels Normal ascending Aorta and root CONCLUSIONS Normal LV chamber size, wall thickness and systolic function. The estimated LVEF is 60%, without focal wall motion abnormalities. No thrombus seen in the left atrial appendage or on the left atrial calderon. No ASD/PFO by agitated saline injection. Mildly thickened mitral leaflet tips. There is a small mobile echodensity seen, c/w a torn chord. There is bowing of the anterior leaflet without prolapse. There is moderate MR. Margarito Lynn M.D. (Electronically Signed) Final Date: 28 July 2016 14:26 MEASUREMENTS (Male / Female) Normal Values
[2016-07-28 15:30] VITALS: BP 130/80
--- NOTE | 2016-07-28 17:28 | PN- Housestaff ---
Subjective Follow-up For: CVA Tele-Events Since Last Visit: off monitor Subjective: Patient was seen and examined this morning, no overnight events reported by the patient or the nurses. No acute distress, vital signs are stable. Review of Systems Constitutional: Reports: no symptoms. Objective Last 24 Hrs of Vital Signs/I&O Vital Signs Date Time Temp Pulse Resp B/P Pulse O2 O2 Flow FiO2 Ox Delivery Rate 07/28 1530 98.2 82 18 130/80 98 Room Air 07/28 0931 85 132/78 07/28 0822 98.6 85 18 132/78 98 Room Air 07/28 0040 98.9 84 20 140/80 96 Room Air Intake & Output 07/28 1600 07/28 0800 07/28 0000 Intake Total 560 120 240 Output Total 450 400 Balance 560 -330 -160 Intake, Oral 560 120 240 Number 1 Bowel Movements Output, Urine 450 400 Patient 61.689 kg Weight Physical Exam General Appearance: Alert, Oriented X3, Cooperative, No Acute Distress Skin: No Rashes, No Breakdown, No Significant Lesion HEENT: Atraumatic, PERRLA, EOMI, Mucous Membr. moist/pink Neck: Supple, No JVD Cardiovascular: Regular Rate, Normal S1, Normal S2, No Murmurs Lungs: Clear to Auscultation, Normal Air Movement Abdomen: Normal Bowel Sounds, Soft, No Tenderness, No Hepatospenomegaly Neurological: Normal Speech, Normal Tone, Sensation Intact, Cranial Nerves 3-12 NL, brisk reflexes bilateral motor left side 4/5 Extremities: No Clubbing, No Cyanosis, No Edema, Normal Pulses Assessment/Plan Assessment: 56-year-old lady with a PMH of chronic headaches (??migraines) managed with amitriptyline 10 mg daily who presents with complaints of two-week duration progressive weakness, imbalance, confusion and new onset palpitations. VS on admission: BP 110/75, HR 170, RR 20, SPO2 99% on RA, T 99.6 Labs: WBC 14.8, 90% bandemia. H&H 8.7/26.5, platelets 78, chloride 109, bicarbonate 18, BUN/CR 34/1.4 Troponin: 0.30 TSH: 7.[address] as indicated above Problem list: 1. AMS: Infectious etiology versus progressive vascular insufficiency 2. Narrow complex tachycardia 3. Elevated troponins 4. SIRS criteria 5. Anemia 6. Thrombocytopenia 7. Acute kidney injury 8. Elevated TSH Plan: 1. CVA * CT head without contrast 07/23 No acute intracranial pathology. Progressive moderate generalized volume loss relative to the prior available study of 2005. Chronic appearing lacunar infarcts are present within the left thalamus and right cerebellar hemisphere, which have developed in the interim since 2005. Small areas of encephalomalacia and gliosis in the high frontal lobes bilaterally have also developed in the interim since the prior study. * MRI brain without YESENIA 07/25 - Multiple acute to subacute infarcts within the right occipital lobe, the right periventricular white matter posteriorly, the left middle frontal gyrus, and possibly the left parietal postcentral gyrus. - Chronic infarcts within the right occipital lobe, the left thalamus, the cerebellar hemispheres, and the parietal post central gyri bilaterally. Moderate chronic microangiopathy and global cerebral volume loss that is greatest within the parietal lobes bilaterally. * Carotid Doppler ultrasound 07/24 No hemodynamically significant stenosis in either carotid arteries. Normal antegrade flow seen in both vertebral arteries. * Echocardiogram with bubble study to exclude PFO 07/26 Hyperdynamic left ventricular systolic function. Probably severe posteriorly directed Mitral regurgitation .Increased echogenicity noted on the Anterior Mitral leaflet. Torn chord,vegetation may be considered. Would suggest a JORJE to better delineate Mitral Valve pathology and evaluate for cardioembolic source as bubble study was suboptimal. Moderate Pulmonary hypertension. * JORJE 07/27/16 Normal LV chamber size, wall thickness and systolic function. The estimated LVEF is 60%, without focal wall motion abnormalities. No thrombus seen in the left atrial appendage or on the left atrial calderon. No ASD/PFO by agitated saline injection. Mildly thickened mitral leaflet tips. There is a small mobile echodensity seen, c/w a torn chord. There is bowing of the anterior leaflet without prolapse. There is moderate MR. * Neurology consultation was placed Dr. Shelby * Keep systolic blood pressure less than 140 * Continue Neurochecks Q2hrs * Continue atorvastatin 40 mg daily * Continue aspirin 81 mg daily * Lipid panel within normal limits * Orthostatic measurement on 07/24 is negative * ISMAEL is positive * Rheumatology consultation * Lyme negative * ESR 128 high * Infectious cause such as HIV, hepatitis are negative * blood Cx pending, urine cultures no growth to date 2. Narrow complex tachycardia * Unclear etiology of her palpitations at this time. DDX: Hypothyroidism vs infectious source * Patient did receive single dose of adenosine with noticeable prolonged pause, Lopressor 5 mg IV 1 * Cardiology consultation was obtained, eitology could be AVNRT * Continue metoprolol succinate to 50 mg daily * Patient is off telemetry * Patient will be instructed to follow up with cardiology as an outpatient father cardiac workup 3. Elevated troponins * Troponin is trending down. Likely secondary to prolonged narrow complex tachycardia. However, in the setting of two-week duration generalized weakness, fatigue, difficulty w/ ambulation, will trend troponins and EKG (2200, 0400) 4. Pancytopenia * Unclear etiology at this time * Hematology consultation was obtained * Could be nutritional, infection, inflammatory * Peripheral smear was ordered, showed anisocytosis and poikilocytosis but no schistocytes * Lactate dehydrogenase is elevated but no elevated bilirubin * Lupus workup was ordered * Serum iron level is 19, TIBC 328, ferretin 25 * Start ferritin sulfate 325 3 times a day * Guaiac stools negative * Reticulocyte count 2.72 * Absoulute reticulocyte count 1.7 * Continue hold amitriptaline 5. Acute kidney injury * Patient received 1 bolus normal saline * BUN/creatinine 28/1.2 stable 6. Elevated TSH * Synthroid 25 mg daily * TSH 7.46, free T4 1.73 7. Diet: * Heart healthy 8. DVT prophylaxis * ALPs 9. CODE STATUS * Full code Consultation cardiology, neurology, hematology, PT, OT, rheumatology Problem List: 1. CVA (cerebral vascular accident) 2. REN (acute kidney injury) 3. Thrombocytopenia 4. Anemia 5. Lacunar infarction Pain Ratin Pain Location: N/A Pain Goal: Pain 4 or less Pain Plan: Mild pain pathway Tomorrow's Labs & Rationales: CBc, CMP Consulting Request: Consulting Specialty: Neurology Consulting Physician:
--- NOTE | 2016-07-28 17:54 | Cons- Rheumatology ---
General Information and HPI Consulting Request Date of Consult: 07/28/16 Requested By: YAYO MADDEN MD Reason for Consult: Evaluate for possible vasculitis Source of Information: patient, family Exam Limitations: no limitations History of Present Illness: This is a 56-year-old female with a history of long-standing headaches who was admitted to the hospital o tests. She was found on MRI to have multiple small acute to subacute embolic infarcts located in the right occipital lobe, the right periventricular white matter posteriorly, the left middle frontal gyrus, and possibly the left parietal postcentral gyrus. MRA of the head revealed were arborization of the right middle cerebral artery branches compared to the left. There is also on her report of moderate chronic microangiopathy . She apparently a week prior to admission has had some difficulty with balance as well leading to this neurologic workup. Other laboratory tests revealed a profound anemia with a hematocrit of 25.8 with hypochromic microcytic indices. Her platelets are borderline low at 143,000. Her white count was normal at 6700 there were 7 bands and 14 lymphs described. Westergren sedimentation rate was markedly elevated at 128 her ISMAEL is positive at a titer of 1-160. Symptomatically the patient denies previous history of DVTs, she denies fevers rashes or joint pains. She has no history of miscarriages or embolic phenomenon she also has no temporal artery tenderness or jaw claudication or PMR symptoms. Allergies/Medications Allergies: Coded Allergies: No Known Allergies (07/23/16) Home Med List: Amitriptyline HCl 10 MG TABLET 1 TAB PO QPM DIRECTED (Reported) Review of Systems Review of Systems: See HPI Past History Travel History Traveled to [place] past 21 day No Medical History Neurological: CHRONIC HEADACHES EENT: NONE Cardiovascular: NONE Respiratory: NONE Gastrointestinal: NONE Hepatic: NONE Renal: NONE Musculoskeletal: NONE Psychiatric: NONE Endocrine: NONE Blood Disorders: NONE Cancer(s): NONE SUSTAINABLE LANDSCAPE ARCHITECT/Reproductive: NONE Surgical History Surgical History: non-contributory Psychosocial History Where Do You Live? Home Who Do You Live With? spouse Services at Home: None Primary Language: Italian Smoking Status: Never Smoked ETOH Use: occasional use Illicit Drug Use: denies illicit drug use Other Social History: Spouse is retired from [employer]. They have no children. The patient has several siblings who live in the [facility] Functional Ability ADLs Independent: dressing (prior to stroke), eating, toileting, bathing. Ambulation: independent (prior to stroke) IADLs Independent: shopping (prior to stroke), housework, finances, food prep, telephone, transportation, medication admin. 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 Exam & Diagnostic Data Vital Signs and I&O Vital Signs Date Time Temp Pulse Resp B/P Pulse O2 O2 Flow FiO2 Ox Delivery Rate 07/28 1530 98.2 82 18 130/80 98 Room Air 07/28 0931 85 132/78 07/28 0822 98.6 85 18 132/78 98 Room Air 07/28 0040 98.9 84 20 140/80 96 Room Air Intake & Output 07/28 1600 07/28 0800 07/28 0000 Intake Total 560 120 240 Output Total 450 400 Balance 560 -330 -160 Intake, Oral 560 120 240 Number 1 Bowel Movements Output, Urine 450 400 Patient 136 lb Weight Physical Exam: On examination she is a well-developed well-nourished alert female there is no scalp tenderness or induration of her temporal arteries. Her hands wrists elbows shoulders knees and ankles all have full range of motion without any swelling or tenderness. Examination of her skin does not reveal any cutaneous signs of vasculitis such as periungual erythema, palmar erythema, or livedo reticularis. She is fully able to raise her legs and raise her arms above her head. Assessment/Plan Assessment: Obviously the finding of multiple infarcts on her MRI is disturbing. Apparently a workup has not revealed any vegetations on her heart valves. However there is no description of the blood vessels in the MRA that sounds suspicious for a vasculitis which is often diagnosed angiographically. 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 The ISMAEL is of interest as well certainly although she has no other clinical signs of SLE. The anemia is quite disturbing as well I believe a malignancy needs to be ruled out differential diagnosis of multiple cerebral lesions is wide. Recommendations: I recommend first of all a lumbar puncture with fluid to be sent for culture and cytology and protein. Also a cell count is obviously indicated I would also obtain anti-DNA antibodies anti-ALANNA antibodies C3 and C4 levels, and AnCA, and anti-cardiolipn antibodies. These could be drawn and the patient could be discharged but I strongly feel to properly work this up and LP should be done in the morning. Consult Acknowledgment - Thank you for your consult request.
[2016-07-28 23:54] VITALS: BP 130/82
--- NOTE | 2016-07-29 07:15 | PN- Housestaff ---
Subjective Follow-up For: CVA Tele-Events Since Last Visit: Off monitor Subjective: Patient was seen and examined this morning, vital signs are stable, no overnight events reported by the patient or the nurses. Patient has some headache this morning, denied nausea, vomiting. She had good sleep and had breakfast without any problems. She had bowel movement this morning. Denied any weakness, tremors, dizziness, blurred vision, rash, joint or muscle pain. Review of Systems Constitutional: Reports: see HPI. Objective Last 24 Hrs of Vital Signs/I&O Vital Signs Date Time Temp Pulse Resp B/P Pulse O2 O2 Flow FiO2 Ox Delivery Rate 07/29 1636 98.6 79 16 131/59 96 Room Air 07/29 0922 132/70 07/28 2354 98.3 82 18 130/82 96 Room Air Intake & Output 07/29 1600 07/29 0800 07/29 0000 Intake Total 400 50 600 Output Total 600 Balance -200 50 600 Intake, Oral 400 50 600 Number 1 Bowel Movements Output, Urine 600 Physical Exam General Appearance: Alert, Oriented X3, Cooperative, No Acute Distress Skin: No Rashes, No Breakdown, No Significant Lesion HEENT: Atraumatic, PERRLA, EOMI, Mucous Membr. moist/pink Neck: Supple Cardiovascular: Regular Rate, Normal S1, Normal S2, No Murmurs Lungs: Clear to Auscultation, Normal Air Movement Abdomen: Normal Bowel Sounds, Soft, No Tenderness Neurological: Normal Speech, Normal Tone, Sensation Intact, Cranial Nerves 3-12 NL, motor left side 4/5, right 5/5 Brisk reflex left side Extremities: No Clubbing, No Cyanosis, No Edema Assessment/Plan Assessment: 56-year-old lady with a PMH of chronic headaches (??migraines) managed with amitriptyline 10 mg daily who presents with complaints of two-week duration progressive weakness, imbalance, confusion and new onset palpitations. VS on admission: BP 110/75, HR 170, RR 20, SPO2 99% on RA, T 99.6 Labs: WBC 14.8, 90% bandemia. H&H 8.7/26.5, platelets 78, chloride 109, bicarbonate 18, BUN/CR 34/1.4 Troponin: 0.30 TSH: 7.[address] as indicated above Problem list: 1. AMS: Infectious etiology versus progressive vascular insufficiency 2. Narrow complex tachycardia 3. Elevated troponins 4. SIRS criteria 5. Anemia 6. Thrombocytopenia 7. Acute kidney injury 8. Elevated TSH Plan: 1. CVA * CT head without contrast 07/23 No acute intracranial pathology. Progressive moderate generalized volume loss relative to the prior available study of 2005. Chronic appearing lacunar infarcts are present within the left thalamus and right cerebellar hemisphere, which have developed in the interim since 2005. Small areas of encephalomalacia and gliosis in the high frontal lobes bilaterally have also developed in the interim since the prior study. * MRI brain without YESENIA 07/25 - Multiple acute to subacute infarcts within the right occipital lobe, the right periventricular white matter posteriorly, the left middle frontal gyrus, and possibly the left parietal postcentral gyrus. - Chronic infarcts within the right occipital lobe, the left thalamus, the cerebellar hemispheres, and the parietal post central gyri bilaterally. Moderate chronic microangiopathy and global cerebral volume loss that is greatest within the parietal lobes bilaterally. * Carotid Doppler ultrasound 07/24 No hemodynamically significant stenosis in either carotid arteries. Normal antegrade flow seen in both vertebral arteries. * Echocardiogram with bubble study to exclude PFO 07/26 Hyperdynamic left ventricular systolic function. Probably severe posteriorly directed Mitral regurgitation .Increased echogenicity noted on the Anterior Mitral leaflet. Torn chord,vegetation may be considered. Would suggest a JORJE to better delineate Mitral Valve pathology and evaluate for cardioembolic source as bubble study was suboptimal. Moderate Pulmonary hypertension. * JORJE 07/27/16 Normal LV chamber size, wall thickness and systolic function. The estimated LVEF is 60%, without focal wall motion abnormalities. No thrombus seen in the left atrial appendage or on the left atrial calderon. No ASD/PFO by agitated saline injection. Mildly thickened mitral leaflet tips. There is a small mobile echodensity seen, c/w a torn chord. There is bowing of the anterior leaflet without prolapse. There is moderate MR. * Neurology consultation was placed Dr. Shelby * Keep systolic blood pressure less than 140 * Continue Neurochecks Q2hrs * Continue atorvastatin 40 mg daily * Continue aspirin 81 mg daily * Lipid panel within normal limits * Orthostatic measurement on 07/24 is negative * ISMAEL is positive * ANCA is negative * Lyme negative * ESR 128 high * Infectious cause such as HIV, hepatitis are negative * Rheumatology consultation was obtained, thanks for the recommendation * Recommendation to obtain anti-DNA antibodies anti-ALANNA antibodies C3 and C4 levels, and anti-cardiolipn antibodies * LP preformed today * Body fluid cytology, culture Gram stain, glucose, protein, were ordered * blood Cx pending, urine cultures no growth to date 2. Narrow complex tachycardia * Unclear etiology of her palpitations at this time. DDX: Hypothyroidism vs infectious source * Patient did receive single dose of adenosine with noticeable prolonged pause, Lopressor 5 mg IV 1 * Cardiology consultation was obtained, eitology could be AVNRT * Continue metoprolol succinate to 50 mg daily * Patient is off telemetry * Patient will be instructed to follow up with cardiology as an outpatient father cardiac workup 3. Elevated troponins * Troponin is trending down. Likely secondary to prolonged narrow complex tachycardia. However, in the setting of two-week duration generalized weakness, fatigue, difficulty w/ ambulation, will trend troponins and EKG (2200, 0400) 4. Pancytopenia * Unclear etiology at this time * Hematology consultation was obtained * Could be nutritional, infection, inflammatory * Peripheral smear was ordered, showed anisocytosis and poikilocytosis but no schistocytes * Lactate dehydrogenase is elevated but no elevated bilirubin * Guaiac stools negative * Serum iron level is 19, TIBC 328, ferretin 25 * Continue ferritin sulfate 325 3 times a day * Reticulocyte count 2.72 * Absoulute reticulocyte count 1.7 * Continue to hold amitriptaline 5. Acute kidney injury * Patient received 1 bolus normal saline * BUN/creatinine 26/1.2 stable 6. Elevated TSH * Synthroid 25 mg daily * TSH 7.46, free T4 1.73 7. Diet: * Heart healthy 8. DVT prophylaxis * ALPs 9. CODE STATUS * Full code Consultation cardiology, neurology, hematology, PT, OT, rheumatology Patient will be discharged to acute short-term rehabilitation Problem List: 1. CVA (cerebral vascular accident) 2. REN (acute kidney injury) 3. Anemia 4. Thrombocytopenia Pain Ratin Pain Location: N/A Pain Goal: Pain 4 or less Pain Plan: Mild pain pathway Tomorrow's Labs & Rationales: CBC, CMP Consulting Request: Consulting Specialty: Neurology Consulting Physician:
[2016-07-29 08:03] LABS: ABSOLUTE BASOPHIL COUNT 0 /CUMM (0.0-0.2); ABSOLUTE EOSINOPHIL COUNT 0.2 /CUMM (0.0-0.7); ABSOLUTE GRANULOCYTE CT 4.7 /CUMM (1.4-6.5); ABSOLUTE LYMPH COUNT 0.9 /CUMM (1.2-3.4); ABSOLUTE MONOCYTE COUNT 0.4 /CUMM (0.10-0.60); BASOPHIL % 0.4 % (0.0-2.0); EOSINOPHIL % 2.9 % (0-5); GRANULOCYTE % 75.4 % (42.2-75.2); MEAN CORPUSCULAR HGB 24.1 PG (27.0-31.0); MEAN CORPUSCULAR HGB CONC 32.3 G/DL (33.0-37.0); MEAN CORPUSCULAR VOLUME 74.6 FL (81.0-99.0); MEAN PLATELET VOLUME 11.6 FL (7.4-10.4); PLATELET COUNT 117 /CUMM (130-400); RBC DISTRIBUTION WIDTH 16.2 % (11.5-14.5); RED BLOOD CELL CT 3.22 /CUMM (4.20-5.40); WHITE BLOOD CELL COUNT 6.3 /CUMM (4.8-10.8)
--- NOTE | 2016-07-29 08:32 | PN- Rheumatology ---
Subjective Subjective: The patient has no new complaints today. He has no arthralgias fever or rashes. Apparently she is still quite unsteady on her feet. The question arises as to whether she can be discharged home or to a rehabilitation facility. Objective Vital Signs and I&Os Vital Signs Date Time Temp Pulse Resp B/P Pulse O2 O2 Flow FiO2 Ox Delivery Rate 07/28 2354 98.3 82 18 130/82 96 Room Air 07/28 1530 98.2 82 18 130/80 98 Room Air 07/28 0931 85 132/78 Intake & Output 07/29 1600 07/29 0800 07/29 0000 07/28 1600 07/28 0800 07/28 0000 Intake Total 50 600 560 120 240 Output Total 450 400 Balance 50 600 560 -330 -160 Intake, Oral 50 600 560 120 240 Number 1 Bowel Movements Output, Urine 450 400 Patient 136 lb Weight Physical Exam: Again her physical exam is unremarkable from the rheumatologic perspective. Current Medications: Current Medications Sig/Cathi Start time Last Medication Dose Route Stop Time Status Admin Acetaminophen 650 MG Q6P PRN 07/23 1815 AC PO Aspirin 81 MG DAILY 07/24 1200 AC 07/28 PO 0931 Atorvastatin Calcium 40 MG 1700 07/24 1700 AC 07/28 PO 1811 Ferrous Sulfate 325 MG TID 07/25 2200 AC 07/28 PO 2118 Levothyroxine Sodium 0.025 MG DAILY AC 07/24 1457 AC 07/29 PO 0705 Metoprolol Succinate 50 MG DAILY 07/26 1000 AC 07/28 PO 0931 Oxycodone/ 1 TAB Q6P PRN 07/23 1815 AC Acetaminophen PO Oxycodone/ 2 TAB Q6P PRN 07/23 1815 AC Acetaminophen PO Patient Medication 1 ED .STK-MED ONE 07/28 1322 [facility] ED 07/28 1323 Assessment/Plan Assessment: Multiple cerebral infarctions in the setting of anemia and a very high sedimentation rate. Vasculitis is still a possibility as well as an occult malignancy. Plan: Again I feel the patient needs a spinal tap. I would also suggest a PT, PTT, and anti-cardiolipin antibodies as well as a lupus anticoagulant since she is not on heparin. The question as to disposition must be made amongst her primary care physician and physical therapy. From my perspective the patient needs not to be an acute care facility
--- NOTE | 2016-07-29 09:23 | PN- Att Addend ---
Attending Addendum Attending Brief Note Patient has no complaints General Appearance: Alert, No Acute Distress Skin: Grossly normal HEENT: PEERLA Neck: Supple, No JVD Cardiovascular: Regular Rate, Normal S1, Normal S2, No Murmurs Lungs: Clear to Auscultation, Normal Air Movement Abdomen: Normal Bowel Sounds, Soft, No Tenderness Neurological: Left-sided weakness both upper and lower extremity, exaggerated reflexes all 4 extremities, upgoing plantar left-sided, left hemisphere visual field defect Extremities: No Clubbing, No Cyanosis, No Edema Vascular: Normal Pulses Assessment Left-sided CVA involving right thalamus and left cerebellar. MRA suggests narrowing of posterior cerebral artery raising concerns for possible underlying vasculitis and lupus. Currently workup for lupus and vasculitis is nonconclusive. Transthoracic echo with bubble study was nonconclusive, which was followed by a transesophageal echocardiogram that was unremarkable. High suspicion for underlying vasculitis. Appreciate hematology input. Recommendations are for inpatient lumbar puncture. We will get the procedure done today and discharge. We'll follow-up as outpatient. Plan Lumbar puncture Continue aspirin and statin Iron supplement levothyroxine 25 g once daily Discontinue amitriptyline DVT prophylaxis PT and OT evaluation Speech evaluation Current Medications Sig/Cathi Start time Last Medication Dose Route Stop Time Status Admin Acetaminophen 650 MG Q6P PRN 07/23 1815 AC PO Aspirin 81 MG DAILY 07/24 1200 AC 07/28 PO 0931 Atorvastatin Calcium 40 MG 1700 07/24 1700 AC 07/28 PO 1811 Ferrous Sulfate 325 MG TID 07/25 2200 AC 07/28 PO 2118 Levothyroxine Sodium 0.025 MG DAILY AC 07/24 1457 AC 07/29 PO 0705 Metoprolol Succinate 50 MG DAILY 07/26 1000 AC 07/28 PO 0931 Oxycodone/ 1 TAB Q6P PRN 07/23 1815 AC Acetaminophen PO Oxycodone/ 2 TAB Q6P PRN 07/23 1815 AC Acetaminophen PO Patient Medication 1 ED .STK-MED ONE 07/28 1322 [facility] 07/28 1323 Laboratory Tests 07/29 0640 Chemistry Sodium (137 - 145 mmol/L) 142 Potassium (3.5 - 5.1 mmol/L) 4.1 Chloride (98 - 107 mmol/L) 110 H Carbon Dioxide (22 - 30 mmol/L) 22 Anion Gap (5 - 16) 10 BUN (7 - 17 mg/dL) 26 H Creatinine (0.5 - 1.0 mg/dL) 1.2 H Estimated GFR (>60 ml/min) 46 L BUN/Creatinine Ratio (7 - 25 %) 21.7 Hematology CBC w Diff MAN DIFF ORDERED WBC (4.8 - 10.8 /CUMM) 6.3 RBC (4.20 - 5.40 /CUMM) 3.22 L Hgb (12.0 - 16.0 G/DL) 7.8 L Hct (37 - 47 %) 24.0 L MCV (81.0 - 99.0 FL) 74.6 L MCH (27.0 - 31.0 PG) 24.1 L RDW (11.5 - 14.5 %) 16.2 H Plt Count (130 - 400 /CUMM) 117 L MPV (7.4 - 10.4 FL) 11.6 H Gran % (42.2 - 75.2 %) 75.4 H Lymphocytes % (20.5 - 51.1 %) 15.1 L Monocytes % (1.7 - 9.3 %) 6.2 Eosinophils % (0 - 5 %) 2.9 Basophils % (0.0 - 2.0 %) 0.4 Absolute Granulocytes (1.4 - 6.5 /CUMM) 4.7 Segmented Neutrophils (42.2 - 75.2 %) 75 Band Neutrophils (0.0 - 5.0 %) 1 Absolute Lymphocytes (1.2 - 3.4 /CUMM) 0.9 L Lymphocytes (20.5 - 51.1 %) 15 L Monocytes (1.7 - 9.3 %) 4 Absolute Monocytes (0.10 - 0.60 /CUMM) 0.4 Eosinophils (0 - 5.0 %) 5 Absolute Eosinophils (0.0 - 0.7 /CUMM) 0.2 Absolute Basophils (0.0 - 0.2 /CUMM) 0 Platelet Estimate (ADEQUATE) DECREASED Hypochromic-Microcytic 1+ Poikilocytosis 2+ Anisocytosis 2+ Ovalocytes 2+ PUBS MCHC (33.0 - 37.0 G/DL) 32.3 L Vital Signs Date Time Temp Pulse Resp B/P Pulse O2 O2 Flow FiO2 Ox Delivery Rate 07/28 2354 98.3 82 18 130/82 96 Room Air 07/28 1530 98.2 82 18 130/80 98 Room Air 07/28 930 85 132/78
--- NOTE | 2016-07-29 09:36 | PN- Hematology ---
Subjective Subjective: She denies any new symptoms. She denies any confusion, headaches, dizziness, weakness, numbness, or loss of sensation. Review of Systems: EENTM: Denies: changes in vision. Cardiovascular: Denies: chest pain. Respiratory: Denies: short of breath. Gastrointestinal: Denies: abdominal pain. Genitourinary: Denies: hematuria. Skin: Denies: rash. Neurological/Psychological: Denies: anxiety, confusion. All Other Systems: Reviewed and Negative Objective Vital Signs and I&Os Vital Signs Date Time Temp Pulse Resp B/P Pulse O2 O2 Flow FiO2 Ox Delivery Rate 07/28 2354 98.3 82 18 130/82 96 Room Air 07/28 1530 98.2 82 18 130/80 98 Room Air 07/28 0931 85 132/78 Intake & Output 07/29 1600 07/29 0800 07/29 0000 07/28 1600 07/28 0800 07/28 0000 Intake Total 50 600 560 120 240 Output Total 450 400 Balance 50 600 560 -330 -160 Intake, Oral 50 600 560 120 240 Number 1 Bowel Movements Output, Urine 450 400 Patient 61.689 kg Weight Physical Exam: General Appearance: alert, awake, comfortable Respiratory: normal breath sounds, chest non-tender Cardiovascular: regular rate/rhythm Abdomen: normal bowel sounds, soft, non-tender Extremities: normal inspection, no edema. Neurologic/Psychiatric: alert, oriented x 3. Strength intake. Speech is slowed. Skin: No rash. No bruising. Current Medications: Current Medications Sig/Cathi Start time Last Medication Dose Route Stop Time Status Admin Acetaminophen 650 MG Q6P PRN 07/23 1815 AC PO Aspirin 81 MG DAILY 07/24 1200 AC 07/28 PO 0931 Atorvastatin Calcium 40 MG 1700 07/24 1700 AC 07/28 PO 1811 Ferrous Sulfate 325 MG TID 07/25 2200 AC 07/28 PO 2118 Levothyroxine Sodium 0.025 MG DAILY AC 07/24 1457 AC 07/29 PO 0705 Metoprolol Succinate 50 MG DAILY 07/26 1000 AC 07/28 PO 0931 Oxycodone/ 1 TAB Q6P PRN 07/23 1815 AC Acetaminophen PO Oxycodone/ 2 TAB Q6P PRN 07/23 1815 AC Acetaminophen PO Patient Medication 1 ED .STK-MED ONE 07/28 1322 [place] Teaching ED 07/28 1323 Results Last 24 Hours of Lab Results: Laboratory Tests 07/29 0640 Chemistry Sodium (137 - 145 mmol/L) 142 Potassium (3.5 - 5.1 mmol/L) 4.1 Chloride (98 - 107 mmol/L) 110 H Carbon Dioxide (22 - 30 mmol/L) 22 Anion Gap (5 - 16) 10 BUN (7 - 17 mg/dL) 26 H Creatinine (0.5 - 1.0 mg/dL) 1.2 H Estimated GFR (>60 ml/min) 46 L BUN/Creatinine Ratio (7 - 25 %) 21.7 Hematology CBC w Diff MAN DIFF ORDERED WBC (4.8 - 10.8 /CUMM) Pending RBC (4.20 - 5.40 /CUMM) Pending Hgb (12.0 - 16.0 G/DL) Pending Hct (37 - 47 %) Pending MCV (81.0 - 99.0 FL) Pending MCH (27.0 - 31.0 PG) Pending RDW (11.5 - 14.5 %) Pending Plt Count (130 - 400 /CUMM) Pending MPV (7.4 - 10.4 FL) Pending Gran % (42.2 - 75.2 %) Pending Lymphocytes % (20.5 - 51.1 %) Pending Monocytes % (1.7 - 9.3 %) Pending Eosinophils % (0 - 5 %) Pending Basophils % (0.0 - 2.0 %) Pending Absolute Granulocytes (1.4 - 6.5 /CUMM) Pending Segmented Neutrophils (42.2 - 75.2 %) Pending Absolute Lymphocytes (1.2 - 3.4 /CUMM) Pending Absolute Monocytes (0.10 - 0.60 /CUMM) Pending Absolute Eosinophils (0.0 - 0.7 /CUMM) Pending Absolute Basophils (0.0 - 0.2 /CUMM) Pending PUBS MCHC (33.0 - 37.0 G/DL) Pending Recent Imaging Studies: TTE 07/27/2016: Normal LV chamber size, wall thickness and systolic function. The estimated LVEF is 60%, without focal wall motion abnormalities. No thrombus seen in the left atrial appendage or on the left atrial calderon. No ASD/PFO by agitated saline injection. Mildly thickened mitral leaflet tips. There is a small mobile echodensity seen, c/w a torn chord. There is bowing of the anterior leaflet without prolapse. There is moderate MR. Assessment/Plan Assessment/Recommendations: Ms. Petty is a 56-year-old female with chronic headaches who presented with new palpitation, confusion, anemia, and thrombocytopenia. Thrombocytopenia has improved. JORJE demonstrated no thrombus but did demonstrate a small mobile echodensity consistent with torn chord. She had a positive ISMAEL. ANCA is negative. Western blot for Lyme is negative. She is still anemic. Reticulocyte count have not improved much yet. CVA is concerning for vasculitis etiology. Dr. Toledo of rheumotology is seeing the patient. Further work up is being done to evaluate for underlying rheumatologic disorder. He also concerned about intracranial malignancy and recommend LP done. Other malignancy work up can be done as an outpatient. She will need to follow up as outpatient to continue with work up of her anemia and thrombocytopenia. She may need bone marrow biopsy and flow cytometry (PNH and lymphoma workup). 1. Continue ferrous sulfate 325 mg PO TID daily 2. Outpatient GI evaluation - colonoscopy 3. Outpatient Screening mammogram and gynecologic evlaution 4. Follow up on neurology recommendations 5. Follow up on rheumatology evaluation 6. Follow up as outpatient after discharge. Please call [phone] with any questions or concerns Problem List: 1. REN (acute kidney injury) 2. Thrombocytopenia 3. Anemia 4. CVA (cerebral vascular accident)
--- NOTE | 2016-07-29 10:48 | PN- Cardiology ---
Subjective Subjective: The patient is awake, alert We have reviewed the findings of the transesophageal echocardiogram with the patient and her The events of the last 24 hours as well as telemetry were reviewed. Review of Systems: The review of systems is negative for chest pains, palpitations nor lightheadedness. The remainder of the 14 point review of systems is noncontributory with the exception of above. Objective Vital Signs and I&Os Vital Signs Date Time Temp Pulse Resp B/P Pulse O2 O2 Flow FiO2 Ox Delivery Rate 07/29 921 132/70 07/28 2354 98.3 82 18 130/82 96 Room Air 07/28 1530 98.2 82 18 130/80 98 Room Air Intake & Output 07/29 1600 07/29 0800 07/29 0000 07/28 1600 07/28 0000 Intake Total 50 600 560 120 240 Output Total 450 400 Balance 50 600 560 -330 -160 Intake, Oral 50 600 560 120 240 Number 1 Bowel Movements Output, Urine 450 400 Patient 136 lb Weight Physical Exam: General: Nontoxic, no apparent distress. HEENT: Sclera and conjunctiva within normal limits, without xanthelasmas. Neck: Carotids 2+ without bruits. Respiratory: Clear to auscultation, air movement is good, without accessory respiratory muscle use. Heart: Regular rate and rhythm, 2/6 systolic ejection murmur at left sternal border, without JVD. Abdomen: Soft, nontender, no masses, normoactive bowel sounds. Extremities: Without clubbing, cyanosis, without edema. Neuro: Nonfocal exam, strength, 5 out of 5 Skin: Within normal limits without lesions. Psych: Mood and affect: Normal Current Medications: Current Medications Sig/Cathi Start time Last Medication Dose Route Stop Time Status Admin Acetaminophen 650 MG Q6P PRN 07/23 1815 AC PO Aspirin 81 MG DAILY 07/24 1200 AC 07/29 PO 0922 Atorvastatin Calcium 40 MG 1700 07/24 1700 AC 07/28 PO 181 Ferrous Sulfate 325 MG TID 07/25 2200 AC 07/29 PO 0922 Levothyroxine Sodium 0.025 MG DAILY AC 07/24 1457 AC 07/29 PO 0705 Metoprolol Succinate 50 MG DAILY 07/26 1000 AC 07/29 PO 0922 Oxycodone/ 1 TAB Q6P PRN 07/23 1815 AC Acetaminophen PO Oxycodone/ 2 TAB Q6P PRN 07/23 1815 AC Acetaminophen PO Patient Medication 1 ED .[facility] 07/28 1322 [facility] ED 07/28 1323 Results Last 48 Hrs of Labs/Mics: Laboratory Tests 07/29/16 0640: Anion Gap 10, Estimated GFR 46 L, BUN/Creatinine Ratio 21.7, CBC w Diff MAN DIFF ORDERED, RBC 3.22 L, MCV 74.6 L, MCH 24.1 L, RDW 16.2 H, MPV 11.6 H, Gran % 75.4 H, Lymphocytes % 15.1 L, Monocytes % 6.2, Eosinophils % 2.9, Basophils % 0.4, Absolute Granulocytes 4.7, Segmented Neutrophils 75, Band Neutrophils 1, Absolute Lymphocytes 0.9 L, Lymphocytes 15 L, Monocytes 4, Absolute Monocytes 0.4, Eosinophils 5, Absolute Eosinophils 0.2, Absolute Basophils 0, Platelet Estimate DECREASED, Hypochromic-Microcytic 1+, Poikilocytosis 2+, Anisocytosis 2+, Ovalocytes 2+, PUBS MCHC 32.3 L 07/28/16 0618: Anion Gap 12, Estimated GFR 46 L, BUN/Creatinine Ratio 23.3, CBC w Diff MAN DIFF ORDERED, RBC 3.46 L, MCV 74.5 L, MCH 24.3 L, RDW 15.8 H, MPV 11.0 H, Gran % 70.8, Lymphocytes % 18.7 L, Monocytes % 7.2, Eosinophils % 2.9, Basophils % 0.4, Absolute Granulocytes 4.7, Absolute Lymphocytes 1.3, Absolute Monocytes 0.5, Absolute Eosinophils 0.2, Absolute Basophils 0, Platelet Estimate DECREASED, Polychromasia 1+, Hypochromic-Microcytic 2+, Poikilocytosis 2+, Anisocytosis 1+, Ovalocytes 2+, PUBS MCHC 32.5 L, Retic Count 2.72 H Assessment/Plan Assessment/Plan 1. Narrow complex tachycardia terminated with adenosine, consistent with AVNRT 2. Recent neurologic symptoms with abnormal CT, concern for subacute CVA? 3. History of migraine headache 4. Anemia/thrombocytopenia of unclear etiology 5. Mild renal insufficiency 6. Elevated troponin with flat troponin curve consistent with demand ischemia from the SVT 7. 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 Follow-up with EP will likely be performed as an outpatient. We will attempt to increase her regimen of metoprolol to 50 mg by mouth daily for further arrhythmia suppression, and especially given her hypertension. CVA: Awaiting further input by rheumatology regarding possible vasculitis. Given the patient's finding of supraventricular tachycardia, consideration for degradation and atrial fibrillation must as well be given. I have discussed the possibility of a Linq device insertion with the patient and her . This will be arranged for as an outpatient. Mitral regurgitation: The patient underwent a transesophageal echocardiogram today which demonstrated normal LV systolic function. There was focal thickening of the mitral valve leaflet tips with a small mobile echodensity attached to the anterior leaflet, consistent with a likely small chordal rupture. There is moderate mitral regurgitation. Disposition: Further outpatient cardiac workup including a possible AVNRT ablation will be performed as an outpatient. Continue telemetry? No
[2016-07-29 11:34] LABS: PT 15.5 SEC (9.4-12.5); PTT 55 SEC (25-37)
[2016-07-29] MEDS ORDERED: FERROUS SULFAT325 M2 PO (14:05)
[2016-07-29] MEDS ORDERED: ATORVASTATIN CA40 M1 PO (14:05)
[2016-07-29] MEDS ORDERED: TOPROL XL50 M1 PO (14:06)
[2016-07-29] MEDS ORDERED: ASPIRIN81 M4 PO (14:06)
[2016-07-29] MEDS ORDERED: SYNTHROID25 MCG PO (14:07)
--- NOTE | 2016-07-29 14:32 | Patient Discharge Instructions ---
Discharge Instructions General Discharge Information You were seen/treated for: 1. Narrow complex tachycardia terminated with adenosine, consistent with AVNRT 2. Recent neurologic symptoms with abnormal CT, concern for subacute CVA? 3. History of migraine headache 4. Anemia/thrombocytopenia of unclear etiology 5. Mild renal insufficiency 6. Elevated troponin with flat troponin curve consistent with demand ischemia from the SVT 7. Subclinical hypothyroidism Special Instructions: -Follow up with your Primary care physician in one week after discharge -Follow up with your accountant budget in 1-2 weeks after discharge. Follow up with your department administrator -Take your medications as prescribed. Acute Coronary Syndrome Inclusion Criteria At DC or during hospital stay patient has or had the following: ACS DIAGNOSIS No Discharge Core Measures Meds if any: Prescribed or Continued at Discharge Meds if any: NOT Prescribed or Continued at Discharge Congestive Heart Failure Inclusion Criteria At DC or during hospital stay patient has or had the following: CHF DIAGNOSIS No Discharge Core Measures Meds if any: Prescribed or Continued at Discharge Meds if any: NOT Prescribed or Continued at Discharge Cerebrovascular accident Inclusion Criteria At DC or during hospital stay patient has or had the following: CVA/TIA Diagnosis Yes Discharge Core Measures Meds if any: Prescribed or Continued at Discharge Meds if any: NOT Prescribed or Continued at Discharge Venous thromboembolism Inclusion Criteria VTE Diagnosis No VTE Type NONE VTE Confirmed by (Test) NONE Discharge Core Measures - Per Current guidelines, there needs to be overlap - treatment for the first 5 days of Warfarin therapy. - If discharged on Warfarin prior to 5 days of - overlap therapy, the patient will need to be - assessed for post discharge needs including - *Post discharge parental anticoagulation - *Warfarin and/or parental anticoagulation education - *Follow up date to check INR post discharge At least 5 days overlap therapy as Inpatient No Meds if any: Prescribed or Continued at Discharge Note: Overlap Therapy is Warfarin and Anticoagulant Meds if any: NOT Prescribed or Continued at Discharge
--- NOTE | 2016-07-29 15:58 | Proc Note Internal Medicine ---
Medicine Procedure Procedure Date: 07/29/16 Medical Procedure(s): lumbar puncture Pre-Operative Diagnosis: Multi-infarct strokes. Need to R/O Vasculitis Estimated Blood Loss: scant Anesthesia: Local anaesthesia 1% Lidocaine Procedure Findings: Procedure done under the supervision of . A time-out was completed which include patient concent, indications, risks, and benefits explained patient, positioning, and presence of all required stuff such as LP kit. The patient was placed in the right lateral decubitus position in a semi- position with help from and the nursing staff. The area was cleansed and draped in usual sterile fashion. 1% lidocaine was used to anesthetize the surrounding skin area. A spinal needle was placed in the L4-L5 interspace. Clear cerebral spinal fluid was obtained. Four tubes were filled with 10mL of clear CSF in tube #1 and 4 mL of CSF in tube #2, #3,and #4. These were sent for the usual tests. Attending was present for the entire procedure. The patient tolerated the procedure well. There was no blood loss or hematoma.
[2016-07-29 16:36] VITALS: BP 131/59
[2016-07-29 17:00] VITALS: BP 118/70
[2016-07-29 23:59] VITALS: BP 118/70
[2016-07-30 07:51] VITALS: BP 130/90
[2016-07-30 08:20] LABS: ABSOLUTE BASOPHIL COUNT 0 /CUMM (0.0-0.2); ABSOLUTE EOSINOPHIL COUNT 0.1 /CUMM (0.0-0.7); ABSOLUTE GRANULOCYTE CT 3.7 /CUMM (1.4-6.5); ABSOLUTE LYMPH COUNT 1.1 /CUMM (1.2-3.4); ABSOLUTE MONOCYTE COUNT 0.4 /CUMM (0.10-0.60); BASOPHIL % 0.5 % (0.0-2.0); EOSINOPHIL % 2.7 % (0-5); HEMATOCRIT 23.5 % (37-47); MEAN CORPUSCULAR HGB 24.6 PG (27.0-31.0); MEAN CORPUSCULAR VOLUME 74.4 FL (81.0-99.0); PLATELET COUNT 120 /CUMM (130-400); RBC DISTRIBUTION WIDTH 16.4 % (11.5-14.5); RED BLOOD CELL CT 3.15 /CUMM (4.20-5.40); WHITE BLOOD CELL COUNT 5.4 /CUMM (4.8-10.8)
--- NOTE | 2016-07-30 09:32 | PN- Cardiology ---
Subjective Subjective: * Patient developed a mild headache yesterday after her LP which is slightly improved. No chest discomfort, shortness of breath, lightheadedness or palpitations. Patient is able to ambulate. * Creatinine stable at 1.2 * H/H moderately low but stable Objective Vital Signs and I&Os Vital Signs Date Time Temp Pulse Resp B/P Pulse O2 O2 Flow FiO2 Ox Delivery Rate 07/30 0905 130/72 07/30 0751 98.7 73 18 130/90 96 Room Air 07/29 2359 97.9 83 18 118/70 97 Room Air 07/29 1700 118/70 07/29 1636 98.6 79 16 131/59 96 Room Air Intake & Output 07/30 1600 07/30 0800 07/30 0000 07/29 1600 07/29 0800 07/29 0000 Intake Total 600 400 50 600 Output Total 600 Balance 600 -200 50 600 Intake, Oral 600 400 50 600 Number 1 Bowel Movements Output, Urine 600 Physical Exam: General: WD/ WN female in NAD; alert and oriented x 3 Neck: no JVD, no carotid bruit heart: RRR with 2/6 systolic murmur at the LLSB Lungs: clear bilaterally Extremities: no edema Assessment/Plan Assessment/Plan * No evidence of recurrent SVT. Continue Metoprolol at 50mg daily. * Continue aspirin and Atorvastatin * Patient has a plan for outpatient EP evaluation. Okay to discharge to a [facility] from a cardiac standpoint. Continue telemetry? No
--- NOTE | 2016-07-30 10:31 | PN- Housestaff ---
KLAUS JIMENEZ,MAYE 07/30/16 1031: Subjective Follow-up For: CVA Complaints: no complaints Subjective: Patient is seen and examined at the bedside. She does not have any active complain. She was just requesting that she want to go STR tomorrow between 9-10. Review of Systems Constitutional: Denies: no symptoms. Objective Last 24 Hrs of Vital Signs/I&O Vital Signs Date Time Temp Pulse Resp B/P Pulse O2 O2 Flow FiO2 Ox Delivery Rate 07/30 2134 98.3 78 20 118/64 97 07/30 1624 98.6 76 17 126/58 98 Room Air 07/30 0905 130/72 07/30 0751 98.7 73 18 130/90 96 Room Air 07/29 2359 97.9 83 18 118/70 97 Room Air Intake & Output 07/30 1600 07/30 0800 07/30 0000 Intake Total 400 600 Output Total 550 Balance -150 600 Intake, Oral 400 600 Output, Urine 550 Physical Exam General Appearance: Alert, Oriented X3, Cooperative, No Acute Distress Skin: No Rashes, No Breakdown HEENT: Atraumatic, PERRLA, EOMI Neck: Supple, No JVD Cardiovascular: Regular Rate, Normal S1, Normal S2 Lungs: Clear to Auscultation, Normal Air Movement Abdomen: Normal Bowel Sounds, Soft, No Tenderness Neurological: Normal Gait, Normal Speech, weakness in the left arm and the left leg Extremities: No Clubbing, No Cyanosis, No Edema Vascular: Normal Pulses, Pulses Symmetrical Assessment/Plan Assessment: 56-year-old lady with a PMH of chronic headaches (??migraines) managed with amitriptyline 10 mg daily who presents with complaints of two-week duration progressive weakness, imbalance, confusion and new onset palpitations. VS - stable Labs: WBC 14.8, 90% bandemia. H&H 8.7/26.5, platelets 78, chloride 109, bicarbonate 18, BUN/CR 34/1.4 Troponin: 0.30 TSH: 7.460 Problem list- CVA -Multiple acute to subacute infarcts within the right occipital lobe Narrow complex tachycardia Pancytopenia Acute kidney injury-recovered Plan- * Discharge tomorrow, to STR * His CSF findings are benign, we'll follow for the send outs * Continue atorvastatin 40 mg daily * Continue aspirin 81 mg daily * Continue metoprolol succinate to 50 mg daily * Diet - heart healthy * DVT prophylaxis-ALP S * CODE STATUS-full code Problem List: 1. CVA (cerebral vascular accident) 2. REN (acute kidney injury) 3. Thrombocytopenia 4. Anemia 5. Lacunar infarction Pain Ratin Pain Location: none Pain Goal: Remain pain free Pain Plan: mild Tomorrow's Labs & Rationales: none DVT/Prophylaxis: mechanical Consulting Request: Consulting Specialty: Neurology Consulting Physician: ALISA Bowers MD 07/30/16 1305: Attending MD Review Statement Attending Statement Attending MD Statement: examined this patient, discuss w/resident/PA/DECORATOR CONSULTANT, discussed with family, reviewed EMR data (avail), discussed with nursing, reviewed images, amended to note Attending Assessment/Plan: Mrs. Petty was interviewed in the presence of her . She was examined in her EMR reviewed. She stated she had a mild headache earlier today which resolved without medication. She still notes left-sided weakness. Her vital signs are stable and satisfactory. Physical exam is notable for a left hemiparesis. Completed labs are benign. Her initial CSF studies are also benign. Our plan is at present that she should go to [facility]. ALISA GARCIA MD 07/30/16 1305: Attending MD Review Statement Attending Statement Attending MD Statement: examined this patient, discuss w/resident/PA/DECORATOR CONSULTANT, discussed with family, reviewed EMR data (avail), discussed with nursing, reviewed images, amended to note Attending Assessment/Plan: Mrs. Petty was interviewed in the presence of her . She was examined in her EMR reviewed. She stated she had a mild headache earlier today which resolved without medication. She still notes left-sided weakness. Her vital signs are stable and satisfactory. Physical exam is notable for a left hemiparesis. Completed labs are benign. Her initial CSF studies are also benign. Our plan is at present that she should go to short-term rehabilitation in the a.
[2016-07-30 16:24] VITALS: BP 126/58
--- NOTE | 2016-07-30 18:53 | NUR ---
I ASKED PT AND SPOUSE IF IT WOULD BE OK FOR THE BOYFREIND TO STAY AT THE BEDSIDE FOR 189-1 THEY SAID "HE WAS WELCOME TO STAY NO PROBLEM AT ALL".
[2016-07-30 21:34] VITALS: BP 118/64
--- NOTE | 2016-07-31 | NUR ---
PATIENT ARRIVED TO FLOOR FROM TELE AT 2130, DX PALPITATIONS, EMBOLIS VS 98.3 78 20 118/64 97% ROOM AIR A&O X3, CAN BE CONFUSED AT TIMES INDEPENDENT TO BR, WILL CALL APPROPRIATELY, BED ALARM IN PLACE #20 IV TO PLACED 07/27/16 ORIENTED TO ROOM AND CALL [facility]EN CONTINUE TO MONITOR
[2016-07-31 07:58] VITALS: BP 131/78
--- NOTE | 2016-07-31 11:05 | NUR ---
PHYSICAL THERAPY- PT TO BE D/C TO ACUTE REHAB TODAY. PT EDUCATED ON ACUTE REHAB PROCESS AND QUESTIONS WERE ANSWERED THAT PT AND HAD. THANK YOU, PEDRITO MOHAMUDT
--- NOTE | 2016-07-31 12:29 | PN- Att Addend ---
Attending Addendum Attending Brief Note Mrs. Petty has remained stable overnight. There've been no new events. She is afebrile with stable vital signs. Her physical exam is unchanged. Her CSF studies have returned normal. At this time she is stable for discharge to rehabilitation.
[2016-07-31 13:10] VITALS: BP 138/64
== END 2016-07-31 13:33 | DRG 45 ==
LOC: ENRESERVDT → ENRESERVTM → ERH 14:33 → 1NO 16:42 → ERHI 16:42 → ENPENDDIS 16:42 → 1NO 19:23 → 2NB 07-30 21:24
PROVIDERS: Emergency Medicine; Internal Medicine; Student in an Organized Health Care Education/Training Program; ADMIT Internal Medicine
PROC: 009U3ZX Drainage of Spinal Canal, Percutaneous Approach, Diagnostic (ICD-10-PCS; principal; 2016-07-29)
DX: I63.9 Cerebral infarction, unspecified (principal); I47.1 Supraventricular tachycardia; R51 Headache; D69.6 Thrombocytopenia, unspecified; I24.8 Other forms of acute ischemic heart disease; N17.9 Acute kidney failure, unspecified; D50.9 Iron deficiency anemia, unspecified; G81.94 Hemiplegia, unspecified affecting left nondominant side; E03.9 Hypothyroidism, unspecified; I67.7 Cerebral arteritis, not elsewhere classified
CPT/HCPCS: 1NSP; 2NSBP; 70551; 70555; 82040; 82784; 83883; 86021; 86618; 87070; 87075; 87205; 36415; 81001; 82436; 83010; 87040; 87086; 87389; 87804; 87804-59; 93005; 93010; 93306; 93325; 96374; 97110-GO; 97112-GO; 97116-GO; 97162-GP; 97165-GO; 97530-GO; 99291; J0153; J3490

== ENCOUNTER 2016-09-04 15:38 | Emergency (ER) | payer OTHER ==
[~2016-09-04] VITALS: Ht 165.1 cm; Wt 59.0 kg
[~2016-09-04 15:38] MED LIST: AMITRIPTYLINE H10 M2 PO; ASPIRIN81 M4 PO; ATORVASTATIN CA40 M1 PO; FERROUS SULFAT325 M2 PO; SYNTHROID25 MCG PO; TOPROL XL50 M1 PO
--- NOTE | 2016-09-04 16:58 | ED GI/GU/ABDOMINAL COMPLAINT ---
History of Present Illness General Chief Complaint: Nausea, Vomiting, Diarrhea Stated Complaint: DIARRHEA Source: patient, family, old records Exam Limitations: no limitations Vital Signs & Intake/Output Vital Signs & Intake/Output Vital Signs Date Time Temp Pulse Resp B/P Pulse O2 O2 Flow FiO2 Ox Delivery Rate 09/04 1855 100.6 83 18 128/60 97 Room Air 09/04 1539 97.8 90 18 118/78 94 Room Air ED Intake and Output 09/05 0000 09/04 1200 Intake Total 1000 Output Total 350 Balance 650 Intake, IV 1000 Number 3 Bowel Movements Output, Urine 350 Patient 130 lb Weight Allergies Coded Allergies: No Known Allergies (07/23/16) Reconcile Medications Atorvastatin Calcium 40 MG TABLET 40 MG PO 1700 lipid management Ferrous Sulfate 325 MG (65 MG IRON) TABLET 1 TAB PO DAILY SUPPLEMENT ( Reported) Levothyroxine Sodium (Levoxyl) 75 MCG TABLET 1 TAB PO DAILY THYROID (Reported ) Metoprolol Succ XL (Toprol Xl) 50 MG TAB 50 MG PO DAILY heart health Warfarin Sodium (Coumadin) 4 MG TABLET 1 TAB PO DAILY BLOOD THINNER (Reported ) Triage Note: COMPLAINS OF WATERY STOOL SINCE MONDAY. INTERMITTANT ABD CRAMPING. 3 EPISODES TODAY Triage Nurses Notes Reviewed? yes ? N Is pt currently ? No Onset: Abrupt Duration: day(s): (3), constant Timing: recent history Quality/Severity: cramping Severity Numbers: 4 Location: generalized abdomen Radiation: no radiation Activities at Onset: none No Modifying Factors: none Associated Symptoms: DENIES HPI: 56-year-old female with history of SVT antiphospholipid syndrome with recent admission to this hospital for the same requiring rehabilitation for which she got home 11 days ago presents to the ER today for evaluation with her complaining of multiple episodes of watery diarrhea that she has had for the past 3 days. No black or bloody stools patient is on Coumadin daily. She reports intermittent crampy generalized abdominal pain, she denies pain at this time. No fever no chills. No recent antibiotic use or sick contacts that she is aware of. She denies any urinary symptoms nausea vomiting. There are no modifying factors or associated symptoms otherwise. No dizziness, or lightheadedness. symptoms are not worse with eating. (KINA MORALES,ERIC) Past History Travel History Traveled to [place] past 21 day No Medical History Any Pertinent Medical History? 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 No (ERIC WOODSON) Review of Systems Review of Systems Constitutional: Reports: see HPI. All Other Systems: Reviewed and Negative Comments Review of systems: See HPI, All other systems negative. Constitutional, no chills no fever, no malaise HEENT: No visual changes no sore throat no congestion Cardiovascular: No chest pain , no palpitation , Skin, no rashes, no change in skin Respiratory: No dyspnea no cough no sputum GI: No nausea no vomiting,diarrhea : No dysuria Muscle skeletal: No joint pain, no back pain, no neck pain, Neurologic: No numbness no headache Psych: No stress Heme/endocrine: No bruising no bleeding Immunology: No lymphadenopathy (ERIC WOODSON) Physical Exam Physical Exam General Appearance: well developed/nourished, no apparent distress Gastrointestinal: soft Comments: Well-developed well-nourished person in no acute distress HEENT: Normal EENT exam; PERRL, EOMI, HEAD is atraumatic. moist mucous membranes. Neck: Supple,normal range of motion Back: Nontender, no CVA tenderness. Full range of motion Cardiovascular: Regular rate and rhythms no murmurs rubs Respiratory: No respiratory distress. Patient speaking in full complete sentences. Breath sounds clear to auscultation bilaterally: NO W/R/R Abdomen: Soft, nontender nondistended, no appreciable organomegaly. Normal bowel sounds. No rebound/guarding, Extremity: No edema, full range of motion of extremities Neuro: Alert oriented x3, motor sensory normal, There were no obvious focal neurologic abnormalities. Skin: No appreciable rash on exposed skin, skin is warm and dry. Psych: Mood and affect is normal, memory and judgment is normal. Core Measures ACS in differential dx? No Severe Sepsis Present: No Septic Shock Present: No (ERIC WOODSON) Progress Differential Diagnosis: bowel obstruction, colon cancer, diverticulitis, gastritis, hepatitis, ischemic bowel, inflamm bowel dis, peptic ulcer, PUD/GERD, perforated viscous, SBO, MALIGNANCY, COLITIS, CDIFF Plan of Care: Orders Procedure Date/time Status Saline Lock 09/05 1655 Active CULTURE,STOOL 09/05 1655 Active C.DIFFICILE 09/05 1655 Active PROTHROMBIN TIME 09/05 1655 Complete LIPASE 09/05 1655 Complete LACTIC ACID 09/05 1655 Complete COMPREHENSIVE METABOLIC PANEL 09/05 1655 Complete CBC WITHOUT DIFFERENTIAL 09/05 1655 Complete AMYLASE 09/05 1655 Complete Laboratory Tests 09/04/161955: Lactic Acid Cancelled 09/04/16 1715: Anion Gap 16, Estimated GFR 33 L, BUN/Creatinine Ratio 18.8, Glucose 99, Lactic Acid 1.5, Calcium 9.6, Total Bilirubin 0.7, AST 26, ALT 38, Alkaline Phosphatase 48, Total Protein 7.3, Albumin 4.0, Globulin 3.3, Albumin/Globulin Ratio 1.2, Amylase 76, Lipase 59, PT 38.6 H, INR 3.72 H, CBC w Diff MAN DIFF ORDERED, RBC 3.73 L, MCV 77.2 L, MCH 24.6 L, RDW 18.3 H, MPV 9.2, Gran % 84.8 H, Lymphocytes % 7.2 L, Monocytes % 6.5, Eosinophils % 1.3, Basophils % 0.2, Absolute Granulocytes 9.1 H, Segmented Neutrophils 75, Band Neutrophils 6 H, Absolute Lymphocytes 0.8 L, Lymphocytes 7 L, Monocytes 10 H, Absolute Monocytes 0.7 H, Eosinophils 2, Absolute Eosinophils 0.1, Absolute Basophils 0, Platelet Estimate DECREASED, Polychromasia 1+, Hypochromic-Microcytic 2+, Anisocytosis 1+, Microcytic Cells 1+, PUBS MCHC 31.9 L Microbiology 09/04 1924 STOOL: Clostridium difficile Toxin A & B - RECD 09/04 1924 STOOL: Stool Culture - RECD Labs ordered old records reviewed IV fluids CAT scan ordered, old records reviewed shows patient's hemoglobin today is above baseline. 09/04/2016 7:35:12 PM I discussed with the patient and her her lab results CT findings. INR 3.72. Per the patient's family her primary care physician wants herinrl between 2.5 and 3.5 she will hold tonight's Coumadin and repeat in this prescription tomorrow and discuss with him need for close follow- up with her primary care physician this week I discussed with him need to call them tomorrow for follow-up. I answered all their questions they feel comfortable plan the patient received a liter of fluid her creatinine of 1.6 is slightly increased from baseline old records show baseline creatinine of 1.2 through 1.4. They feel comfortable with plan or joints are within normal limits lactic acid is negative abdomen is soft nontender I answered all their questions they feel comfortable with plan. The case and labs were all discussed with Dr. Flynn agrees with plan (KINA MORALES,ERIC) Diagnostic Imaging: Viewed by Me: CT Scan. Discussed w/RAD: CT Scan. Radiology Impression: PATIENT: LM HINKLE PRESENT AGE: 56 PATIENT ACCOUNT NO: [id number] : 56 LOCATION: [facility] ORDERING PHYSICIAN: ERIC MORALES SERVICE DATE: 09/04/16 EXAM TYPE: CAT - CT ABD & PELVIS W/O IV CONTRAS EXAMINATION: CT ABDOMEN AND PELVIS WITHOUT CONTRAST CLINICAL INFORMATION: Diarrhea. Generalized abdominal pain. COMPARISON: None. TECHNIQUE: Multidetector volumetric imaging was performed from the superior aspect of the liver through the pubic symphysis. Sagittal and coronal reformatted images were obtained on the technologist's workstation. DLP: 275 mGy -cm FINDINGS: Limited evaluation of the solid abdominal viscera in the absence of intravenous contrast. LUNG BASES: Normal dependent bibasilar atelectasis. LIVER, GALLBLADDER, AND BILIARY TREE: The liver is normal in size, shape, and attenuation. No focal hepatic lesion or biliary ductal dilatation is present. The gallbladder is unremarkable with no evidence of radiopaque gallstones, gallbladder wall thickening, or obvious pericholecystic inflammatory changes. PANCREAS: Unremarkable. SPLEEN: Unremarkable. ADRENAL GLANDS: Unremarkable. KIDNEYS AND URETERS: Evaluation of the bilateral kidneys and renal collecting systems is notable for amorphous calcifications scattered throughout the left renal parenchyma. No right renal or bilateral ureteral stones are identified and there is no hydroureteronephrosis of either kidney or renal collecting system. BLADDER: Unremarkable. GASTROINTESTINAL TRACT: Normal anatomic orientation of the stomach relative to the duodenum. Normal caliber of abdominal and pelvic bowel loops, without evidence of obstruction or ileus. No circumferential bowel wall thickening with surrounding inflammatory changes to suggest an underlying infectious or inflammatory enterocolitis. Normal-appearing appendix within the right lower quadrant of the abdomen. No organizing intra-abdominal fluid collections or free intraperitoneal air. ABDOMINAL WALL: No significant hernia is appreciated. LYMPH NODES: No significant abdominal or pelvic adenopathy. VASCULAR: Normal course and caliber of the abdominal aorta and its branching vessels, without aneurysmal dilatation. Limited evaluation for vascular patency in the absence of intravenous contrast. PELVIC VISCERA: Unremarkable. OSSEOUS STRUCTURES: No acute osseous abnormality. Normal alignment of the imaged thoracolumbar spine. IMPRESSION: No acute findings within the abdomen or pelvis to explain patient symptomatology. Incidental note is made of cortical nephrocalcinosis of the left kidney. DICTATED BY: SONIDO HERNANDEZ MD DATE/TIME DICTATED:09/04/161837 NUCLEAR EQUIPMENT TEST ENGINEER:THEE DATE/TIME TRANSCRIBED:1837 CONFIDENTIAL, DO NOT COPY WITHOUT APPROPRIATE AUTHORIZATION. < Electronically signed in Other Vendor System> SIGNED BY: SONIDO HERNANDEZ MD 09/04/161851 Initial ED EKG: none (ERIC WOODSON) Departure Departure Disposition: HOME OR SELF CARE Condition: Stable Clinical Impression Primary Impression: Diarrhea Referrals: JENNIFER JIMENEZ,MARIA ELENA Beltran (PCP/Family) Additional Instructions: [place] diet drink plenty of fluids. Continue using Imodium as needed. Hold the Coumadin dose this evening. Follow-up with your primary care physician tomorrow to see if she can be seen earlier this week, return anytime sooner with any concerns or symptoms Departure Forms: Customer Survey General Discharge Information (ERIC WOODSON) PA/DIRECTOR DATABASE Co-Sign Statement Statement: ED Attending supervision documentation- [] I saw and evaluated the patient. I have also reviewed all the pertinent lab results and diagnostic results. I agree with the findings and the plan of care as documented in the PA's/DIRECTOR DATABASE's documentation. [x] I have reviewed the ED Record and agree with the PA's/DIRECTOR DATABASE's documentation. [] Additions or exceptions (if any) to the PAs/DIRECTOR DATABASE's note and plan are summarized below: [] (DENNISE JIMENEZ,HEBERT Molina)
[2016-09-04 17:27] LABS: ABSOLUTE BASOPHIL COUNT 0 /CUMM (0.0-0.2); ABSOLUTE EOSINOPHIL COUNT 0.1 /CUMM (0.0-0.7); ABSOLUTE GRANULOCYTE CT 9.1 /CUMM (1.4-6.5); ABSOLUTE LYMPH COUNT 0.8 /CUMM (1.2-3.4); ABSOLUTE MONOCYTE COUNT 0.7 /CUMM (0.10-0.60); BASOPHIL % 0.2 % (0.0-2.0); EOSINOPHIL % 1.3 % (0-5); GRANULOCYTE % 84.8 % (42.2-75.2); HEMATOCRIT 28.8 % (37-47); MEAN CORPUSCULAR HGB 24.6 PG (27.0-31.0); MEAN CORPUSCULAR HGB CONC 31.9 G/DL (33.0-37.0); MEAN CORPUSCULAR VOLUME 77.2 FL (81.0-99.0); MEAN PLATELET VOLUME 9.2 FL (7.4-10.4); PLATELET COUNT 96 /CUMM (130-400); RBC DISTRIBUTION WIDTH 18.3 % (11.5-14.5); RED BLOOD CELL CT 3.73 /CUMM (4.20-5.40); WHITE BLOOD CELL COUNT 10.8 /CUMM (4.8-10.8)
[2016-09-04 17:41] LABS: PT 38.6 SEC (9.4-12.5)
[2016-09-04] MEDS ORDERED: COUMADIN4 M1 PO (18:30)
[2016-09-04] MEDS ORDERED: LEVOXYL75 MCG PO (18:31)
[2016-09-04] MEDS ORDERED: FERROUS SULFAT325 M3 PO (18:31)
--- NOTE | 2016-09-04 18:52 | CT SCAN REPORT ---
EXAMINATION: CT ABDOMEN AND PELVIS WITHOUT CONTRAST CLINICAL INFORMATION: Diarrhea. Generalized abdominal pain. COMPARISON: None. TECHNIQUE: Multidetector volumetric imaging was performed from the superior aspect of the liver through the pubic symphysis. Sagittal and coronal reformatted images were obtained on the technologist's workstation. DLP: 275 mGy-cm FINDINGS: Limited evaluation of the solid abdominal viscera in the absence of intravenous contrast. LUNG BASES: Normal dependent bibasilar atelectasis. LIVER, GALLBLADDER, AND BILIARY TREE: The liver is normal in size, shape, and attenuation. No focal hepatic lesion or biliary ductal dilatation is present. The gallbladder is unremarkable with no evidence of radiopaque gallstones, gallbladder wall thickening, or obvious pericholecystic inflammatory changes. PANCREAS: Unremarkable. SPLEEN: Unremarkable. ADRENAL GLANDS: Unremarkable. KIDNEYS AND URETERS: Evaluation of the bilateral kidneys and renal collecting systems is notable for amorphous calcifications scattered throughout the left renal parenchyma. No right renal or bilateral ureteral stones are identified and there is no hydroureteronephrosis of either kidney or renal collecting system. BLADDER: Unremarkable. GASTROINTESTINAL TRACT: Normal anatomic orientation of the stomach relative to the duodenum. Normal caliber of abdominal and pelvic bowel loops, without evidence of obstruction or ileus. No circumferential bowel wall thickening with surrounding inflammatory changes to suggest an underlying infectious or inflammatory enterocolitis. Normal-appearing appendix within the right lower quadrant of the abdomen. No organizing intra-abdominal fluid collections or free intraperitoneal air. ABDOMINAL WALL: No significant hernia is appreciated. LYMPH NODES: No significant abdominal or pelvic adenopathy. VASCULAR: Normal course and caliber of the abdominal aorta and its branching vessels, without aneurysmal dilatation. Limited evaluation for vascular patency in the absence of intravenous contrast. PELVIC VISCERA: Unremarkable. OSSEOUS STRUCTURES: No acute osseous abnormality. Normal alignment of the imaged thoracolumbar spine. IMPRESSION: No acute findings within the abdomen or pelvis to explain patient symptomatology. Incidental note is made of cortical nephrocalcinosis of the left kidney.
[2016-09-04 18:55] VITALS: BP 128/60
[2016-09-05] MEDS ORDERED: COLACE100 M1 PO (18:22)
[2016-09-05] MEDS ORDERED: FLAGYL500 MG PO (19:03)
== END 2016-09-04 21:01 ==
LOC: ERH 15:38
PROVIDERS: Physician Assistant Medical
DX: R19.7 Diarrhea, unspecified (principal)
CPT/HCPCS: 74176; 87045

== ENCOUNTER 2016-09-05 18:09 | Emergency (ER) | payer OTHER ==
[~2016-09-05] VITALS: Ht 165.1 cm; Wt 59.0 kg
[~2016-09-05 18:09] MED LIST changes: +COUMADIN4 M1 PO; +FERROUS SULFAT325 M3 PO; +LEVOXYL75 MCG PO
[2016-09-05] MEDS ORDERED: COLACE100 M1 PO (18:22)
[2016-09-05] MEDS ORDERED: FLAGYL500 MG PO (19:03)
--- NOTE | 2016-09-05 19:04 | ED GI/GU/ABDOMINAL COMPLAINT ---
History of Present Illness General Chief Complaint: Nausea, Vomiting, Diarrhea Stated Complaint: KYLE NVD Source: patient Exam Limitations: no limitations Vital Signs & Intake/Output Vital Signs & Intake/Output Vital Signs Date Time Temp Pulse Resp B/P Pulse O2 O2 Flow FiO2 Ox Delivery Rate 09/05 1920 98.3 88 18 138/70 98 Room Air 09/05 1818 Room Air Room Air 09/05 1810 98.4 96 20 135/64 100 Room Air Allergies Coded Allergies: No Known Allergies (09/05/16) Reconcile Medications Atorvastatin Calcium 40 MG TABLET 40 MG PO 1700 lipid management Docusate Sodium (Colace) 100 MG CAPSULE 1 CAP PO D PRN CONSTIPATION (Reported ) Ferrous Sulfate 325 MG (65 MG IRON) TABLET 1 TAB PO DAILY SUPPLEMENT ( Reported) Levothyroxine Sodium (Levoxyl) 75 MCG TABLET 1 TAB PO DAILY THYROID (Reported ) Metoprolol Succ XL (Toprol Xl) 50 MG TAB 50 MG PO DAILY heart health Metronidazole (Flagyl) 500 MG TABLET 1 TAB PO BID c diff Warfarin Sodium (Coumadin) 4 MG TABLET 1 TAB PO DAILY BLOOD THINNER (Reported ) Triage Note: PT KYLE FROM HOME TO ER C/C DIARRHEA X 6 DAYS. WAS SEEN HERE FOR SAME YESTERDAY. DIAGNOSED WITH VIRUS AND GIVEN PRESCRIPTION FOR IMMODIUM. REPORTS DIARRHEA "SEVERAL TIMES" TODAY, UNSURE HOW MANY DOSES OF IMMODIUM SHE HAS HAD BUT STATES "IT HASN'T WORKED". DENIES ANY PAIN AT PRESENT BUT STATES AT TIMES SHE HAS ABDOMINAL CRAMPING. STATES SHE ALSO HAS STARTED TO HAVE INTERMITTENT DIZZINESS. DENIES DIZZINESS AT PRESENT. Triage Nurses Notes Reviewed? yes ? n Is pt currently ? No HPI: This patient is a 56-year-old female who presented to the emergency department today for evaluation of diarrhea. The patient reported that her symptoms began approximately 4 days ago. She has had mild lower abdominal cramping with no nausea or vomiting. The patient reported that she has had watery diarrhea every 2-3 hours. No blood in the stool. The patient denied any fevers, chills, back pain, constipation, or any urinary symptoms. She was seen here in the emergency department yesterday and had an unremarkable CT scan of the abdomen and pelvis. She was sent home with Imodium. At that time the patient had no increase in her white blood cell count and was afebrile. The patient was recently was in a rehabilitation Center. (YESSY MATUTE PA-C) Past History Travel History Traveled to [place] past 21 day No Medical History Any Pertinent Medical History? 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 No (YESSY MATUTE PA-C) Review of Systems Review of Systems Constitutional: Reports: no symptoms. EENTM: Reports: no symptoms. Respiratory: Reports: no symptoms. Cardiovascular: Reports: no symptoms. GI: Reports: see HPI. Genitourinary: Reports: no symptoms. Musculoskeletal: Reports: no symptoms. Skin: Reports: no symptoms. Neurological/Psychological: Reports: no symptoms. All Other Systems: Reviewed and Negative (YESSY MATUTE PA-C) Physical Exam Physical Exam Gastrointestinal: normal bowel sounds, soft, no organomegaly, nontender palpation. No rebound or guarding. Nondistended no peritoneal signs Comments: Well-developed well-nourished person in no acute distress HEENT: Normal EENT exam, moist mucous membranes Neck: No lymphadenopathy Back: Normal gait Cardiovascular: Regular rate and rhythm with no murmurs, rubs, gallops Respiratory: Chest nontender. No respiratory distress. Breath sounds clear to auscultation bilaterally Extremity: Normal and equal pulses Neuro: Alert oriented x3, motor sensory normal, cranial nerves II through XII grossly intact. Skin: No appreciable rash on exposed skin, skin is warm and dry. Psych: Mood and affect is normal, memory and judgment is normal. Core Measures ACS in differential dx? No Severe Sepsis Present: No Septic Shock Present: No (YESSY MATUTE PA-C) Progress Differential Diagnosis: AMI, appendicitis, biliary colic, bowel obstruction, colon cancer, cholecystitis, diverticulitis, gastritis, hepatitis, ischemic bowel, inflamm bowel dis, pancreatitis, PID/cervicitis, perforated viscous, threatened AB, UTI/pyelo, Clostridium difficile Plan of Care: Current Medications Sig/Cathi Start time Last Medication Dose Stop Time Status Admin Metronidazole 500 MG ONCE ONE 09/05 1914 UNVr (Flagyl) 09/06 1915 Initial ED EKG: none (GIOVANI QUESADA,YESSY) Departure Departure Disposition: HOME OR SELF CARE Condition: Stable Clinical Impression Primary Impression: C. difficile colitis Referrals: JENNIFER JIMENEZ,MARIA ELENA Beltran (PCP/Family) Additional Instructions: Please take the antibiotic as prescribed and for its full duration. Please follow-up with your primary care physician. Be sure to stay hydrated with lots of fluids. Rest. Return for any worsening symptoms or concerns. Departure Forms: Customer Survey General Discharge Information Prescriptions: Current Visit Scripts Metronidazole (Flagyl) 1 TAB PO BID #20 TAB (YESSY MATUTE PA-C) PA/MAP PLOTTER Co-Sign Statement Statement: ED Attending supervision documentation- [] I saw and evaluated the patient. I have also reviewed all the pertinent lab results and diagnostic results. I agree with the findings and the plan of care as documented in the PA's/MAP PLOTTER's documentation. [X] I have reviewed the ED Record and agree with the PA's/MAP PLOTTER's documentation. [] Additions or exceptions (if any) to the PAs/MAP PLOTTER's note and plan are summarized below: [] (LAURA BOUDREAUX DO)
[2016-09-05 19:21] VITALS: BP 138/70
== END 2016-09-05 19:22 ==
LOC: ERH 18:09
DX: A04.7 Enterocolitis due to Clostridium difficile (principal)

== ENCOUNTER 2016-11-05 16:33 | Emergency (ER) | payer OTHER ==
[~2016-11-05 16:33] MED LIST changes: +COLACE100 M1 PO; +FLAGYL500 MG PO
--- NOTE | 2016-11-05 16:42 | ED CARDIAC/CP/PALPITATIONS ---
History of Present Illness General Chief Complaint: Chest Pain Stated Complaint: BIBA SVT Source: patient, family, old records, EMS Exam Limitations: no limitations Vital Signs & Intake/Output Vital Signs & Intake/Output Vital Signs Date Time Temp Pulse Resp B/P B/P Pulse O2 O2 Flow FiO2 Mean Ox Delivery Rate 11/05 1742 84 16 107/55 99 Room Air 11/05 1659 98 Room Air 11/05 1640 98.7 96 16 124/58 99 Room Air Allergies Coded Allergies: No Known Allergies (09/05/16) Reconcile Medications Atorvastatin Calcium 40 MG TABLET 40 MG PO 1700 lipid management Docusate Sodium (Colace) 100 MG CAPSULE 1 CAP PO D PRN CONSTIPATION (Reported ) Ferrous Sulfate 325 MG (65 MG IRON) TABLET 1 TAB PO DAILY SUPPLEMENT ( Reported) Levothyroxine Sodium (Levoxyl) 75 MCG TABLET 1 TAB PO DAILY THYROID (Reported ) Metoprolol Succ XL (Toprol Xl) 50 MG TAB 50 MG PO DAILY heart health Metronidazole (Flagyl) 500 MG TABLET 1 TAB PO BID c diff Warfarin Sodium (Coumadin) 4 MG TABLET 1 TAB PO DAILY BLOOD THINNER (Reported ) Triage Note: BIBA FROM HOME FOR SVT, RESOLVED AFTER ADMINISTRATION OF ADENOSINE 6MG BY EMS AND ARRIVES SINUS RATE 90'S AND NORMOTENSIVE. REPORTS EATING BREAKFAST AND SUDDNELY EXPERIENCED RACING HEART SENSATION, DENIES CP, SOB OR DIAPHORESIS. HX SVT AND TIA. AAOX3 ON ARRIVAL. OFFERS NO COMPLAINTS ON ARRIVA Triage Nurses Notes Reviewed? yes Onset: Abrupt Duration: hour(s): (1), better, constant, resolved prior to arrival Timing: recent history Quality/Severity: moderate, racing heartbeat Location: central Radiation: no radiation Activities at Onset: none Prior Chest Pain/Card Workup: similar episode jun 2016 Nitro Today/Relief: no nitro taken today Aspirin Today: no aspirin today Associated Symptoms: dizziness HPI: 56-year-old female with history of SVT, anemia, antiphospholipid syndrome on Coumadin presents to the ER for evaluation after she developed sudden onset of palpitations dizziness lightheadedness that came on after eating this evening around 3:30. On EMS arrival the patient was found to be in SVT she was administered 6 known grams adenosine in route with resolution. On arrival to the ER the patient is without any complaints. She denies any chest pain shortness of breath dizziness light tenderness abdominal pain nausea vomiting diarrhea. She's been compliant with all of her medication. There's been no recent changes in any of her medication her skein bleacher is Dr. ang in [place]. She denies alcohol or drug use (ERIC WOODSON) Past History Travel History Traveled to [place] past 21 day No Medical History Any Pertinent Medical History? see below for history Neurological: CVA, TIA, CHRONIC HEADACHES EENT: NONE Cardiovascular: SVT Respiratory: NONE Gastrointestinal: NONE Hepatic: NONE Renal: NONE Musculoskeletal: NONE Psychiatric: NONE Endocrine: ?THYROID PROBLEM Blood Disorders: ANTIPHOSPHOLIPID SYNDROME Cancer(s): NONE QUALITY ASSURANCE MONITOR FINAL/Reproductive: NONE Surgical History Surgical History: non-contributory Psychosocial History Who do you live with Spouse Services at Home None What is your primary language Cypriot Family History Hx Contributory? No (ERIC WOODSON) Review of Systems Review of Systems Constitutional: Reports: see HPI. All Other Systems: Reviewed and Negative Comments Review of systems: See HPI, All other systems negative. Constitutional, no chills no fever, no malaise HEENT: No visual changes no sore throat no congestion, no ear pain Cardiovascular: No chest pain , no palpitation , no orthopnea Skin: no rashes, no change in skin Respiratory: No dyspnea no cough no sputum no hemoptysis GI: No nausea no vomiting, no diarrhea, no bloating/constipation : No dysuria Muscle skeletal: No joint pain, no joint swelling, no back pain, no neck pain, Neurologic: no headache Psych: No stress no depression,. Heme/endocrine: No bruising no bleeding Immunology: No lymphadenopathy (ERIC WOODSON) Physical Exam Physical Exam General Appearance: well developed/nourished, alert, awake Cardiovascular: regular rate/rhythm Comments: Well-developed well-nourished person in no acute distress HEENT: Normal EENT exam; PERRL, EOMI, HEAD is atraumatic. moist mucous membranes. Neck: Supple, no lymphadenopathy, normal range of motion Back: Nontender, no CVA tenderness. Full range of motion Cardiovascular: Regular rate and rhythms no murmurs rubs Respiratory: No respiratory distress. Patient speaking in full complete sentences. Breath sounds clear to auscultation bilaterally: NO W/R/R Abdomen: Soft, nontender nondistended, no appreciable organomegaly. Normal bowel sounds. No rebound/guarding Extremity: No edema, full range of motion of extremities Neuro: Alert oriented x3, motor sensory normal, There were no obvious focal neurologic abnormalities. Skin: No appreciable rash on exposed skin, skin is warm and dry. Psych: Mood and affect is normal, memory and judgment is normal. Core Measures ACS in differential dx? Yes Severe Sepsis Present: No Septic Shock Present: No (KINA MORALES,ERIC) Progress Differential Diagnosis: AMI, atrial fibrillation, hyperkalemia, musculoskeletal pain, myocarditis, pericarditis, pneumonia, pneumothorax, PSVT, pulmonary embolism, unstable angina, V-fib/V-Tach Plan of Care: Orders Procedure Date/time Status PARTIAL THROMBOPLASTIN TIME 11/05 1640 Complete PROTHROMBIN TIME 11/05 1640 Complete Telemetry/Punch Operator 11/05 1639 Active MAGNESIUM 11/05 1639 Complete COMPREHENSIVE METABOLIC PANEL 11/05 1639 Complete CBC WITHOUT DIFFERENTIAL 11/05 1639 Complete EKG 11/05 1635 Active Laboratory Tests 11/05/16 1640: Anion Gap 16, Estimated GFR 42 L, BUN/Creatinine Ratio 25.4 H, Glucose 117 H, Calcium 9.3, Magnesium 1.9, Total Bilirubin 0.6, AST 40 H, ALT 45, Alkaline Phosphatase 49, Total Protein 7.1, Albumin 4.0, Globulin 3.1, Albumin/Globulin Ratio 1.3, PT 16.1 H, INR 1.54 H, APTT 49 H, CBC w Diff NO MAN DIFF REQ, RBC 3.91 L, MCV 80.0 L, MCH 26.4 L, RDW 16.2 H, MPV 9.4, Gran % 77.7 H, Lymphocytes % 13.0 L, Monocytes % 7.7, Eosinophils % 1.3, Basophils % 0.3, Absolute Granulocytes 6.5, Absolute Lymphocytes 1.1 L, Absolute Monocytes 0.6, Absolute Eosinophils 0.1, Absolute Basophils 0, PUBS MCHC 32.9 L Labs pending patient denies any complaints at this time, case in EKG reviewed with Dr. leblanc agrees with plan Patient's creatinine at baseline, H&H is improved from baseline has history of anemia. 11/05/2016 5:37:01 PM patient remains normal sinus on the monitor I discussed them at length all other lab results. The patient alternates itching 4 mg and 6.5 mg of Coumadin I advised she take 6.5 this evening and tomorrow as she normally would tomorrow. She will follow up with the [facility] clinic on Monday as well as her skein bleacher. I had an extensive conversation regarding need for close follow up with their primary care physician this week as well as return precautions. I answered all of their questions, they feel comfortable with the plan and follow-up care. (ERIC WOODSON) Pre-Hospital EKG: svt 160s Initial ED EKG: normal intervals, normal p-waves, normal QRS complex, normal sinus rhythm (90) Prior EKG: unchanged Rhythm Strip: normal sinus rhythm (ERIC WOODSON) Departure Departure Time of Disposition: 1734 Disposition: HOME OR SELF CARE Condition: Stable Clinical Impression Primary Impression: SVT (supraventricular tachycardia) Secondary Impressions: Subtherapeutic international normalized ratio (INR) Referrals: JENNIFER JIMENEZ,MARIA ELENA Beltran (PCP/Family) Additional Instructions: follow up with your skein bleacher on monday. take coumadin 6.5mg tonight, and begin taking as you normally would tomorrow at 6.5mg. return with any concerns Departure Forms: Customer Survey General Discharge Information (ERIC WOODSON) PA/MARKETING AND PUBLIC RELATIONS MANAGER Co-Sign Statement Statement: ED Attending supervision documentation- [] I saw and evaluated the patient. I have also reviewed all the pertinent lab results and diagnostic results. I agree with the findings and the plan of care as documented in the PA's/MARKETING AND PUBLIC RELATIONS MANAGER's documentation. [X] I have reviewed the ED Record and agree with the PA's/MARKETING AND PUBLIC RELATIONS MANAGER's documentation. [] Additions or exceptions (if any) to the PAs/MARKETING AND PUBLIC RELATIONS MANAGER's note and plan are summarized below: [] (YOBANY JIMENEZ,RADHA Aguiar) Critical Care Note Critical Care Note Critical Care Time: non-applicable (ERIC WOODSON)
[2016-11-05 16:57] LABS: ABSOLUTE BASOPHIL COUNT 0 /CUMM (0.0-0.2); ABSOLUTE EOSINOPHIL COUNT 0.1 /CUMM (0.0-0.7); ABSOLUTE GRANULOCYTE CT 6.5 /CUMM (1.4-6.5); ABSOLUTE LYMPH COUNT 1.1 /CUMM (1.2-3.4); ABSOLUTE MONOCYTE COUNT 0.6 /CUMM (0.10-0.60); BASOPHIL % 0.3 % (0.0-2.0); EOSINOPHIL % 1.3 % (0-5); GRANULOCYTE % 77.7 % (42.2-75.2); HEMATOCRIT 31.3 % (37-47); MEAN CORPUSCULAR HGB 26.4 PG (27.0-31.0); MEAN CORPUSCULAR HGB CONC 32.9 G/DL (33.0-37.0); MEAN PLATELET VOLUME 9.4 FL (7.4-10.4); PLATELET COUNT 82 /CUMM (130-400); RBC DISTRIBUTION WIDTH 16.2 % (11.5-14.5); RED BLOOD CELL CT 3.91 /CUMM (4.20-5.40); WHITE BLOOD CELL COUNT 8.4 /CUMM (4.8-10.8)
[2016-11-05 17:02] LABS: PT 16.1 SEC (9.4-12.5); PTT 49 SEC (25-37)
[2016-11-05 17:42] VITALS: BP 107/55
== END 2016-11-05 18:01 ==
LOC: ERH 16:33
PROVIDERS: Physician Assistant Medical
DX: I47.1 Supraventricular tachycardia (principal); R79.1 Abnormal coagulation profile; Z79.01 Long term (current) use of anticoagulants
CPT/HCPCS: 93005; 93010

== ENCOUNTER 2017-10-21 14:18 | Inpatient (IN) | payer OTHER ==
[~2017-10-21] VITALS: Ht 165.1 cm; Wt 70.9 kg
[~2017-10-21 14:18] MED LIST changes: +BACTRIM DS TAB1 EACH PO; +KEFLEX500 M1 PO
--- NOTE | 2017-10-21 14:43 | CT SCAN REPORT ---
EXAMINATION: CT HEAD WITHOUT CONTRAST CLINICAL INFORMATION: Left-sided weakness with aphasia on warfarin. COMPARISON: MRI head 07/25/2016. CT head 07/23/2016. TECHNIQUE: Contiguous axial imaging was performed from the skull base to vertex without intravenous administration of contrast. DLP: 696.97 mGy-cm FINDINGS: No acute intracranial hemorrhage. There is encephalomalacia within the right posterior parietal and occipital lobes consistent with sequela of remote infarction. There is also encephalomalacia within the left parietal lobe which are new from prior examination. Prior infarcts within the left thalamus and left cerebral hemisphere are less apparent on this examination. Generalized parenchymal atrophy with proportionate dilation of the ventricles, sulci, basilar cisterns. No abnormal mass effect or midline shift is seen. Ramsey to white matter differentiation is otherwise well preserved. No extra-axial fluid collections are identified. The osseous structures and soft tissues are normal. The mastoid air cells and visualized portions of the paranasal sinuses are well aerated. IMPRESSION: No acute intracranial hemorrhage or evidence of acute territorial infarction. CT can be insensitive to subtle parenchymal changes. Consider MRI for further evaluation based on clinical suspicion. Encephalomalacia within the bilateral parietal lobes and right occipital lobe which are new from prior examination, compatible with sequela of remote infarction. Generalized parenchymal atrophy of the brain with scattered white matter disease most suggestive of the sequela of chronic microvascular ischemia. This result was discussed with Jude Preciado at 2:37 PM on 10/21/2017 and it was ascertained that the content and urgency of the report was understood at the time of direct communication.
[2017-10-21 14:48] LABS: ABSOLUTE BASOPHIL COUNT 0 /CUMM (0.0-0.2); ABSOLUTE EOSINOPHIL COUNT 0.1 /CUMM (0.0-0.7); ABSOLUTE GRANULOCYTE CT 18.1 /CUMM (1.4-6.5); ABSOLUTE LYMPH COUNT 1.6 /CUMM (1.2-3.4); ABSOLUTE MONOCYTE COUNT 0.9 /CUMM (0.10-0.60); BASOPHIL % 0.2 % (0.0-2.0); EOSINOPHIL % 0.5 % (0-5); GRANULOCYTE % 87.2 % (42.2-75.2); HEMATOCRIT 29.6 % (37-47); MEAN CORPUSCULAR HGB 28.8 PG (27.0-31.0); MEAN CORPUSCULAR HGB CONC 33.1 G/DL (33.0-37.0); PLATELET COUNT 90 /CUMM (130-400); RBC DISTRIBUTION WIDTH 14.7 % (11.5-14.5); RED BLOOD CELL CT 3.41 /CUMM (4.20-5.40); WHITE BLOOD CELL COUNT 20.8 /CUMM (4.8-10.8)
[2017-10-21 14:57] LABS: PTT 30 SEC (25-37)
--- NOTE | 2017-10-21 15:14 | RADIOLOGY REPORT ---
EXAMINATION: XR PORTABLE CHEST CLINICAL INFORMATION: Left-sided weakness. Nausea and vomiting. COMPARISON: Chest x-ray 07/23/2016 TECHNIQUE: Portable frontal view of the chest was obtained. 2:48 PM FINDINGS: There is emphysematous hyperinflation of lungs with chronic coarse increased lung markings. There is no acute abnormality. There is no pulmonary vascular congestion. There is no acute infiltrate or pleural effusion. There is no pneumothorax. The cardiac and the mediastinal contours are unchanged. IMPRESSION: Emphysematous hyperinflation of lungs. No acute abnormality of chest.
--- NOTE | 2017-10-21 16:52 | History & Physical ---
[facility] 10/21/17 1651: General Information and HPI MD Statement: I have seen and personally examined LM HINKLE and documented this H&P. The patient is a 57 year old F who presented with a patient stated chief complaint of [Syncopal episode, AMS]. Source of Information: patient, family, old records Exam Limitations: no limitations History of Present Illness: Mrs. 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 Migrain), hyperlipidemia, SVT, CKD, hypothyroidism, who presented to emergency department with a chief complaint of semi-syncopal attack and altered mental status. Most of the history obtained from patient has been Mr. Hinkle, her he mentioned that today his went to the bathroom to wash herself she was standing in front of the sink trying to clean herself but he noticed that she wasn't able to hold stuff properly, and all of the sudden she lost all of her tone and fell on the floor, he mentioned that he was able to move quickly and hold her, however she hit the back of her head slightly. She did not lost her consciousness, but he noticed that she had more weakness on the left side of her body, and she was not able to answer his questions, he mentioned that the patient was completely off, confused, more weak. He wasn't sure what to do so he called 911 who brought her to our emergency department all of the above falls happened around 12:30 this afternoon. Prior to the arrival of EMS she had one episode of vomiting and after work he noticed that she had cough and difficulty clearing her throat, with frequent spitting. Of note: Patient was discharged from our hospital on July 2016, after being treated for multi-infarct stroke she was discharged to [facility] she stayed there until August, after work she discharged home with home health service until last fall when they cleared her up and recommended following up with outpatient rehabilitation which she did, currently she is following with [facility] once a week, she sees physical therapist, speech therapist and occupational therapist. After her discharge she was following with neurologist Kulwant Marquez, device repair technician iva Menezes, canceling and cutting control clerk Compa Schmidt and physical therapist center manager Josi Milan. After her discharge from our hospital with a diagnosis was made for antiphospholipid syndrome, the multi-infarct was attributes it to this diagnosis, she was started on Coumadin, and device repair technician recommended prednisone daily to improve her symptoms. Per her urologist recommended procedures through her thigh to prevent further stroke ?(Unknown), which he didn't remember the name of procedure, however I asked him specifically if there is any history of arrhythmia as it was noticed that on her previous hospitalization at our hospital she was noted to have narrow complex tachycardia treated with adenosine, also her canceling and cutting control clerk notes she has AB chato reentrant tachycardia. Allergies/Medications Allergies: Coded Allergies: No Known Allergies (09/05/16) Past History Travel History Traveled to [place] past 21 day No Medical History Neurological: CVA, TIA, CHRONIC HEADACHES EENT: NONE Cardiovascular: SVT Respiratory: NONE Gastrointestinal: NONE Hepatic: NONE Renal: NONE Musculoskeletal: NONE Psychiatric: NONE Endocrine: ?THYROID PROBLEM Blood Disorders: ANTIPHOSPHOLIPID SYNDROME Cancer(s): NONE SUPERVISOR HOME RESTORATION SERVICE/Reproductive: NONE Surgical History Surgical History: non-contributory Past Family/Social History Psychosocial History Who Do You Live With? spouse Services at Home: None Primary Language: Hebrew ETOH Use: denies use Illicit Drug Use: denies illicit drug use Functional Ability ADLs Independent: dressing, eating, toileting, bathing. Ambulation: independent (prior to stroke) IADLs Independent: shopping, housework, finances, food prep, telephone, transportation , medication admin. Assessment/Plan Assessment: Mrs. 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 Migrain), hyperlipidemia, SVT, CKD, hypothyroidism, who presented to emergency department with a chief complaint of semi-syncopal attack and altered mental status. Assessment: #AMS, Semi-syncopal episode #Worsening weakness on the left side #Bilateral visual feild/ acuity defect with a history of left homonomous hemianopsia #Hx. of antiphospholipid antibody syndrome #Hx. of hyperlipidemia, SVT, CKD, hypothyroidism #Patchy opacity on the right upper lobe, needs to watch for aspiration pneumonia #Possible jerky movement during the semisyncopal episode, watch for seizure Plan: * Will admitt the patient to telemetry floor * TREND Troponin and EKG * Will give ASA * Case discussed with Dr. hannon, there is a high possibilities that the patient has new infarction on the same anatomical site as last time, however given that the patient is confused and there is a new finding on examination of visual defect on the right side, she is out of TPA window and also no MRI availability at our facility, it's better to call the [facility] and discuss with an attending at [place] the transfer for head MRI and possible thrombectomy if emboli is found. * Will check UA, Urine toxicology * Meidcation confirmed and updated on CMR, she is on Rituxan infusion * DVT ppx Coumadin * She is full code As Ranked By This Provider Problem List: 1. Nausea & vomiting 2. CVA (cerebral vascular accident) Core Measures/Misc (03/12) Acute Coronary Syndrome ACS Diagnosis: No Congestive Heart Failure Congestive Heart Failure Diagnosis No Cerebrovascular Accident CVA/TIA Diagnosis: No VTE (View Protocol) VTE Risk Factors Acute Medical Illness No Mechanical VTE Prophylaxis d/t N/A MechProphylax Ordered No VTE Pharm Prophylaxis d/t NA PharmProphylax ordered Sepsis (View protocol) Sepsis Present: No Jude Preciado MD 10/21/17 1658: Review of Systems Review of Systems Constitutional: Reports: no symptoms. Exam & Diagnostic Data Last 24 Hrs of Vital Signs/I&O Vital Signs Date Time Temp Pulse Resp B/P B/P Pulse O2 O2 Flow FiO2 Mean Ox Delivery Rate 10/21 2057 Nasal 1.0L Cannula 10/21 1831 98.9 92 16 142/70 98 Nasal 2.0L Cannula 10/21 1818 97.7 98 20 153/70 98 Nasal 2.0L Cannula 10/21 1629 96.9 90 17 141/63 100 Nasal 2.0L Cannula 10/21 1531 Nasal 2.0L Cannula 10/21 1530 92 123/60 100 Nasal 2.0L Cannula 10/21 1438 97.0 85 15 137/63 98 Nasal 2.0L Cannula Intake & Output 10/22 1600 10/22 0800 10/22 0000 Intake Total 285 Output Total 250 Balance 35 Intake, IV 225 Intake, Oral 60 Output, Urine 250 Patient 156 lb Weight Weight Bed scale Measurement Method Young Moya MD 10/21/17 4771: General Information and HPI Allergies/Medications Home Med list Acetaminophen 500 MG TABLET 2 TAB PO BID MAIN (Reported) Atorvastatin Calcium 40 MG TABLET 40 MG PO 1700 lipid management Calcium Carbonate/Vitamin D3 (Calcium 500 + D Tablet) (Unknown Strength) TABLET (Unknown Dose) PO DAILY SUPPLEMENT (Reported) Escitalopram Oxalate 10 MG TABLET 1 TAB PO DAILY MENTAL HEALTH (Reported) Ferrous Sulfate 325 MG (65 MG IRON) TABLET 1 TAB PO DAILY SUPPLEMENT ( Reported) Hydroxychloroquine Sulfate 200 MG TABLET 1 TAB PO BID ANTIPHOSPHOLIPID SYNDROME (Reported) Levothyroxine Sodium (Levoxyl) 75 MCG TABLET 1 TAB PO DAILY THYROID (Reported ) Metoprolol Succ XL (Toprol Xl) 50 MG TAB 50 MG PO DAILY heart health Multivitamin (Multi-Vitamin Daily) 1 EACH TABLET 1 TAB PO DAILY SUPPLEMENT ( Reported) Prednisone 5 MG TABLET 2 TAB PO DAILY STEROID (Reported) Warfarin Sodium (Coumadin) 4 MG TABLET 1 TAB PO TUWETHRSATSU BLOOD THINNER ( Reported) Warfarin Sodium 2 MG TABLET 1 TAB PO BLOOD THINNER (Reported) Attending MD Review Statement Attending Statement Attending MD Statement: examined this patient, discuss w/resident/PA/PLANT SAFETY ENGINEER, agreed w/resident/PA/PLANT SAFETY ENGINEER, discussed with family, discussed with nursing Attending Assessment/Plan: Ms. Hinkle is a 57 yo F with history of multi-infarct CVA at 2017 with a residual left sided weakness, Antiphospholipid antibody syndrome, chronic migraines, hyperlipidemia, SVT, CKD, hypothyroidism, who was bought in by due to complaints of altered mental status. 1. Altered mental status with left sided residual weakness that is worse - Permissive hypertension to be followed 2. Bilateral visual field - ?POULTRY GRADER defect 3. HTN, Dyslipidemia - previous strokes Initial plan was to admit to the floor - however with new visual field defects and ?POULTRY GRADER occlusion. Plan was made to transfer the patient to [place] after discussion with Neurology. Patient accepted at [place]. DVT px - on coumadin
--- NOTE | 2017-10-21 17:06 | ED NEURO DEFICIT/STROKE ---
See Addendum History of Present Illness General Chief Complaint: Neuro Symptoms/ Deficit Stated Complaint: CVA ISCHEMIC Source: patient, family, old records, EMS Exam Limitations: clinical condition Vital Signs & Intake/Output Vital Signs & Intake/Output Vital Signs Date Time Temp Pulse Resp B/P B/P Pulse O2 O2 Flow FiO2 Mean Ox Delivery Rate 10/21 1629 96.9 90 17 141/63 100 Nasal 2.0L Cannula 10/21 1531 Nasal 2.0L Cannula 10/21 1530 92 123/60 100 Nasal 2.0L Cannula 10/21 1438 97.0 85 15 137/63 98 Nasal 2.0L Cannula Allergies Coded Allergies: No Known Allergies (09/05/16) Reconcile Medications Acetaminophen 500 MG TABLET 2 TAB PO BID MAIN (Reported) Atorvastatin Calcium 40 MG TABLET 40 MG PO 1700 lipid management Calcium Carbonate/Vitamin D3 (Calcium 500 + D Tablet) (Unknown Strength) TABLET (Unknown Dose) PO DAILY SUPPLEMENT (Reported) Escitalopram Oxalate 10 MG TABLET 1 TAB PO DAILY MENTAL HEALTH (Reported) Ferrous Sulfate 325 MG (65 MG IRON) TABLET 1 TAB PO DAILY SUPPLEMENT ( Reported) Hydroxychloroquine Sulfate 200 MG TABLET 1 TAB PO BID ANTIPHOSPHOLIPID SYNDROME (Reported) Levothyroxine Sodium (Levoxyl) 75 MCG TABLET 1 TAB PO DAILY THYROID (Reported ) Metoprolol Succ XL (Toprol Xl) 50 MG TAB 50 MG PO DAILY heart health Multivitamin (Multi-Vitamin Daily) 1 EACH TABLET 1 TAB PO DAILY SUPPLEMENT ( Reported) Prednisone 5 MG TABLET 2 TAB PO DAILY STEROID (Reported) Warfarin Sodium (Coumadin) 4 MG TABLET 1 TAB PO TUWETHRSATSU BLOOD THINNER ( Reported) Warfarin Sodium 2 MG TABLET 1 TAB PO MONFRI BLOOD THINNER (Reported) Core Measure Meds Pre-Hospital coumadin Triage Note: PT TO ED WITH HX STROKE 1 YEAR AGO ON COUMADIN. LAST SEEN NORMAL AT 1230 TODAY THEN HAD NEAR SYNCOPAL EPISODE AFTER WALKING TO BATHROOM, NOW WITH RIGHT SIDED GAZE. RESIDUAL LEFT SIDED WEAKNESS FROM PRIOR STROKE. Triage Nurses Notes Reviewed? yes Onset: Just prior to arrival Duration: minute(s): (45), better, constant, continues in ED Timing: single episode today Severity: moderate, severe New Weakness: LUE, LLE Altered Sensations: LUE, LLE Vision Problem? No Glaucoma? No Impaired Ability: difficult to speak, unable to stand, unable to walk Baseline: alert, oriented x 3, uses cane/walker Associated Symptoms: trouble walking, weakness LMP (ages 10-50): post menopausal : No Patient currently breastfeeds: No HPI: The patient was last seen normal (1230PM) one hour prior to admission. She was noted to collapse having increased left-sided weakness and difficulty speaking unable to walk followed by nausea vomiting. Ui Application Developer reports some tonic-clonic movement or posturing of the bilateral upper extremities for short period of time. Spouse reports there was no fever chills diarrhea abdominal pain chest pain shortness breath headache dysuria rash. Recurrent from her stroke she has had continued left upper and lower extremity weakness with incoordination. Past History Travel History Traveled to [place] past 21 day No Medical History Any Pertinent Medical History? see below for history Neurological: CVA, TIA, CHRONIC HEADACHES EENT: NONE Cardiovascular: SVT Respiratory: NONE Gastrointestinal: NONE Hepatic: NONE Renal: NONE Musculoskeletal: NONE Psychiatric: NONE Endocrine: ?THYROID PROBLEM Blood Disorders: ANTIPHOSPHOLIPID SYNDROME Cancer(s): NONE MASTER PLUMBER/Reproductive: NONE Surgical History Surgical History: non-contributory Psychosocial History Who do you live with Spouse Services at Home None What is your primary language Kiswahili Tobacco Use: Never used ETOH Use: denies use Illicit Drug Use: denies illicit drug use Family History Hx Contributory? No Review of Systems Review of Systems Constitutional: Reports: see HPI, weakness. EENTM: Reports: no symptoms. Respiratory: Reports: no symptoms. Cardiovascular: Reports: no symptoms. GI: Reports: see HPI, nausea, vomiting. Genitourinary: Reports: no symptoms. Musculoskeletal: Reports: no symptoms. Skin: Reports: no symptoms. Neurological/Psychological: Reports: see HPI, tonic-clonic seizures (possible upper extremities), unable to move lower ext, unable to move upper ext, weakness. Hematologic/Endocrine: Reports: no symptoms. Immunologic/Allergic: Reports: no symptoms. All Other Systems: Reviewed and Negative Physical Exam Physical Exam General Appearance: well developed/nourished, alert, awake, anxious, severe distress Head: atraumatic Eyes: Bilateral: PERRL, EOMI, other (right gaze preference). Ears, Nose, Throat: normal ENT inspection, moist mucous membrane Neck: normal inspection, supple, full range of motion, trachea midline Respiratory: normal breath sounds, chest non-tender, no respiratory distress, quiet respiration Cardiovascular: regular rate/rhythm, normal peripheral pulses, norml femoral pulses equa Peripheral Pulses: 4+ carotid (R), 4+ carotid (L) Gastrointestinal: normal bowel sounds, soft, non-tender, no organomegaly Back: normal inspection, normal range of motion, no vertebral tenderness Extremities: normal range of motion, no ligament instability Psychiatric: awake, alert Cranial Nerves: abnormal eye position, abnormal gag reflex, abnormal pupil position, abnormal speech Coordination/Gait: ABN nose to finger (R), ABN nose to finger (L) Motor/Sensory: motor deficit, sensory deficit, positive Babinski's sign, pronator drift (L), weak motor strength LUE, weak motor strength LLE Reflexes: 0: bicep (L). 2+: bicep (R). Skin: intact, normal color, warm/dry Lymphatic: no anterior cervical shell Core Measures CVA/TIA Diagnosis: Yes NIH Stroke Scale NIH Stroke Scale Response Value Level of Consciousness alert 0 LOC Questions answers one correctly 1 LOC Commands obeys one correctly 1 Best Gaze forced deviation 2 Visual Dillon complete hemianopia 2 Facial Paresis normal 0 Motor Arm - Left can't resist gravity 2 Motor Arm - Right no drift 0 Motor Leg - Left can't resist gravity 2 Motor Leg - Right no drift 0 Limb Ataxia present in two limbs 2 Sensory partial loss 1 Best Language mild to moderate aphasia 1 Dysarthria mild/mod slurring words 1 Extinction and Inattention partial neglect 1 Total 16 Date Last Known Well: 10/21/17 Time Last Known Well: 1230 Symptom Start Date: 10/21/17 Symptom Start Time: 1300 Reason tPA not ordered Medical Contraindication Swallow Evaluation Fail Swallow eval date 10/21/17 Swallow eval time 1330 Sepsis Present: No Sepsis Focused Exam Completed? No Progress Differential Diagnosis: drug intoxication, electrolyte imbalance, hypoglycemia, intracranial Hem., intracranial mass/tumor, stroke, subarachnoid Hem., vertebrobasilar insuff. Plan of Care: Orders Procedure Date/time Status Nothing by Mouth 10/22 B Active LIPID PANEL 10/22 599 Active CBC WITHOUT DIFFERENTIAL 10/22 599 Active BASIC ELECTROLYTES PLUS BUN&CR 10/22 599 Active Nothing by Mouth 10/21 D Complete TROPONIN LEVEL 10/22 1999 Active EKG 10/22 1999 Active Pathway - chart 10/21 1702 Active Patient Data 10/21 1621 Active OXYGEN SETUP (GEN) 10/21 1521 Active Saline Lock 10/21 1521 Active Admit to inpatient 10/21 1521 Active Vital Signs 10/21 1521 Active Activity/Ambulation 10/21 1521 Active Code Status 10/21 1521 Active Johnson, Insertion/Removal/Asses 10/21 1520 Active CULTURE,URINE 10/21 1520 Active Intake & Output 10/21 1450 Active FingerStick- Glucose 10/21 1445 Active CBC WITHOUT DIFFERENTIAL 10/21 1438 Complete NIH Stroke Scale 10/21 1429 Active TROPONIN LEVEL 10/21 1422 Complete PARTIAL THROMBOPLASTIN TIME 10/21 1422 Complete PROTHROMBIN TIME 10/21 1422 Complete MAGNESIUM 10/21 1422 Complete LIPASE 10/21 1422 Complete COMPREHENSIVE METABOLIC PANEL 10/21 1422 Complete EKG 10/21 1422 Active TYPE & SCREEN (NOT X-MATCH) 10/21 1422 Complete PT Evaluate & Treat 10/21 UNK Active House Staff 10/21 UNK Active Occupational Tx Eval & Treat 10/21 UNK Active VTE Mechanical Prophylaxis 10/21 UNK Active Telemetry/Dictaphone Technician 10/21 UNK Active Precautions 10/21 UNK Active Elevate 10/21 UNK Active Current Medications Sig/Cathi Start time Last Medication Dose Stop Time Status Admin Dextrose/Sodium 1,000 ML Q13H 10/21 1745 UNVr Chloride 10/22 0644 (D5W-1/2 Normal Saline 1000ML) Laboratory Tests 10/21/17 1438: Anion Gap 13, Estimated GFR 38 L, BUN/Creatinine Ratio 24.3, Glucose 113 H, Calcium 8.7, Magnesium 1.8, Total Bilirubin 0.7, AST 31, ALT 51, Alkaline Phosphatase 54, Troponin I 0.01, Total Protein 6.7, Albumin 4.0, Globulin 2.7, Albumin/Globulin Ratio 1.5, Lipase 191, CBC w Diff MAN DIFF ORDERED, RBC 3.41 L , MCV 87.0, MCH 28.8, MCHC 33.1, RDW 14.7 H, MPV 9.0, Gran % 87.2 H, Lymphocytes % 7.5 L, Monocytes % 4.6, Eosinophils % 0.5, Basophils % 0.2, Absolute Granulocytes 18.1 H, Absolute Lymphocytes 1.6, Absolute Monocytes 0.9 H, Absolute Eosinophils 0.1, Absolute Basophils 0, Normocytic RBCs VERIFIED, Normochromic RBCs VERIFIED 10/21/17 1435: Lipase Cancelled, PT 18.0 H, INR 1.64 H, APTT 30, CBC w Diff Cancelled, WBC Cancelled, RBC Cancelled, Hgb Cancelled, Hct Cancelled, MCV Cancelled, MCH Cancelled, MCHC Cancelled, RDW Cancelled, Plt Count Cancelled, MPV Cancelled Microbiology 10/21 1535 URINE ROUT: Urine Culture - RECD Diagnostic Imaging: Viewed by Me: Radiology Read, CT Scan. Discussed w/RAD: Radiology Read, CT Scan. Radiology Impression: Distal portions of the right SUPERVISOR ASSEMBLY ROOM are not well visualized, possibly due to bolus contrast timing or sequela of prior vascular injury given the right SUPERVISOR ASSEMBLY ROOM territory encephalomalacia. No significant flow-limiting stenosis, aneurysm, occlusion or other vascular malformation in the head and neck. Minimal patchy opacity in the right upper lobe, nonspecific. May represent sequela of hypoventilatory changes or a nonspecific infectious/inflammatory etiology. Correlate clinically. No significant change in the appearance of the brain on the noncontrast portion of the examination., No acute intracranial hemorrhage or evidence of acute territorial infarction. CT can be insensitive to subtle parenchymal changes. Consider MRI for further evaluation based on clinical suspicion. Encephalomalacia within the bilateral parietal lobes and right occipital lobe which are new from prior examination, compatible with sequela of remote infarction. Generalized parenchymal atrophy of the brain with scattered white matter disease most suggestive of the sequela of chronic microvascular ischemia. CXR Impression: Emphysematous hyperinflation of lungs. No acute abnormality of chest. Initial ED EKG: normal axis, normal intervals, normal p-waves, normal QRS complex, normal sinus rhythm, no ST T wave changes Comments: D/W Neurology. No TPA indicated. If seizes start keppra. Departure Departure Disposition: STILL A PATIENT Condition: Fair Clinical Impression Primary Impression: CVA (cerebral vascular accident) Secondary Impressions: Leukocytosis, Nausea & vomiting Referrals: Thuan JIMENEZ,Prashanth Beltran (PCP/Family) Departure Forms: Customer Survey General Discharge Information Critical Care Note Critical Care Note Critical Care Time: 30-74 min (60)
[2017-10-21] MEDS ORDERED: HYDROXYCHLOROQ200 M2 PO (17:08)
[2017-10-21] MEDS ORDERED: ESCITALOPRAM OX10 MG PO (17:08)
[2017-10-21] MEDS ORDERED: WARFARIN SODIUM2 M1 PO (17:09)
[2017-10-21] MEDS ORDERED: CALCIUM 500 +1 EAC5 PO (17:12)
[2017-10-21] MEDS ORDERED: ACETAMINOPHEN500 M4 PO (17:12)
[2017-10-21] MEDS ORDERED: PREDNISONE5 M1 PO (17:12)
[2017-10-21] MEDS ORDERED: MULTI-VITAMIN1 EACH PO (17:13)
--- NOTE | 2017-10-21 17:35 | CT SCAN REPORT ---
EXAMINATION: CT ANGIOGRAM HEAD AND NECK CLINICAL INFORMATION: Left-sided weakness and aphasia COMPARISON: CT head dated earlier on 10/21/2017. TECHNIQUE: Test bolus sequences followed by intravenous administration 100 mL of Optiray 320 intravenous contrast. Helical imaging was performed in the axial plane from the mediastinum to the skull vertex. Delayed postcontrast imaging of the head was also performed. The data was processed at the food technologist's workstation for generation of MIP sequences. Three-dimensional volume rendered reformatted images were also generated at an offline 3-D workstation. DLP: 1712.21 mGy-cm FINDINGS: HEAD: Stable encephalomalacia within the bilateral parietal lobe and right occipital lobe. Punctate foci of the right cerebral hemisphere. Punctate encephalomalacic is. No intracranial mass, intercerebral edema, hemorrhage, or midline shift is evident. Stable generalized parenchymal atrophy of the brain with proportionate dilation of the ventricles, sulci, and basilar cisterns. No extra-axial collections are appreciated. The paranasal sinuses are well aerated and clear. SOFT TISSUES AND LUNG APICES: Patchy small opacities in the right lung apex are nonspecific and may represent sequela of hypoventilatory changes or a nonspecific infectious/inflammatory etiology . NECK CTA: The aortic arch has a classic configuration and the major arch vessel origins are non-stenotic. The vertebral arteries are co-dominant throughout the neck with dominance of the V4 segment of the right. Both vertebral origins are widely patent. Both common carotid arteries are normal in course and caliber. Both internal carotid arteries demonstrate minimal nonflow-limiting atherosclerosis in the supraclinoid segments without flow-limiting stenosis. CRANIAL CTA: There is normal opacification of the major intracranial vessels. Persistent origin of left CORRECTION OFFICER REFORMATORY. The distal portions of the right CORRECTION OFFICER REFORMATORY are not well visualized, possibly due to bolus contrast timing. No acute proximal large vessel occlusion, focal flow-limiting stenosis, or saccular intracranial aneurysm is identified. No abnormal parenchymal enhancement or regional oligemia is visualized. IMPRESSION: Distal portions of the right CORRECTION OFFICER REFORMATORY are not well visualized, possibly due to bolus contrast timing or sequela of prior vascular injury given the right CORRECTION OFFICER REFORMATORY territory encephalomalacia. No significant flow-limiting stenosis, aneurysm, occlusion or other vascular malformation in the head and neck. Minimal patchy opacity in the right upper lobe, nonspecific. May represent sequela of hypoventilatory changes or a nonspecific infectious/inflammatory etiology. Correlate clinically. No significant change in the appearance of the brain on the noncontrast portion of the examination.
[2017-10-21 18:31] VITALS: BP 142/70
--- NOTE | 2017-10-21 20:30 | Discharge Summary ---
See Addendum Visit Information Visit Dates Admission Date: 10/21/17 Discharge Date: 10/21/2017 Hospital Course Course Attending Physician: Young Moya MD Primary Care Physician: Prashanth Larose MD Hospital Course: Mrs. 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 Migrain), hyperlipidemia, SVT, CKD, hypothyroidism, who presented to emergency department with a chief complaint of semi-syncopal attack and altered mental status. Most of the history obtained from patient Mr. Petty, her he mentioned that today his went to the bathroom to wash herself she was standing in front of the sink trying to clean herself but he noticed that she wasn't able to hold stuff properly, and all of the sudden she lost all of her tone and fell on the floor, he mentioned that he was able to move quickly and hold her, however she hit the back of her head slightly. She did not lost her consciousness, but he noticed that she had more weakness on the left side of her body, and she was not able to answer his questions, he mentioned that the patient was completely off, confused, more weak. He wasn't sure what to do so he called 911 who brought her to our emergency department all of the above events happened around 12:30 this afternoon. Prior to the arrival of EMS she had one episode of vomiting, he noticed that she had cough and difficulty clearing her throat, with frequent spitting. Of note: Patient was discharged from our hospital on July 2016, after being treated for multi-infarct stroke she was discharged to [facility] she stayed there until August, after work she discharged home with home health service until last fall when they cleared her up and recommended following up with outpatient rehabilitation which she did, currently she is following with [facility] 2-3 times a week, she sees physical therapist, speech therapist and occupational therapist. After her discharge she was following with neurologist Kulwant Marquez, community relations assistant iva Menezes, business services vice president Compa Schmidt and zipper trimmer hand Josi Milan. After her discharge from our hospital with a diagnosis was made for antiphospholipid syndrome, the multi-infarct was attributes it to this diagnosis, she was started on Coumadin, and community relations assistant recommended prednisone daily to improve her symptoms, she is also on Rituxan infusion every 3 month. Per her neurologist recommended procedures through her thigh to prevent further stroke ?(Unknown), which he didn't remember the name of procedure, however I asked him specifically if there is any history of arrhythmia as it was noticed that on her previous hospitalization at our hospital she was noted to have narrow complex tachycardia treated with adenosine , also her business services vice president notes she has AB chato reentrant tachycardia. At ED patient to have stable vitals, she was awake, alert, oriented x2, her examination is pertinent to mydriasis, eyes reactive to light, abnormal visual acuity bilaterally and visual feild (She has a residual homonymous hemianopia), slurred speech, she has normal sensation in all extrimities, motor examination is pertinent to 2/5 in LUE, 3/5 in Lt LE, 5/5 in the right upper and lower extrimities. abnormal rapid alternating movement, abnormal nose to finger, +ve pronator drift. +ve babiniski on the left side. Per the abnormal vision on the right side is new. CTA head and neck: IMPRESSION: Distal portions of the right X RAY EQUIPMENT TESTER are not well visualized, possibly due to bolus contrast timing or sequela of prior vascular injury given the right X RAY EQUIPMENT TESTER territory encephalomalacia. No significant flow-limiting stenosis, aneurysm, occlusion or other vascular malformation in the head and neck. Minimal patchy opacity in the right upper lobe, nonspecific. May represent sequela of hypoventilatory changes or a nonspecific infectious/inflammatory etiology. Correlate clinically. No significant change in the appearance of the brain on the noncontrast portion of the examination. Assessment: #AMS, Semi-syncopal episode #Encephalopathy #Worsening weakness on the left side #Bilateral visual feild/ acuity defect with a history of left homonomous hemianopsia #Hx. of antiphospholipid antibody syndrome #Hx. of hyperlipidemia, SVT, CKD, hypothyroidism #Patchy opacity on the right upper lobe, needs to watch for aspiration pneumonia #Possible jerky movement during the semisyncopal episode, watch for seizure We had prolonged discussion with oncall neurologist , examination findings and CTA findings discussed with him, as the patient is already out of the TPA window, also she has encephalopathy of unknown etiology, with no MRI capability at our facility during the weekend, will transfer the patient to [place] , my attenting discussed the case with neurologist at [facility] who accept to transfer Accepting physician is Dr. OMER FLORES. Allergies: Coded Allergies: No Known Allergies (09/05/16) Disposition Summary Disposition Principal Diagnosis: #AMS, Semi-syncopal episode #Encephalopathy #Worsening weakness on the left side #Bilateral visual feild/ acuity defect with a history of left homonomous hemianopsia #Hx. of antiphospholipid antibody syndrome #Hx. of hyperlipidemia, SVT, CKD, hypothyroidism #Patchy opacity on the right lung apex, needs to watch for aspiration pneumonia #Possible jerky movement during the semisyncopal episode, watch for seizure Additional Diagnosis: As above Discharge Disposition: other general hospital Discharge Instructions General Discharge Information Code Status: Full Code Patient's Diet: NPO Patient's Activity: As tolerated Follow-Up Instructions/Appts: Follow up with your PCP and specialist after discharge from [place] Medications at Discharge Discharge Medications: Continue taking these medications: Atorvastatin Calcium (Atorvastatin Calcium) 40 MG TABLET 40 Milligram ORAL 5 PM Qty = 1 Metoprolol Succ XL (Toprol Xl) 50 MG TAB 50 Milligram ORAL DAILY Qty = 1 Warfarin Sodium (Coumadin) 4 MG TABLET 1 Tablet ORAL TUWETHRSATSU Ferrous Sulfate (Ferrous Sulfate) 325 MG (65 MG IRON) TABLET 1 Tablet ORAL DAILY Levothyroxine Sodium (Levoxyl) 75 MCG TABLET 1 Tablet ORAL DAILY Escitalopram Oxalate (Escitalopram Oxalate) 10 MG TABLET 1 Tablet ORAL DAILY Qty = 90 Hydroxychloroquine Sulfate (Hydroxychloroquine Sulfate) 200 MG TABLET 1 Tablet ORAL TWICE DAILY Qty = 60 Warfarin Sodium (Warfarin Sodium) 2 MG TABLET 1 Tablet ORAL MONFRI Prednisone (Prednisone) 5 MG TABLET 2 Tablet ORAL DAILY Calcium Carbonate/Vitamin D3 (Calcium 500 + D Tablet) (Unknown Strength) TABLET Unknown Dose ORAL DAILY Acetaminophen (Acetaminophen) 500 MG TABLET 2 Tablet ORAL TWICE DAILY Multivitamin (Multi-Vitamin Daily) 1 EACH TABLET 1 Tablet ORAL DAILY Copies To: Hellen Snyder MD Attending MD Review Statement Documenting Attending: Hellen Snyder MD Other Findings: I briefly evaluated the patient who was admitted earlier today for acute stroke. Patient has a h/o right MCA stroke with residual left sided deficit with partial left homonymous hemianopsia, antiphospholipid antibody syndrome on coumadin, ? vasculitis on prednisone, and Rituxan infusions (unclear reason). Currently, patient is awake, but not oriented to time or place, she is able to follow a few verbal commands when attempting a neuro exam. Speech is slurred. I am unable to assess her visual acuity. Her pupils are semi-dilated and sluggishly reactive to light, she is not able to track my finger and has difficulty locating my finger bilaterally. Her muscle tone is good, power is 3/5 on left and 4/5 on the right. I discussed with Dr. House (on-call neurologist). CTA head and neck is unable to visualize right X RAY EQUIPMENT TESTER - but this is from her previous infarct with resultant left homonymous hemianopsia. It is unclear at this point if patient has an acute stroke or is encephalopathic due to metabolic issues. She will benefit from an MRI and EEG (?if she had a seizure). There is no acute thrombus or occlusion, and thus no need for thrombectomy at this point. Unfortunately, we do not have MRI or EEG services at [place] during the weekend, and hence patient will benefit from transfer to higher level of care. I discussed above with Dr. Omer Flores (Neurologist) at [place] [facility] physician. Patient will be transferred to [place] ER for appropriate triage and MRI. Plan was discussed with housestaff, RN and nursing bead supervisor. I also updated patient's (who was at bedside) about the transfer. Total time spent in co-ordinating transfer and paperwork about 60 minutes.
--- NOTE | 2017-10-21 20:36 | Patient Discharge Instructions ---
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 Special Instructions: -Follow up with your PCP as an outpatient -Follow up with your regulatory compliance coordinator, neurologist, and factory maintenance manager as an outpatient Acute Coronary Syndrome Inclusion Criteria At DC or during hospital stay patient has or had the following: ACS DIAGNOSIS No Discharge Core Measures Meds if any: Prescribed or Continued at Discharge Meds if any: NOT Prescribed or Continued at Discharge Congestive Heart Failure Inclusion Criteria At DC or during hospital stay patient has or had the following: CHF DIAGNOSIS No Discharge Core Measures Meds if any: Prescribed or Continued at Discharge Meds if any: NOT Prescribed or Continued at Discharge Cerebrovascular accident Inclusion Criteria At DC or during hospital stay patient has or had the following: CVA/TIA Diagnosis Yes Discharge Core Measures Meds if any: Prescribed or Continued at Discharge Meds if any: NOT Prescribed or Continued at Discharge Venous thromboembolism Inclusion Criteria VTE Diagnosis No VTE Type NONE VTE Confirmed by (Test) NONE Discharge Core Measures - Per Current guidelines, there needs to be overlap - treatment for the first 5 days of Warfarin therapy. - If discharged on Warfarin prior to 5 days of - overlap therapy, the patient will need to be - assessed for post discharge needs including - *Post discharge parental anticoagulation - *Warfarin and/or parental anticoagulation education - *Follow up date to check INR post discharge At least 5 days overlap therapy as Inpatient No Meds if any: Prescribed or Continued at Discharge Note: Overlap Therapy is Warfarin and Anticoagulant Meds if any: NOT Prescribed or Continued at Discharge
== END 2017-10-21 22:50 | disposition short-term general hospital (02) | DRG 204 ==
LOC: ERH 14:18 → 1NO 16:21 → ERHI 16:21 → ENRESERV 16:43 → ENTRNSPT 18:23 → EDTRNSPTSTS 18:54 → EDTRNSPT 18:54 → 1NO 19:09 → CMPTRNSPT 19:15 → ENPENDDIS 21:57 → 1NO 22:50
PROVIDERS: Emergency Medicine
DX: R55 Syncope and collapse (principal); G93.40 Encephalopathy, unspecified; E03.9 Hypothyroidism, unspecified; E78.5 Hyperlipidemia, unspecified; I47.1 Supraventricular tachycardia; R51 Headache; D68.61 Antiphospholipid syndrome; I69.351 Hemiplegia and hemiparesis following cerebral infarction affecting right dominant side; I69.312 Visuospatial deficit and spatial neglect following cerebral infarction; Z79.52 Long term (current) use of systemic steroids; Z79.01 Long term (current) use of anticoagulants; I12.9 Hypertensive chronic kidney disease with stage 1 through stage 4 chronic kidney disease, or unspecified chronic kidney disease; N18.9 Chronic kidney disease, unspecified
CPT/HCPCS: 1NP; 71045; 80307; 81001; 87086; 93005; 93010; 96374; 96375; J2405; J2765; J7042; J7512